=== PATIENT | female | born 2005 | race Caucasian/White ===

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

== ENCOUNTER 2024-01-23 11:13 | Emergency (ER) | payer OTHER, SELFPAY ==
[2024-01-23 11:24] VITALS: BP 115/70; PULSE 82; RESP 18; TEMP 36.5; O2SAT 100
[2024-01-23 11:25] VITALS: BP 115/70; PULSE 82; RESP 18; TEMP 36.5; O2SAT 100
--- NOTE | 2024-01-23 11:25 | ED.SKABFB ---
HPI - Skin/Abscess/Foreign Bdy General Chief complaint: Skin/Abscess/Foreign Body Stated complaint: rt thumb infection Source: patient Mode of arrival: ambulatory Limitations: no limitations History of Present Illness HPI narrative: 18 y/o female presented for c/o redness and swelling to right thumb since yesterday. Reports cutting the finger on a metal clip the day prior. Endorses decreased ROM to the thumb due to swelling. Cleaned the site several times with hydrogen peroxide. States the site became more red and irritated yesterday following yardwork and tree work; the wound was not covered at the time. States she removed debris from the site last night.Denies numbness, tingling, fever or chills. Related Data Home Medications Medication Instructions Recorded Confirmed epinephrine 0.3 mg/0.3 mL 0.3 ml IM PRN Anaphylaxis 07/28/21 08/23/23 injection, auto-injector etonogestrel 0.12 mg-ethinyl See Rx Instructions .Route .COMPLEX 08/10/22 08/23/23 estradiol 0.015 mg/24 hr vaginal ring (NuvaRing) Allergies Allergy/AdvReac Type Severity Reaction Status Date / Time venom-honey bee Allergy Severe Anaphylaxis Verified 01/23/24 11:24 AMOXICILLIN TRIHYDRATE AdvReac Intermediate Nausea and Uncoded 01/23/24 11:24 Vomiting POTASSIUM CLAVULANATE AdvReac Intermediate Nausea and Uncoded 01/23/24 11:24 Vomiting Review of Systems Review of Systems: CONSTITUTIONAL: Denies body aches, fever, chills, or sweats. CARDIOVASCULAR: Denies chest pain, palpitations, or edema. RESPIRATORY: Denies cough or dyspnea. GASTROINTESTINAL: Denies abdominal pain, nausea, vomiting, or diarrhea. SKIN: reports swelling to right thumb MUSCULOSKELETAL: Denies back pain, joint pain, or myalgia. NEUROLOGIC: Denies headache, numbness, tingling, or weakness. [facility] Social History Social History Gender identity (if verbalized by the patient): Female Comments At time of signature, I have reviewed and agree with nursing past medical, surgical, social and family history unless otherwise noted. Please see nursing chart for further information. There is no relevant family history pertinent to the presenting complaint Exam Narrative: GENERAL: Well-appearing ENT: Mucous membranes moist. Oropharynx without edema, erythema or lesions. CHEST: Clear to auscultation. HEART: Regular rate and rhythm. SKIN: Warm, dry. Right thumb palmar surface with approx 0.5cm linear superficial lac at IP joint with surrounding swelling, erythema, and tenderness to IP area. No fluctuance or active drainage. Dorsal aspect of 1st metacarpal with mildly erythematous streak vs abrasion approx 2.5cm, nontender. Decreased ROM at IP joint due to swelling. Finger cascade performed without difficulty. Sensation intact to digit. Cap refill <3seconds. NEURO: Alert and oriented x3. Extrem: Hand/finger images: 1. area of erythema, mild swelling, tender 2. IP joint with 0.5cm linear wound without drainage 3. linear area of superficial erythema Course Course Emergency Course: Patient is aware of diagnosis, understands and agrees to treatment plan. Anticipatory guidance given. Patient agrees to follow-up as directed and is aware of reasons to seek care at the emergency department. Portions of this record may have been created with voice recognition software Level of Care: Express Care Visit Vital Signs Vital signs: Vital Signs Temperature 97.7 F 01/23/24 11:24 Pulse Rate 82 01/23/24 11:24 Respiratory Rate 18 01/23/24 11:24 Blood Pressure 115/70 01/23/24 11:24 Pulse Oximetry 100 01/23/24 11:24 Oxygen Delivery Room Air 01/23/24 11:24 Temperature 97.7 F 01/23/24 11:25 Pulse Rate 82 01/23/24 11:25 Respiratory Rate 18 01/23/24 11:25 Blood Pressure 115/70 01/23/24 11:25 Pulse Oximetry 100 01/23/24 11:25 Oxygen Delivery Room Air 01/23/24 11:25 Reviewed
== END 2024-01-23 11:46 | disposition home or self-care (01) ==
PROVIDERS: Emergency Provider Nurse Practitioner Family; PCP Physician Assistant
DX: S61.001A Unspecified open wound of right thumb without damage to nail, initial encounter (principal); L03.011 Cellulitis of right finger; W45.8XXA Other foreign body or object entering through skin, initial encounter
CPT/HCPCS: 99213; G0463

== ENCOUNTER 2024-08-19 10:39 | Emergency (ER) | payer OTHER, SELFPAY ==
--- NOTE | ~2024-08-19 | XR_ITS ---
Clinical Indication: Cough PA and lateral views of the chest: Comparison: 03/30/2022 Findings: The lungs are clear, without evidence of focal consolidation or pleural effusion. Cardiome diastinal silhouette is within normal limits. Bones and soft tissues are unremarkable. Impression: Normal chest. Reviewed, dictated and finalized at location . [employer] ST[employer] Impression: Normal chest.
[2024-08-19 10:59] VITALS: BP 109/68; PULSE 74; RESP 16; TEMP 36.6; O2SAT 99
--- NOTE | 2024-08-19 12:16 | ED.GENADULT ---
HPI - General Adult General Chief complaint: Upper Respiratory Infection Stated complaint: cough/congestion Source: patient Mode of arrival: ambulatory Limitations: no limitations History of Present Illness HPI narrative: Patient presents for evaluation of a cough for the last 7-10 days. Cough is productive of yellow sputum. She also has nasal congestion, thick yellow drainage from the nares and a popping sensation in the ears. she denies any fever, chills, nausea, vomiting, diarrhea. She has several family members who currently have pneumonia. She has tried mucinex for her symptoms. She does not smoke. Related Data Home Medications ?Medication ?Instructions ?Recorded ?Confirmed ?Last Taken ?Type epinephrine 0.3 mg/0.3 mL 0.3 ml IM PRN Anaphylaxis 07/28/21 08/23/23 Unknown History injection, auto-injector etonogestrel 0.12 mg-ethinyl See Rx Instructions .Route .COMPLEX 08/10/22 08/23/23 Unknown History estradiol 0.015 mg/24 hr vaginal ring (NuvaRing) Allergies Allergy/AdvReac Type Severity Reaction Status Date / Time venom-honey bee Allergy Severe Anaphylaxis Verified 08/19/24 11:14 AMOXICILLIN TRIHYDRATE AdvReac Intermediate Nausea and Uncoded 08/19/24 11:14 Vomiting POTASSIUM CLAVULANATE AdvReac Intermediate Nausea and Uncoded 08/19/24 11:14 Vomiting Review of Systems Review of Systems: CONSTITUTIONAL: Denies fever, chills, or sweats. EYES: Denies visual changes, redness, or discharge. ENT: Reports popping sensation in the ears, sinus congestion and thick yellow nasal drainage. Denies rhinorrhea, sore throat, or otalgia. CARDIOVASCULAR: Denies chest pain, palpitations, or edema. RESPIRATORY: reports cough. GASTROINTESTINAL: Denies abdominal pain, nausea, vomiting, or diarrhea. GENITOURINARY: Denies dysuria or hematuria. SKIN: Denies rash or itching. MUSCULOSKELETAL: Denies back pain, joint pain, or myalgia. NEUROLOGIC: Denies headache, numbness, dizziness, or weakness. PSYCHIATRIC: Denies anxiety or depression. [facility] Past Medical History Medical History No pertinent past medical history Surgical History Surgical History History of tympanostomy tube placement History of tonsillectomy Family History Family History Mother Family history non-contributory Social History Social History Smoking status: Never smoker Substance use: never Living arrangements: with family Gender identity (if verbalized by the patient): Female Exam Narrative: GENERAL: Well-appearing, well-nourished, and in no acute distress. HEAD: Normocephalic, atraumatic. EYES: PERRLA and EOMI. ENT: Nares clear, no rhinorrhea or epistaxis. Mucous membranes moist. There is posterior pharyngeal erythema. There is bilateral tympanic membrane erythema with bulging of the TM's NECK: Supple. No adenopathy or masses. No carotid bruits or JVD CHEST: Mid wheezing present in all lung art. HEART: Regular rate and rhythm. No murmur heard. Normal peripheral pulses. ABDOMEN: Soft, nontender, nondistended, normal active bowel sounds. EXTREMITIES: Normal range of motion. No edema. SKIN: Warm, dry, no rash. NEURO: No focal deficits. Alert and oriented x3. PSYCH: Normal mood and affect. Course Course Emergency Course: This is a 18-year-old female who presented for evaluation of cough. CXR was normal. She does have otitis media on exam and has mild wheezing present. Will dc with cefdinir and prednisone. Increase hydration. Dony-muv-xmbkith agents for symptom management. Follow up with primary provider. Go to the ER for worsening symptoms. Patient in agreement with plan of care. Level of Care: Express Care Visit Vital Signs Vital signs: Vital Signs Temperature 36.6 C 08/19/24 10:59 Pulse Rate 74 08/19/24 10:59 Respiratory Rate 16 08/19/24 10:59 Blood Pressure 109/68 08/19/24 10:59 Pulse Oximetry 99 08/19/24 10:59 Oxygen Delivery Room Air 08/19/24 10:59 Temperature 36.6 C 08/19/24 10:59 Pulse Rate 74 08/19/24 10:59 Respiratory Rate 16 08/19/24 10:59 Blood Pressure 109/68 08/19/24 10:59 Pulse Oximetry 99 08/19/24 10:59 Oxygen Delivery Room Air 08/19/24 10:59 Medical Decision Making Vital Signs Vital Signs: Vital Signs Temperature 36.6 C 08/19/24 10:59 Pulse Rate 74 08/19/24 10:59 Respiratory Rate 16 08/19/24 10:59 Blood Pressure 109/68 08/19/24 10:59 Pulse Oximetry 99 08/19/24 10:59 Oxygen Delivery Room Air 08/19/24 10:59 Temperature 36.6 C 08/19/24 10:59 Pulse Rate 74 08/19/24 10:59 Respiratory Rate 16 08/19/24 10:59 Blood Pressure 109/68 08/19/24 10:59 Pulse Oximetry 99 08/19/24 10:59 Oxygen Delivery Room Air 08/19/24 10:59 Imaging Data Radiologist's impression: Procedure(s): XR chest 2V Accession Number(s): [id number] cc: Thien Zamora APRN; Jose, Audra Escalera PA-C~ Clinical Indication: Cough PA and lateral views of the chest: Comparison: 03/30/2022 Findings: The lungs are clear, without evidence of focal consolidation or pleural effusion. Cardiomediastinal silhouette is within normal limits. Bones and soft tissues are unremarkable. Impression: Normal chest. Discharge Plan Discharge Clinical Impression: Bilateral acute otitis media, Bilateral wheezing Patient Disposition: Home, Self-Care Condition: Stable Instructions: Antibiotic Form, Ear Infection (GEN), Wheezing (ED) Patient Language: Kenyan Prescriptions: New cefdinir 300 mg capsule 300 mg PO Q12H 10 Days Qty: 20 0RF prednisone 50 mg tablet 50 mg PO DAILY Qty: 5 0RF No Action epinephrine 0.3 mg/0.3 mL auto-injector 0.3 ml IM PRN cephalexin 500 mg capsule 500 mg PO Q8H 7 Days Qty: 21 0RF etonogestrel-ethinyl estradiol [NuvaRing] 0.12-0.015 mg/24 hr ring See Rx Instructions .ROUTE .COMPLEX Rx Instructions: 1 vag ring vaginally Follow-up/Referrals: Jose,ISAURA Perez [Primary Care Provider] - Time of Disposition: 12:18
--- OUTSIDE RECORDS SUMMARY | 2024-08-23 23:21 | XMS_ITS | Encounter Summary ---
Author Organization [facility] Address [address] [place] [address] Care Team Providers Care Stranding Machine Operator Name Role Phone Sam Riojas Primary Care Provider Dimitry valdovinos Reason for Visit * Reason Comments Follow-up right radius fractur e/xray/oop Encounter Details Date Type Department Care Team (Latest Contact Info) Description 07/18/2014 1:00 PM BED AND BREAKFAST OPERATOR - 07/18/2014 11:59 PM [facility] Hospital Encounter [facility] Pediatrics - Orthopedics [address] [place] [address] Natalie Villafuerte MD [address] [place] [address] Discharge Disposition: Home or Self Care Social History Tobacco Use Types Packs/Day Years Used Date Smoking Tobacco: Never Alcohol Use Standard Drinks/Week Comments No 0 (1 standard drink = 0.6 oz pur e alcohol) Sex and Gender Information Value Date Recorded Sex Assigned at Not on file Gender Identity Not on file Sexual Orientation Not on file documented as of this encounter Last Filed Vital Signs Vital Sign Reading Time Taken Comments Blood Pressure - - Pulse - - Temperature - - Respiratory Rate - - Oxygen Saturation - - Inhaled Oxygen Concentration - - Weight 46.7 kg (103 lb) 07/18/2014 1:17 PM BED AND BREAKFAST OPERATOR Height 139.8 cm (4' 7.04 ) 07/18/2014 1:17 PM CS T Body Mass Index 23.91 07/18/2014 1:17 PM BED AND BREAKFAST OPERATOR Body Mass Index Percentile 95.97% 07/18/2014 1:1 7 PM BED AND BREAKFAST OPERATOR Growth Chart: [facility] (Girls, 2- 20 Years) documented in this encounter Discharge Instructions * Patient Instructions* Natalie Villafuerte MD - 07/18/2014 1:47 PM BED AND BREAKFAST OPERATOR ORTHOPAEDIC CLINIC DISCHARGE INSTRUCTIONS SHEET DIAGNOSIS: No diagnosis found. Follow Up: No return appointment is needed, but call for return appointment if you have concerns oryour child has new symptoms or problems.. If you cannot keep an appointment, please call and [phone] ?? In [place] clinic - No ?? X-Rays next visit- No - none Activity Restrictions/Excuses: no PE, no team sports, no collision sports for two weeks, may resumePE on Tuesday08/05/2014 ?? Excused from School on 07/18/2014 Medications prescribed: ?? Over the counter medication may be used per instructions. Physicians orders: none. ?? Physical therapy - No To make an appointment, please call . To schedule the surgery discussed with the doctor during your child's office visit, call Aurelia at [phone], ext. [phone]. If you have a question for the orthopaedic nurse, call [phone], ext. [phone]. After visit summary completed by Natalie Villafuerte MD. AND BREAKFAST OPERATOR documented in this encounter Medications at Time of Discharge Medication Sig Dispensed Refills Start Date End Date IBUPROFEN PO Take by mouth as needed. documented as of this encounter Progress Notes * Sunshine Thibodeaux - 07/18/2014 3:26 PM CST Removed right SAC. Skin dry and intact. AND BREAKFAST OPERATOR * Natalie Villafuerte MD - 07/18/2014 1:45 PM CST PEDIATRIC ORTHOPAEDIC CLINIC NOTE NAME: Cammy Bullock DATE OF SERVICE: 07/18/2014 DATE: 2005 PCP: Sam Riojas HISTORY: Cammy Bullock is a 8 y.o. 10 m.o. female who presents 2 month(s) status post a closed reduction of her right radius shaft re-fracture through an old fracture site. She has been in a shortarm cast and has no complaints today. The patient rates her pain as a 0 out of 10. The patient denies new onset of numbness in her upper extremities. Date of reduction: 05/14/14 MEDICATIONS: Current outpatient prescriptions:IBUPROFEN PO, Take by mouth as needed., Disp: , Rfl: , ALLERGIES: Allergies as of 07/18/2014 - reviewed 07/18/2014 Allergen Reaction Noted ??? Augmentin 02/09/2011 ??? Bee venom Swelling 10/26/2012 IMMUNIZATIONS: Immunization status: stated as current, but no records available. Review of Systems - Negative except as above History obtained from mother General ROS: negative for - chills, fever or sleep disturbance Allergy and Immunology ROS: negative for - itchy/watery eyes or nasal congestion Hematological and Lymphatic ROS: negative for - bruising or fatigue Endocrine ROS: negative for - mood swings, skin changes or unexpected weight changes Respiratory ROS: no cough, shortness of breath, or wheezing Cardiovascular ROS: negative for - edema, loss of consciousness or shortness of breath Gastrointestinal ROS: no abdominal pain, change in bowel habits, or black or bloody stools Genito-Urinary ROS: no dysuria, trouble voiding, or hematuria Musculoskeletal ROS: negative for - gait disturbance, joint pain, joint stiffness, muscle pain or muscular weakness Neurological ROS: negative for - numbness/tingling or weakness Dermatological ROS: negative for - dry skin, pruritus or rash PHYSICAL EXAMINATION: General appearance: alert, cooperative, no distress, oriented to person, place, and time, well appearing. She has good head control. No rashes or abnormal dyspigmentation Extremities: The uninjured left upper extremity was examined and demonstrated normal skin, normal range of motion and alignment of all joint, normal motor, sensory and vascular examination, and was without pain. It was used for comparison when examining the injured right upper extremity. General appearance: no acute distress, alert/oriented x3, appropriate mood and affect and looks stated age The examination was performed out of splint/cast Skin: normal Swelling: none Tenderness: none, located along the radius. Deformity: No ROM: mild limitation in pronation, full wrist range of motion Strength: normal Gait: normal Neurological Exam: normal Vascular Exam: normal RADIOGRAPHS: AP and lateral xrays of the right forearm were taken and assessed today. -Radiographic Assessment: They show interval healing in acceptable alignment for her age ASSESSMENT: ICD-9-CM 1. Closed fracture of right radius, with routine healing, subsequent encounter V54.12 PLAN: We recommend the patient discontinue her cast today. Fracture precautions were reviewed today. The patient will stay out of PE/sports for 2 weeks, then she may resume all activities. The patient will follow up on an as needed basis. They will call in the interim with questions or concerns. AND BREAKFAST OPERATOR documented in this encounter Plan of Treatment Not on file documented as of this encounter Visit Diagnoses Diagnosis Closed fracture of right radius, with routine healing, subsequent encounter- Primary Closed fracture of unspecified part of radius (alone) documented in this encounter Care Teams Stranding Machine Operator Relationship Specialty Start Date End Date Sam Riojas license in 2016 PCP - General 02/05/11 09/23/16 documented as of this encounter
--- OUTSIDE RECORDS SUMMARY | 2024-08-23 23:21 | XMS_ITS | Encounter Summary ---
Author Organization [facility] Address [address] [place] [address] Care Team Providers Care Surgery Aide Name Role Phone Jaylen Cazares MD Primary Care Provider [phone] Reason for Visit * Reason Onset Date Comments Results 08/08/2020 Encounter Details Date Type Department Care Team (Late st Contact Info) Description 08/08/2020 Telephone [facility] [address] [phone] Zachary Gillespie APRN-CNP [address] [place] [address] Results Social History Tobacco Use Types Packs/Day Years Used Date Smoking Tobacco: Never Smokeless Tobacco: Never Alcohol Use Standard Drinks/Week Comments No 0 (1 standard drink = 0.6 oz pur e alcohol) Sex and Gender Information Value Date Recorded Sex Assigned at Not on file Gender Identity Not on file Sexual Orientation Not on file documented as of this encounter Miscellaneous Notes * Telephone Encounter - Uriah Pearson APRN-CNP - 08/08/2020 2:03 PM CLINIC PHYSICIAN See note on lab IC PHYSICIAN * Telephone Encounter - Treva Child - 08/08/2020 1:03 PM CST Who is calling? Parents Shanta Yes on Hippa What is the reason for call? Mom request result from daughter covid 19 test. Expected Response from the Clinic? (Please give Shanta a call back to advise [phone]. Thank you IC PHYSICIAN documented in this encounter Plan of Treatment Not on file documented as of this encounter Visit Diagnoses Not on filedocumented in this encounter Additional Health Concerns Infection Onset Date Last Indicated Resolved Time COVID-19 Under Investigation 08/05/2020 08/05/2020 08/08/2020 12:10 PM CLINIC PHYSICIAN COVID-19 Confirmed 08/05/2020 08/05/2020 0 4:35 AM CLINIC PHYSICIAN documented as of this encounter Care Teams Surgery Aide Relationship Specialty Start Date End Date Jaylen Cazares MD [address] [place] [phone] PCP - General Family Medicine 09/24/16 documented as of this encounter
--- OUTSIDE RECORDS SUMMARY | 2024-08-23 23:21 | XMS_ITS | Encounter Summary ---
Author Organization [facility] Address [address] [place] [address] Care Team Providers Care Paramedic Name Role Phone Jaylen Cazares MD Primary Care Provider [phone] Reason for Visit * Reason Comments Injury Knee right Encounter Details Date Type Department Care Team (Latest Contact Info) Description 01/17/2018 3:30 PM CDT - 01/17/2018 11:59 PM CDT Hospital Encounter [facility] Pediatrics - Orthopedics [address] [place] [address] Juana Larson MD Discharge Disposition: Home or Self Care Social [...] Sign Reading Time Taken Comments Blood Pressure 104/76 01/17/2018 3:32 PM CDT Pulse - - Temperature - - Respiratory Rate - - Oxygen Saturation - - Inhaled Oxygen Concentration - - Weight 71.6 kg (157 lb 13.6 oz) 01/17/2018 3:32 PM CDT Height - - Body Mass Index - - documented in this encounter Discharge Instructions * Patient Instructions* Mark Peck PA-C - 01/17/2018 3:50 PM CDT ORTHOPAEDIC CLINIC DISCHARGE INSTRUCTIONS SHEET Follow Up: As needed only Continue with knee immobilizer for school for 1 more week. -may weight bear as tolerated on the right leg. May resume PE, sports, and all activities as tolerated in 2-3 weeks as tolerated. School excuse: 01/17/2018 Tylenol and Ibuprofen (over the counter medication) may be used per instructions. If you have any questions or concerns in the interim, or if you need to schedule surgery for your child, you may contact our orthopedic office at . If you need to make a clinic appointment, please call . documented in this encounter Medications at Time of Discharge Medication Sig Dispensed Refills Start Date End Date ibuprofen (MOTRIN) 200 MG tablet Take by mouth every 6 hours as needed for Pain documented as of this encounter Progress Notes * Mark Peck PA-C - 01/17/2018 3:44 PM CDT PEDIATRIC ORTHOPAEDIC CLINIC NOTE NAME: Cammy Bullock DATE OF SERVICE: 01/17/2018 DATE: 2005 PCP: Jaylen Cazares MD HISTORY: Cammy Bullock is a 12 y.o. 4 m.o. female who sustained a right knee injury 9 day(s) ago. Mechanism of injury: she got her leg caught on someone else and fell, landing on the right knee. Immediate symptoms: immediate pain. Symptoms have been improving since then. She was seen at an outside hospital for xrays and has been in a knee immobilizer and using crutches. The patient rates her pain as a 5 out of 10. The patient denies new onset of numbness in her lower extremities. PAST MEDICAL HISTORY: Past Medical History: Diagnosis Date ??? NEGATIVE PAST MEDICAL HISTORY - SEE PROBLEM LIST ??? Radius fracture 02/05/2014 ??? Unspecified asthma PAST SURGICAL HISTORY: Past Surgical History: Procedure Laterality Date ??? ADENOIDECTOMY ??? MYRINGOTOMY WITH TUBE INSERTION MEDICATIONS: No current facility-administered medications for this encounter. ALLERGIES: Allergies as of 01/17/2018 - Elia as Reviewed 01/17/2018 Allergen Reaction Noted ??? Augmentin 02/09/2011 ??? Bee venom Swelling 10/26/2012 IMMUNIZATIONS: Immunization status: stated as current, but no records available. SOCIAL HISTORY: Patient lives with her parents. she does attend school. FAMILY HISTORY: Negative for any genetic conditions affecting children. ROS: A 12 point review of systems was obtained today and is positive for what is stated above. PHYSICAL EXAM: Patient is well-developed, well-nourished and in no acute distress. Breathing is non-labored and there are no audible wheezes. Head and trunk control are appropriate. There is no pain with rotation of the right or left hip. There is a negative straight leg raise bilaterally. Gait is antalgic. Evaluation of the uninjured left knee noted no skin lesions, neurovascularly intact. There is no tenderness/swelling/deformity. Ligamentously stable. Full range of motion. The right knee is neurovascularly intact with no active skin lesions. There is no effusion. There is mild tenderness around the patella, no joint line tenderness. Range of motion is unrestricted . Everardo is negative. Strength is fair. There is no varus laxity . There is no valgus laxity. There is no posterior sag. McMurrays test is negative. The extensor mechanism is intact. The patellar tracks well. Patellar apprehension test is negative. Testing for generalized ligamentous laxity is negative. The distal neurovascular examination is intact in the lower extremities. RADIOGRAPHS: AP and lateral xrays of the right knee were taken and reviewed today. They show no abnormalities. ASSESSMENT: Right knee injury, initial encounter PLAN: We reassured the family that her xrays are negative and she is doing well clinically. We recommend the patient continue with her knee immobilizer for 1 more week, until she is out of school. Then she may come out of it and work on range of motion, etc. The patient will stay out of PE/sports for 1-2 weeks. Patient's weight bearing status will be WBAT. As long as she is continuing to improve clinically over the next 2-3 weeks, she may gradually resume all activities as tolerated. If she hasany difficulties returning to activities, or any pain/problems in 3-4 weeks, we recommend they return to clinic. If she is doing well at that point, they do not need to follow up for this injury. The family was understanding of this plan and will follow up PRN. * Michell Holland RN - 01/17/2018 3:38 PM CDT - Reason for visit: right knee injury - When & How it happened: pt was in PE when she was tripped and landed on right knee on 01/06/18. - Where & how was it treated: had xrays done at [facility] and put in knee immobilizer - Pain level 5 out of 10 taking otc motrin prn documented in this encounter Plan of Treatment Not on file documented as of this encounter Visit Diagnoses Diagnosis Right knee injury, initial encounter- Primary documented in this encounter Care Teams Paramedic Relationship Specialty Start Date End Date Jaylen Cazares MD [address] [facility] [address] [address] [place] [phone] PCP - General Family Medicine 09/24/16 documented as of this encounter
--- OUTSIDE RECORDS SUMMARY | 2024-08-23 23:21 | XMS_ITS | Encounter Summary ---
Author Organization [facility] Address [address] [place] [address] Care Team Providers Care Crimper Assembler Name Role Phone Jaylen Cazares MD Primary Care Provider [phone] Reason for Visit * Reason Comments URI Encounter Details Date Type Department Care Team (Late st Contact Info) Description 08/05/2020 5:20 PM QUALITY TECH Office Visit [facility] AT [address] [phone] Provider, Shelley Laird [place] Nasopharyngitis acute (Primary Dx) Social History Tobacco Use Types Packs/Day Years [...] Sign Reading Time Taken Comments Blood Pressure 122/62 08/05/2020 5:34 PM QUALITY TECH Pulse 88 08/05/2020 5:34 PM QUALITY TECH Temperature 36.8 ??C (98.2 ??F) 08/05/2020 5:34 PM CS T Respiratory Rate 18 08/05/2020 5:34 PM QUALITY TECH Oxygen Saturation 98% 08/05/2020 5:34 PM QUALITY TECH Inhaled Oxygen Concentration - - Weight 79.4 kg (175 lb) 08/05/2020 5:34 PM QUALITY TECH Height - - Body Mass Index - - documented in this encounter Patient Instructions * Patient Instructions* Zachary Gillespie, DESKTOP ANALYST-PRODUCTION TRAINER - 08/05/2020 5:45 PM QUALITY TECH Images from the original note were not included. Patient Education Cold Symptoms in Children CHILD CARE ASSOCIATE TEACHER: A common cold is caused by a viral infection. The infection usually affects your child's upper respiratory system. Your child may have any of the following: ?? Chills and a fever that usually last 1 to 3 days ?? Sneezing ?? A dry or sore throat ?? A stuffy nose or chest congestion ?? Headache, body aches, or sore muscles ?? A dry cough or a cough that brings up mucus ?? Feeling tired or weak ?? Loss of appetite Seek care immediately if: ?? Your child's temperature reaches 105??F (40.6??C). ?? Your child has trouble breathing or is breathing faster than usual. ?? Your child's lips or nails turn blue. ?? Your child's nostrils flare when he or she takes a breath. ?? The skin above or below your child's ribs is sucked in with each breath. ?? Your child's heart is beating much faster than usual. ?? You see pinpoint or larger reddish-purple dots on your child's skin. ?? Your child stops urinating or urinates less than usual. ?? Your baby's soft spot on his or her head is bulging outward or sunken inward. ?? Your child has a severe headache or stiff neck. ?? Your child has chest or stomach pain. ?? Your baby is too weak to eat. Call your child's doctor if: ?? Your child's oral (mouth), pacifier, ear, forehead, or rectal temperature is higher than 100.4??F (38??C). ?? Your child's armpit temperature is higher than 99??F (37.2??C). ?? Your child is younger than 2 years and has a fever for more than 24 hours. ?? Your child is 2 years or older and has a fever for more than 72 hours. ?? Your child has had thick nasal drainage for more than 2 days. ?? Your child has ear pain. ?? Your child has white spots on his or her tonsils. ?? Your child coughs up a lot of thick, yellow, or green mucus. ?? Your child is unable to eat, has nausea, or is vomiting. ?? Your child has increased tiredness and weakness. ?? Your child's symptoms do not improve or get worse within 3 days. ?? You have questions or concerns about your child's condition or care. Treatment: Colds are caused by viruses and will not respond to antibiotics. Medicines are used to help control a cough, lower a fever, or manage other symptoms. Do not give [id number] cough or cold medicines to children younger than 4 years. These medicines can cause side effects that may harm your child. Your child may need any of the following: ?? Acetaminophen decreases pain and fever. It is available without a doctor's order. Ask how much to give your child and how often to give it. Follow directions. Read the labels of all other medicines your child uses to see if they also contain acetaminophen, or ask your child's doctor or pharmacist. Acetaminophen can cause liver damage if not taken correctly. ?? NSAIDs , such as ibuprofen, help decrease swelling, pain, and fever. This medicine is available with or without a doctor's order. NSAIDs can cause stomach bleeding or kidney problems in certain people. If your child takes blood thinner medicine, always ask if NSAIDs are safe for him or her. Always read the medicine label and follow directions. Do not give these medicines to children under 6 mon ths of age without direction from your child's healthcare provider. ?? Do not give aspirin to children under 18 years of age. Your child could develop Kalyn syndrome ifhe takes aspirin. Kalyn syndrome can cause life- threatening brain and liver damage. Check your child's medicine labels for aspirin, salicylates, or oil of wintergreen. Help relieve your child's symptoms: ?? Give your child plenty of liquids. Liquids will help thin and loosen mucus so your child can cough it up. Liquids will also keep your child hydrated. Do not give your child liquids that contain caffeine. Caffeine can increase your child's risk for dehydration. Liquids that help prevent dehydration include water, fruit juice, or broth. Ask your child's healthcare provider how much liquid to give your child each day. ?? Have your child rest for at least 2 days. Rest will help your child heal. ?? Use a cool mist humidifier in your child's room. Cool mist can help thin mucus and make it easier for your child to breathe. ?? Clear mucus from your child's nose. Use a bulb syringe to remove mucus from a baby's nose. Squeeze the bulb and put the tip into one of your baby's nostrils. Gently close the other nostril with your finger. Slowly release the bulb to suck up the mucus. Empty the bulb syringe onto a tissue. Repeat the steps if needed. Do the same thing in the other nostril. Make sure your baby's nose is clear be fore he or she feeds or sleeps. Your child's healthcare provider may recommend you put saline dropsinto your baby or child's nose if the mucus is very thick. ?? Soothe your child's throat. If your child is 8 years or older, have him or her gargle with salt water. Make salt water by adding ?? teaspoon salt to 1 cup warm water. You can give honey to children older than 1 year. Give ?? teaspoon of honey to children 1 to 5 years. Give 1 teaspoon of honey tochildren 6 to 11 years. Give 2 teaspoons of honey to children 12 or older. ?? Apply petroleum-based jelly around the outside of your child's nostrils. This can decrease irritation from blowing his or her nose. ?? Keep your child away from smoke. Do not smoke near your child. Do not let your older child smoke. Nicotine and other chemicals in cigarettes and cigars can make your child's symptoms worse. They can also cause infections such as bronchitis or pneumonia. Ask your child's healthcare provider for information if you or your child currently smoke and need help to quit. E-cigarettes or smokeless tobacco still contain nicotine. Talk to your healthcare provider before you or your child use these products. Prevent the spread of germs: ?? Keep your child away from other people while he or she is sick. This is especially important during the first 3 to 5 days of illness. The virus is most contagious during this time. ?? Have your child wash his or her hands often. He or she should wash after using the bathroom and before preparing or eating food. Have your child use soap and water. Show him or her how to rub soapy hands together, lacing the fingers. Wash the front and back of the hands, and in between the fingers. The fingers of one hand can scrub under the fingernails of the other hand. Teach your child to wash for at least 20 seconds. Use a timer, or sing a song that is at least 20 seconds. An example is the happy birthday song 2 times. Have your child rinse with warm, running water for several seconds.Then dry with a clean towel or paper towel. Your older child can use germ-killing gel if soap and water are not available. ?? Remind your child to cover a sneeze or cough. Show your child how to use a tissue to cover his or her mouth and nose. Have your child throw the tissue away in a trash can right away. Then your child should wash his or her hands well or use germ-killing gel. Show him or her how to use the bend ofthe arm if a tissue is not available. ?? Tell your child not to share items. Examples include toys, drinks, and food. ?? Ask about vaccines your child needs. Vaccines help prevent some infections that cause disease. Have your child get a yearly flu vaccine as soon as recommended, usually in May or June. Your child's healthcare provider can tell you other vaccines your child should get, and when to get them. Follow up with your child's doctor as directed: Write down your questions so you remember to ask them during your visits. ?? Copyright [employer] 2019 Information is for End User's use only and may not be sold, redistributed or otherwise used for commercial purposes. All illustrations and images included in CareNotes?? are the copyrighted property of [employer] Inc. or [employer] The above information is an audio visual aids director only. It is not intended as medical advice for individual conditions or treatments. Talk to your doctor, nurse or pharmacist before following any medical regimen to see if it is safe and effective for you. ITY TECH documented in this encounter Progress Notes * Zachary Gillespie APRN-CNP - 08/05/2020 5:35 PM CST Subjective: History was provided by mother and pt *Cammy Bullock is a 14 year old female who presents for evaluation: Chief Complaint Patient presents with ??? URI Primary Care Physician is Jaylen Cazares MD. Symptoms include nasal congestion, runny nose, sore throat, headache, chills, and cough. Onset of symptoms was 3 days ago, unchanged since that time. no Fever, denies any known exposures. Pt denies dyspnea, She is drinking plenty of fluids. Evaluation to date: none. Treatment to date: none Allergies Allergen Reactions ??? Augmentin ??? Bee Venom Swelling Bee stings Outpatient Medications Marked as Taking for the 08/05/20 encounter (Office Visit) with Provider, Shelley Exp [place] Medication Sig ??? Etonogestrel-Ethinyl Estradiol ([facility]) Past Medical History: Diagnosis Date ??? Radius fracture 02/05/2014 ??? Unspecified asthma(493.90) Medications reviewed. Review of Systems Pertinent items are noted in HPI Constitutional: Positive for chills, Negative for fatigue, fevers, sweats. Ears, nose, mouth, and throat: Positive for stuffy nose, runny nose, sore throat Respiratory: Positive for acute cough, Negative for shortness of breath, dyspnea on exertion Cardiovascular: Negative Gastrointestinal: Negative for nausea, vomiting, diarrhea Hematologic/lymphatic: Negative Musculoskeletal:Negative for body aches Neurological: Positive for headaches Objective: BP 122/62 Pulse 88 Temp 98.2 ??F (36.8 ??C) (Oral) Resp 18 Wt 79.4 kg (175 lb) SpO2 98% Skin: Physical Exam Exam General appearance: alert, cooperative, no distress, oriented to person, place, and time, wellappearing Ears: canals clear, tympanic membranes normal with scaring noted bilaterally, hearing intact to voice Nose: nares open; no septal deviation is noted, no maxillary tenderness, mucosa erythematous and swollen, clear rhinorrhea Throat: no mucous membrane abnormalities, lips, mucosa, and tongue normal; teeth and gums normal Neck: range of motion is intact, Nodes: no cervical adenopathy, non tender to palpation Lungs: breath sounds normal and symmetric; no rales or wheezes, non productive cough noted Heart: regular rhythm, normal S1 and S2, without murmurs, gallops or rubs Neurologic: mental status normal; alert and oriented X 3 Recent Results (from the past 24 hour(s)) STREP A SCREEN - POINT OF CARE (AMB) STL Collection Time: 08/05/20 5:36 PM Result Value Ref Range Strep A Rapid POCT Negative Negative Strep A Internal Control Present Lot # [id number] Expiration Date 08 04 2021 INFLUENZA A+B - POINT OF CARE (AMB) Collection Time: 08/05/20 5:36 PM Result Value Ref Range Influenza A Antigen Rapid Negative Negative Influenza B Antigen Rapid Negative Negative Influenza Internal Control present NEGATIVE - POSITIVE Influenza Lot Number [id number] Influenza Expiration Date 08 10 2021 Assessment: . Encounter Diagnoses Name Primary? Nasopharyngitis acute Yes Plan: Discussed dx and tx of URIs Discussed the importance of avoiding unnecessary abx therapy. Suggested symptomatic OTC remedies. RTC prn. You have been diagnosed with a viral infection. -Viral infections do not improve with antibiotics. -Viral symptoms can linger from 7-14 days -The color of discharge does not always reflect the need for an antibiotic, even during a viral illness it is normal for drainage to change from yellow to green at times. -Please refer to the CDC Get Smart (cdc.gov/getsmart) campaign for more details. There are many OTC medications and supportive care measures you can try to treat your symptoms until your symptoms resolve. -Tylenol or Ibuprofen for aches, pains. Take per package directions -Antihistamines like Claritin or Benadryl as needed for drainage. Take per package directions -Delsym as needed for coughing. Follow package directions -Frequent cough drops and lozenges -Increase fluids, especially decaffeinated ones -Sleep with head of bed raised to promote drainage -Avoid spreading the virus by remaining at home and away from others until you are fever-free (temperature below 100) for 24 hours. Good handwashing and covering your mouth when coughing are also important. If you are not improving or worsening in the next 5-7 days you must RETURN to the clinic, go to your PCP, or Urgent Care/ER to be SEEN and reevaluated. No further prescriptions or refills will be given by phone without another evaluation. If you develop a high fever 103+, neck stiffness, trouble breathing, chest pain, or other life threatening symptoms GO TO THE ER IMMEDIATELY. Continue to follow up with Jaylen Cazares MD as directed. After Visit Summary reviewed with patient. The caregiver today indicates understanding of these issues and agrees with the plan. Patient discharged to Home .SAVAGE Tavarez 08/05/2020 6:18 PM Orders Placed This Encounter ??? COVID-19 SARS-COV-2 PCR QUAL ([facility]) Anterior Nares, bilateral. [facility] Acct Bill Order Specific Question: Is the patient experiencing any symptoms consistent with COVID (eg. Fever,cough, shortness of breath)? Answer: Yes Order Specific Question: Date of symptoms onset? Answer: 08/02/2020 Order Specific Question: Symptoms as described by CDC. (Select all that apply) Answer: Chills [[id number]] Order Specific Question: Symptoms as described by CDC. (Select all that apply) Answer: Cough [[id number]] Order Specific Question: Symptoms as described by CDC. (Select all that apply) Answer: Nasal congestion [[id number]] Order Specific Question: Symptoms as described by CDC. (Select all that apply) Answer: Headache [[id number]] Order Specific Question: Symptoms as described by CDC. (Select all that apply) Answer: Runny nose [[id number]] Order Specific Question: Symptoms as described by CDC. (Select all that apply) Answer: Sore throat [[id number]] Order Specific Question: Hospitalized for COVID-19? Answer: No Order Specific Question: Admitted to ICU for COVID-19? Answer: No Order Specific Question: First COVID-19 test? Answer: Unknown Order Specific Question: Patient currently works in a healthcare setting with direct patient contact? Answer: Unknown Order Specific Question: Resident in a congregate care setting? Answer: Unknown Order Specific Question: ? Answer: Unknown Order Specific Question: Release to patient Answer: Immediate ??? STREP A SCREEN - POINT OF CARE (AMB) STL Order Specific Question: Release to patient Answer: Immediate ??? INFLUENZA A+B - POINT OF CARE (AMB) Order Specific Question: Release to patient Answer: Immediate ITY TECH documented in this encounter Plan of Treatment Not on file documented as of this encounter Procedures Procedure Name Priority Date/Time Associated Diagnosis Comments COVID-19 SARS-COV-2 PCR QUAL ([facility]) Routine 08/05/2020 5:42 PM QUALITY TECH Nasopharyngitis acute STREP A SCREEN - POINT OF CARE (AMB) STL Routine 08/05/2020 5:36 PM QUALITY TECH Nasopharyngitis acute INFLUENZA A+B - POINT OF CARE (AMB) Routine 08/05/2020 5:36 PM QUALITY TECH Nasopharyngitis acute documented in this encounter Results * (ABNORMAL) COVID-19 SARS-COV[facility]2 [facility] (08/05/2020 5:42 PM QUALITY TECH) SARS-CoV-2 FABIAN Detected( A) Not Detected [facility] INSURANCE BILL Comment: This nucleic acid amplification test was developed and its performance characteristics determined by [facility]. Nucleic acid amplification tests include PCR and TMA. This test has not been FDA cleared or approved. This test has been authorized by FDA under an Emergency Use Authorization (EUA). This test is only authorized for the duration of time the declaration that circumstances exist justifying the authorization of the emergency use of in vitro diagnostic tests for detection of SARS-CoV-2 virus and/or diagnosis of COVID-19 infection under section 564(b)(1) of the Act, 21 U.S.C. 360bbb-3(b) (1), unless the authorization is terminated or revoked sooner. When diagnostic testing is negative, the possibility of a false negative result should be considered in the context of a patient's recent exposures and the presence of clinical signs and symptoms consistent with COVID-19. An individual without symptoms of COVID-19 and who is not shedding SARS-CoV-2 virus would expect to have a negative (not detected) result in this assay. Microbiology SPECIMEN FROM NASOPHARYNGEAL STRUCTURE / Unknown 08/05/2020 5:42 PM QUALITY TECH 08/06/2020 Narrative Resulting Agency Comment Lab Testing performed at: [facility] [address] ?? [place] [id number] Zachary Gillespie DESKTOP ANALYST-PRODUCTION TRAINER LAB - MICROBIOLOG Y ORDERABLES [facility] INSURANCE BILL [address] [place] [address] * INFLUENZA A+B - POINT OF CARE (AMB) (08/05/2020 5:36 PM QUALITY TECH) Influenza A Antigen Rapid Negative Negative [facility] Influenza B Antigen Rapid Negative Negative [facility] Influenza Internal Control present NEGATIVE - POSITIVE [facility] Influenza Lot Number [id number] [facility] Influenza Expiration Date 08 10 2021 [facility] Other NASOPHARYNGEAL SWAB / Unknown 08/05/2020 5:36 PM QUALITY TECH Delprakash Jose Miguel [facility] - POINT OF CA RE ORDERABLES [facility] [address] [phone] * STREP A SCREEN - POINT OF CARE (AMB) ST[facility] (08/05/2020 5:36 PM QUALITY TECH) Strep A Rapid POCT Negative Negative [facility] Strep A Internal Control Present [facility] Lot # [id number] [facility] Expiration Date 08 04 2021 [facility] Throat ENTIRE THROAT (SURFACE REGION OF NECK) / Unknown 08/05/2020 5:36 PM QUALITY TECH Zachary Gillespie APRN-[facility] - POINT OF CA RE ORDERABLES Performing Organization Address City/[facility]/ZIP Co de Phone Number [facility] [address] [place] [address] documented in this encounter Visit Diagnoses Diagnosis Nasopharyngitis acute- Primary Acute nasopharyngitis (common cold) documented in this encounter Additional Health Concerns Infection Onset Date Last Indicated Resolved Time COVID-19 Under Investigation 08/05/2020 08/05/2020 08/08/2020 12:10 PM QUALITY TECH documented as of this encounter Care Teams Crimper Assembler Relationship Specialty Start Date End Date Jaylen Cazares MD [address] [facility] [address] [place] [address] PCP - General Family Medicine 09/24/16 documented as of this encounter
--- OUTSIDE RECORDS SUMMARY | 2024-08-23 23:21 | XMS_ITS | Encounter Summary ---
Author Organization [facility] Address [address] [facility] [place] [address] Care Team Providers Care Mounter Automatic Name Role Phone Jaylen Cazares MD Primary Care Provider [phone] Encounter Details Date Type Department Care Team (Late st Contact Info) Description 06/14/2020 10:30 AM CDT - 06/14/2020 12:30 PM CDT Hospital Encounter [facility] [address] [place] [address] [facility] [place] [address] Emergency Medicine Discharge Disposition: Home or Self Care Social History Tobacco Use Types Packs/Day Years Used Date Smoking Tobacco: Never Alcohol Use Standard Drinks/Week Comments No 0 (1 standard drink = 0.6 oz pur e alcohol) Sex and Gender Information Value Date Recorded Sex Assigned at Not on file Gender Identity Not on file Sexual Orientation Not on file documented as of this encounter Medications at Time of Discharge Medication Sig Dispensed Refills Start Date End Date ibuprofen (MOTRIN) 200 MG tablet Take by mouth every 6 hours as needed for Pain documented as of this encounter Plan of Treatment Not on file documented as of this encounter Visit Diagnoses Diagnosis Insect bite (nonvenomous) of right forearm, initial encounter (CODE) Bitten or stung by nonvenomous insect and other nonvenomous arthropods, initial encounter documented in this encounter Care Teams Mounter Automatic Relationship Specialty Start Date End Date Jaylen Cazares MD [address] [facility] [address] [place] [id number] PCP - General Family Medicine 09/24/16 documented as of this encounter
--- OUTSIDE RECORDS SUMMARY | 2024-08-23 23:21 | XMS_ITS | Patient Health Summary ---
Author Organization [facility] Address [address] [place] [address] Care Team Providers Care Lockstitch Sleeve Maker Name Role Phone Jaylen Cazares MD Primary Care Provider [phone] [facility],non-owned Affiliates and Associated Physician Practices is amultiple site organization consisting of ambulatory clinics and hospital sitesin [place], [place], [place]. This disclosure is being madepursuant to the Care Everywhere program and may not contain all information available regarding this patient. Last updated 18.[facility] Allergies * Augmentin * Bee Venom(Swelling) Medications * Be aware that medications may not be up to date on this document. Alwaysverify current medications with the patient. * ibuprofen (MOTRIN) 200 MG tablet Take by mouth every 6 hours as needed for Pain * Etonogestrel-Ethinyl Estradiol ([facility]) Active Problems Problem Noted Date Diagnosed Date Right knee injury, initial encounter 01/17/2018 Fracture of right radius 05/02/2014 Closed fracture of right radius 03/07/2014 Radius fracture 02/05/2014 Contusion of foot, right 05/22/2013 Injury of right ankle 02/23/2011 Social History Tobacco Use Types Packs/Day Years Used Date Smoking Tobacco: Never Smokeless Tobacco: Never Alcohol Use Standard Drinks/Week Comments No 0 (1 standard drink = 0.6 oz pur e alcohol) Sex and Gender Information Value Date Recorded Sex Assigned at Not on file Gender Identity Not on file Sexual Orientation Not on file Last Filed Vital Signs Vital Sign Reading Time Taken Comments Blood Pressure 122/62 08/05/2020 5:34 PM QUANTITATIVE DEVELOPER Pulse 88 08/05/2020 5:34 PM QUANTITATIVE DEVELOPER Temperature 36.8 ??C (98.2 ??F) 08/05/2020 5:34 PM CS T Respiratory Rate 18 08/05/2020 5:34 PM QUANTITATIVE DEVELOPER Oxygen Saturation 98% 08/05/2020 5:34 PM QUANTITATIVE DEVELOPER Inhaled Oxygen Concentration - - Weight 79.4 kg (175 lb) 08/05/2020 5:34 PM QUANTITATIVE DEVELOPER Height 139.8 cm (4' 7.04 ) 07/18/2014 1:17 PM CS T Body Mass Index - - Procedures * COVID-19 SARS-COV-2 PCR QUAL ([facility])(Performed 08/05/2020) Performed for Nasopharyngitis acute * INFLUENZA A+B - POINT OF CARE (AMB)(Performed 08/05/2020) Performed for Nasopharyngitis acute * STREP A SCREEN - POINT OF CARE (AMB) STL(Performed 08/05/2020) Performed for Nasopharyngitis acute * XR FOREARM RIGHT 2VW OR MORE(Performed 05/28/2014) Performed for Closed fracture of right radius, with routine healing, subsequent encounter * XR FOREARM RIGHT 2VW OR MORE(Performed 05/14/2014) Performed for Fracture of right radius, closed, with routine healing, subsequent encounter * IMAGING/RADIOLOGY/XRAY RESULTS ORDER(Performed 08/09/2012) * IMAGING/RADIOLOGY/XRAY RESULTS ORDER(Performed 03/24/2012) * IMAGING/RADIOLOGY/XRAY RESULTS ORDER(Performed 03/02/2012) * IMAGING/RADIOLOGY/XRAY RESULTS ORDER(Performed 09/07/2011) Results * (ABNORMAL) COVID-19 SARS-COV-2 PCR QUAL ([facility]) (08/05/2020 5:42 PM QUANTITATIVE DEVELOPER) SARS-CoV-2 FABIAN Detected( A) Not Detected [facility] INSURANCE BILL Comment: This nucleic acid amplification test was developed and its performance characteristics determined by [employer]. Nucleic acid amplification tests include PCR and [...] NASOPHARYNGEAL STRUCTURE / Unknown 08/05/2020 5:42 PM QUANTITATIVE DEVELOPER 08/06/2020 Narrative Resulting Agency Comment Lab Testing performed at: [facility] [employer] ?? [facility] [phone] [facility] Y ORDERABLES [facility] INSURANCE BILL [address] [place] [address] * STREP A SCREEN - POINT OF CARE (AMB) STL (08/05/2020 5:36 PM QUANTITATIVE DEVELOPER) Strep A Rapid POCT Negative Negative [facility] Strep A Internal Control Present [facility] Lot # [id number] [facility] Expiration Date 08 04 2021 [facility] Throat ENTIRE THROAT (SURFACE REGION OF NECK) / Unknown 08/05/2020 5:36 PM QUANTITATIVE DEVELOPER [facility] - POINT OF CA RE ORDERABLES [facility] [address] [phone] * INFLUENZA A+B - POINT OF CARE (AMB) (08/05/2020 5:36 PM QUANTITATIVE DEVELOPER) Influenza A Antigen Rapid Negative Negative [facility] Influenza B Antigen Rapid Negative Negative [facility] Influenza Internal Control present NEGATIVE - POSITIVE [facility] Influenza Lot Number [id number] [facility] Influenza Expiration Date 08 10 2021 [facility] Other NASOPHARYNGEAL SWAB / Unknown 08/05/2020 5:36 PM QUANTITATIVE DEVELOPER Zachary Gillespie DENTAL MOLD MAKER-TRAVEL ACCOMMODATION INSPECTOR LAB - POINT OF CA RE ORDERABLES [facility] [address] [place], [place] [address] [phone] * XR FOREARM 2 VW RIGHT (05/28/2014 8:54 AM CDT) Only the most recent of2 resultswithin the time period is included. Anatomical Region Laterality Modality Upper Extremity Radiographic Heidi ging 05/28/2014 9:11 AM CDT Impressions 05/28/2014 9:12 AM CDT Casted, healing right radial diaphyseal fracture in unchanged alignment. Narrative 05/28/2014 9:12 AM CDT EXAMINATION: ??Right forearm 2 views HISTORY: Radius fracture followup COMPARISON: 05/14/2014. FINDINGS: PA and lateral views of the right forearm redemonstrate the transverse fracture through the proximal right radial diaphysis in unchanged alignment with mild volar angulation at its apex. There is callus formation and periosteal reaction about the fracture site, consistent with healing. Overlying casting material obscures bone and soft tissue detail. Procedure Note Lyn Reddy MD - 05/28/2014 EXAMINATION: Right forearm 2 views HISTORY: Radius fracture followup COMPARISON: 05/14/2014. FINDINGS: PA and lateral views of the right forearm redemonstrate the transverse fracture through the proximal right radial diaphysis in unchanged alignment with mild volar angulation at its apex. There is callus formation and periosteal reaction about the fracture site, consistent with healing. Overlying casting material obscures bone and soft tissue detail. IMPRESSION Casted, healing right radial diaphyseal fracture in unchanged alignment. Abdiaziz Galeas MD DIAGNOSTIC IMAGING O RDERABLES * IMAGING/RADIOLOGY/XRAY RESULTS ORDER (08/09/2012 1:41 PM QUANTITATIVE DEVELOPER) Only the most recent of4 resultswithin the time period is included. Anatomical Region Laterality Modality Other Narrative 08/09/2012 1:41 PM QUANTITATIVE DEVELOPER Procedure Note Document, Scanned - 08/09/2012 1:41 PM CST Scanned Document IMAGING Care Teams Lockstitch Sleeve Maker Relationship Specialty Start Date End Date Jaylen Cazares MD [address] [address] PCP - General Family Medicine 09/24/16
--- OUTSIDE RECORDS SUMMARY | 2024-08-23 23:21 | XMS_ITS | Encounter Summary ---
Author Organization [facility] Address [address] [place] [address] Care Team Providers Care Nurseryperson Name Role Phone Jaylen Cazares MD Primary Care Provider [phone] Encounter Details Date Type Department Care Team (Latest Contact Info) Description 05/05/2021 1:00 PM CDT - 05/05/2021 11:59 PM CDT Hospital Encounter Karely ceasar [facility] at [address] [address] Ewa Beard MD [address] [place] [id number] Discharge Disposition: Home or Self Care Social History Tobacco Use Types Packs/Day Years Used Date Smoking Tobacco: Never Smokeless Tobacco: Never Alcohol Use Standard Drinks/Week Comments No 0 (1 standard drink = 0.6 oz pur e alcohol) Sex and Gender Information Value Date Recorded Sex Assigned at Not on file Gender Identity Not on file Sexual Orientation Not on file COVID-19 Exposure Response Date Recorded In the last month, have you been in contact with someone who was confirmed or suspected to have Coronavirus / COVID-19? Unable to assess 05/05/2021 12:59 PM CDT documented as of this encounter Medications at Time of Discharge Medication Sig Dispensed Refills Start Date End Date Etonogestrel-Ethinyl Estradiol ([facility]) ibuprofen (MOTRIN) 200 MG tablet Take by mouth every 6 hours as needed for Pain documented as of this encounter Plan of Treatment Not on file documented as of this encounter Visit Diagnoses Diagnosis Tachycardia Tachycardia, unspecified documented in this encounter Care Teams Nurseryperson Relationship Specialty Start Date End Date Jaylen Cazares MD [address] [facility] [address] [place] [id number] PCP - General Family Medicine 09/24/16 documented as of this encounter
--- OUTSIDE RECORDS SUMMARY | 2024-08-23 23:21 | XMS_ITS | Encounter Summary ---
Author Organization [facility] Address [address] [facility] [place] [address] Care Team Providers Care Print Production Manager Name Role Phone Jaylen Cazares MD Primary Care Provider [phone] Encounter Details Date Type Department Care Team (Latest Contact Info) Description 05/05/2021 Travel Social History Tobacco Use Types Packs/Day Years [...] PM CDT documented as of this encounter Plan of Treatment Not on file documented as of this encounter Visit Diagnoses Not on filedocumented in this encounter Care Teams Print Production Manager Relationship Specialty Start Date End Date Jaylen Cazares MD [address] [facility] [address] [place] [address] PCP - General Family Medicine 09/24/16 documented as of this encounter
--- OUTSIDE RECORDS SUMMARY | 2024-08-23 23:21 | XMS_ITS | Referral Summary ---
Author Organization [facility] Address [address] [facility] [place] [address] Care Team Providers Care Medical Office Representative Name Role Phone Jaylen Cazares MD Primary Care Provider [phone] Source Comments [facility],non-[facility] Affiliates and Associated Physician Practices is amultiple site organization consisting of ambulatory clinics and hospital sitesin [place], [place], [place] and [place]. This disclosure is being madepursuant to the Care Everywhere program and may not contain all information available regarding this patient. Last updated 18.[facility] Allergies Active Allergy Reactions Criticality Noted Date Comments Augmentin 02/09/2011 Bee Venom Swelling 10/26/2012 Bee stings Medications * Be aware that medications may not be up to date on this document. Alwaysverify current medications with the patient. Medication Sig Dispensed Refills Start Date End Date Status ibuprofen (MOTRIN) 200 MG tablet Take by mouth every 6 hours as needed for Pain Active Etonogestrel-Ethinyl Estradiol ([facility]) Active Active Problems Problem Noted Date Diagnosed Date [...] Comments Blood Pressure 122/62 08/05/2020 5:34 PM SOD STRIPPER Pulse 88 08/05/2020 5:34 PM SOD STRIPPER Temperature 36.8 ??C (98.2 ??F) 08/05/2020 5:34 PM CS T Respiratory Rate 18 08/05/2020 5:34 PM SOD STRIPPER Oxygen Saturation 98% 08/05/2020 5:34 PM SOD STRIPPER Inhaled Oxygen Concentration - - Weight 79.4 kg (175 lb) 08/05/2020 5:34 PM SOD STRIPPER Height 139.8 cm (4' 7.04 ) 07/18/2014 1:17 PM CS T Body Mass Index - - Plan of Treatment Not on file Care Teams Medical Office Representative Relationship Specialty Start Date End Date Jaylen Cazares MD [address] [facility] [address] [place] [address] PCP - General Family Medicine 09/24/16
--- OUTSIDE RECORDS SUMMARY | 2024-08-23 23:21 | XMS_ITS | Clinical Summary ---
Author Organization [facility] Address [address] [facility] [place] [address] Care Team Providers Care Anode Builder Name Role Phone Jaylen Cazares MD Primary Care Provider [phone] Source Comments [facility],non-[facility] Affiliates and Associated Physician Practices is amultiple site organization consisting of ambulatory clinics and hospital sitesin [place], [place], [place] and [place]. This disclosure is being madepursuant to the Care Everywhere program and may not contain all information available regarding this patient. Last updated 18.[facility] [employer] Allergies Active Allergy Reactions Criticality Noted Date [...] as needed for Pain Active Etonogestrel-Ethinyl Estradiol ([facility]) Active Active Problems Problem Noted Date Diagnosed [...] Comments Blood Pressure 122/62 08/05/2020 5:34 PM SALES DEVELOPMENT DIRECTOR Pulse 88 08/05/2020 5:34 PM SALES DEVELOPMENT DIRECTOR Temperature 36.8 ??C (98.2 ??F) 08/05/2020 5:34 PM CS T Respiratory Rate 18 08/05/2020 5:34 PM SALES DEVELOPMENT DIRECTOR Oxygen Saturation 98% 08/05/2020 5:34 PM SALES DEVELOPMENT DIRECTOR Inhaled Oxygen Concentration - - Weight 79.4 kg (175 lb) 08/05/2020 5:34 PM SALES DEVELOPMENT DIRECTOR Height 139.8 cm (4' 7.04 ) 07/18/2014 1:17 PM CS T Body Mass Index - - Plan of Treatment Health Maintenance Due Date Last Done Comments HIV SCREENING 2019 HPV VACCINE (1 - 3-dose series) 2019 CHLAMYDIA/GONORRHEA SCREENING 2020 HEPATITIS C SCREENING 08/17/2022 DTAP/TDAP/TD VACCINES (1 - Tdap) 2023 HEPATITIS B VACCINE (1 of 3 - 19+ 3-dose series) 2023 DEPRESSION SCREENING 09/05/2023 COVID-19 VACCINE (1 - 2023-2 5 season) 2024 INFLUENZA VACCINE (#1) 2024 ZOSTER VACCINE (1 of 2) 2054 HIB VACCINE Aged Out No longer eligi ble based on patient's age to complete this topic MENINGOCOCCAL VACCINE Aged Out No david cinthia eligible based on patient's age to complete this topic PNEUMOCOCCAL VACCINE Aged Out No long er eligible based on patient's age to complete this topic Care Teams Anode Builder Relationship Specialty Start Date End Date Jaylen Cazares MD [address] [facility] [address] [facility] [address] [place] [address] PCP - General Family Medicine 09/24/16
--- OUTSIDE RECORDS SUMMARY | 2024-08-23 23:22 | XMS_ITS | Encounter Summary ---
Author Organization [facility] Address [address] [facility] [place] [address] Care Team Providers Care Air Brush Artist Name Role Phone Sam Riojas Primary Care Provider Dimitry valdovinos Reason for Visit * Reason Comments Injury Elbow left Encounter Details Date Type Department Care Team (Latest Contact Info) Description 06/22/2012 1:00 PM CDT - 06/22/2012 11:59 PM CDT Hospital Encounter [facility] Pediatrics - Orthopedics [address] [facility] [place] [address] Natalie Villafuerte MD [address] [place] [address] Discharge Disposition: Home or Self Care Social History Tobacco Use Types Packs/Day Years Used Date Smoking Tobacco: Never Alcohol Use Standard Drinks/Week Comments No 0 (1 standard drink = 0.6 oz pur e alcohol) Sex and Gender Information Value Date Recorded Sex Assigned at Not on file Gender Identity Not on file Sexual Orientation Not on file documented as of this encounter Discharge Instructions * Patient Instructions* Natalie Villafuerte MD - 06/22/2012 2:22 PM CDT ORTHOPAEDIC CLINIC DISCHARGE INSTRUCTIONS SHEET Follow Up: Please make a return appointment for 2 week(s) Limit strenuous activity--no running, jumping, playground equipment, physical education activities,sports activities until released. School excuse: 06/22/2012 Tylenol and Ibuprofen (over the counter medication) may be used per instructions. Cast Care: Keep cast clean and dry. Do not scratch or put anything inside the cast. May use Benadryl by mouth (available over the counter) if needed for itching per instructions on box. If you have any questions or concerns in the interim, or if you need to schedule surgery for your child, you may contact our orthopedic office at . If you need to make a clinic appointment, please call . documented in this encounter Medications at Time of Discharge Medication Sig Dispensed Refills Start Date End Date Ibuprofen (IBU-200 PO) Take 100 mg by mouth. 11/23/2012 ibuprofen (IBU-DROPS) 40 MG/ML suspension Take 12.5 mL by mouth every 6 hours as needed. 10/26/2012 documented as of this encounter Progress Notes * Natalie Villafuerte MD - 06/22/2012 5:49 PM CDT PEDIATRIC ORTHOPAEDIC CLINIC NOTE NAME: Cammy Bullock DATE OF SERVICE: 06/22/2012 DATE: 2005 PCP: Sam Riojas HISTORY: Cammy Bullock is a 6 y.o. 10 m.o. female who presents for evaluation of right elbow pain. she is accompanied by her mother and report that this started approximately 1 week(s) ago. Inciting event: fell off monkey bars and onto shredded tires. Patient reports the pain occurs continuously. Pain is relieved by rest, medication: ibuprofen and is aggravated by any movement. The patient rates her pain as a 4 out of 10. The patient denies new onset of numbness in her upper extremities. PAST MEDICAL HISTORY: No past medical history on file. PAST SURGICAL HISTORY: Past Surgical History Procedure Date ??? Myringotomy with tube insertion MEDICATIONS: Current outpatient prescriptions:Ibuprofen (IBU-200 PO), Take 100 mg by mouth., Disp: , Rfl: ; ibuprofen (IBU-DROPS) 40 MG/ML suspension, Take 12.5 mL by mouth every 6 hours as needed., Disp: , Rfl: ALLERGIES: Allergies as of 06/22/2012 - reviewed 06/22/2012 Allergen Reaction Noted ??? Augmentin 02/09/2011 IMMUNIZATIONS: Immunization status: stated as current, but [...] wheezes. Head and trunk control are appropriate. The patient ambulates throughout the office with a symmetric heel-to-toe gait without a limp. Examination of the upper extremities reveals no obvious deformity or malalignment. Elbow exam: she is very protective of her elbow and complains of pain anywhere that I touch her arm, from her wrist to her shoulder, volar and dorsal. She appears to have the most tenderness over herolecranon. She has minimal to no tenderness to her medial or lateral epicondylar region. I am able to passively pronate her wrist to 80 degrees and supinate to 70 degrees without pain. The distal neurovascular exam is intact in both upper extremities. RADIOGRAPHS: AP and lateral xrays of the right elbow show no fracture or osseous injury ASSESSMENT: right elbow pain without obvious fracture PLAN: Today I will place her into a long arm cast for 2 weeks. She will return to clinic for removal of the cast, 3 views of the right elbow, and clinical examination. She is to stay out of PE or sports until seen back in clinic. Mother's questions were answered to the best of my ability. Mother will call in the interim with questions or concerns. * Mohinder Rain - 06/22/2012 3:35 PM CDT Applied LAC right side. Cast Care instructions given to patient and family. They acknowledged understanding. * Ira Jain RN - 06/22/2012 1:23 PM CDT Patient fell off monkey bars onto shredded tires and injured left elbow. Taken the same day to [facility] for xrays and sling.Patient still comes of pain level of 8. Mom gave 100 mg of tylenol this am at 0800. documented in this encounter Plan of Treatment Not on file documented as of this encounter Visit Diagnoses Diagnosis Pain in joint, upper arm documented in this encounter Care Teams Air Brush Artist Relationship Specialty Start Date End Date Sam Riojas license in 2016 PCP - General 02/05/11 09/23/16 documented as of this encounter
--- OUTSIDE RECORDS SUMMARY | 2024-08-23 23:22 | XMS_ITS | Encounter Summary ---
Author Organization [facility] Address [address] [facility] [place] [address] Care Team Providers Care Title Camera Operator Name Role Phone Sam Riojas Primary Care Provider Dimitry valdovinos Reason for Visit * Reason Comments Cast problem cast rubbing Encounter Details Date Type Department Care Team (Latest Contact Info) Description 05/21/2014 10:30 AM CDT - 05/21/2014 11:59 PM CDT Hospital Encounter [facility] Pediatrics - Orthopedics [address] [facility] [address] [address] [place], [place] [id number] Natalie Villafuerte MD [address] [place] [address] Mark Peck PA-C [address] [place] [address] Discharge Disposition: Home or Self Care Social [...] Sig Dispensed Refills Start Date End Date hydrocodone-acetaminophen 7.5-325 MG/15ML solution Take 5 mL by mouth every 4 hours as needed for Pain. 118 mL 1 05/14/2014 06/20/2014 IBUPROFEN PO Take by mouth as needed. 01/17/2018 documented as of this encounter Nursing Notes * Evette Ram - 05/21/2014 10:51 AM CDT Pt here for cast rubbing and feels soft. Pt's cast was examined and seems to be well intact. Pt's cast was padded with some moleskin around the problem areas. Pt stated that the cast was feeling better now. Mom was given extra moleskin for the cast if there were any more spots rubbing. Pt was also sent out with instructions to get an xray today instead of coming on . Mom agreed with plan and was told Dr. Villafuerte would call her with the results. Mom and Pt acknowledged understanding. Plan discussed with Dr. Villafuerte. documented in this encounter Plan of Treatment Not on file documented as of this encounter Visit Diagnoses Diagnosis Closed fracture of unspecified part of radius (alone)- Primary documented in this encounter Care Teams Title Camera Operator Relationship Specialty Start Date End Date Sam Riojas license in 2016 PCP - General 02/05/11 09/23/16 documented as of this encounter
--- OUTSIDE RECORDS SUMMARY | 2024-08-23 23:22 | XMS_ITS | Encounter Summary ---
Author Organization [facility] Address [address] [place] [address] Care Team Providers Care Auction Clerk Name Role Phone Sam Riojas Primary Care Provider Dimitry valdovinos Reason for Visit * Reason Comments Fracture Arm oop, xray Encounter Details Date Type Department Care Team (Latest Contact Info) Description 08/01/2012 10:45 AM BANKING AND FINANCE INSTRUCTOR - 08/01/2012 11:59 PM BANKING AND FINANCE INSTRUCTOR Hospital Encounter [facility] Pediatrics - Orthopedics [address] [place] [address] Mark Peck PA-C [address] [place] [address] Discharge Disposition: Home or Self Care Social [...] * Patient Instructions* Mark Peck PA-C - 08/01/2012 11:43 AM BANKING AND FINANCE INSTRUCTOR ORTHOPAEDIC CLINIC DISCHARGE INSTRUCTIONS SHEET Follow Up: As needed only May resume PE, sports, and all activities as tolerated in 1 week (08/08/12). School excuse: 08/01/2012 Tylenol and Ibuprofen (over the counter medication) may be used per instructions. If you have any questions or concerns in the interim, or if you need to schedule surgery for your child, you may contact our orthopedic office at . If you need to make a clinic appointment, please call . ING AND FINANCE INSTRUCTOR documented in this encounter Medications at Time of Discharge Medication Sig Dispensed Refills Start Date End Date Ibuprofen (IBU-200 PO) Take 100 mg by mouth. 11/23/2012 ibuprofen (IBU-DROPS) 40 MG/ML suspension Take 12.5 mL by mouth every 6 hours as needed. 10/26/2012 documented as of this encounter Progress Notes * Mark Peck PA-C - 08/01/2012 11:45 AM CST PEDIATRIC ORTHOPAEDIC CLINIC NOTE NAME: Cammy Bullock DATE OF SERVICE: 08/01/2012 DATE: 2005 PCP: Sam Riojas Chief Complaint Patient presents with ??? Fracture Arm oop, xray HISTORY: Cammy Bullock is a 6 y.o. 11 m.o. female who presents 7 week(s) status post a right elbow injury. She was last seen in clinic on 06/22/12, and xrays (forearm and elbow) at that time were negative. She was treated conservatively with a long arm cast. We recommended a 2 week follow up appo intment, and she is now returning 6 weeks later. Her mother states that Cammy was sick and unableto come to clinic until now. She has been tolerating her cast fine, yet reports her pain today as a8 out of 10. The patient denies new onset of numbness in her upper extremities. PHYSICAL EXAM: Patient is well-developed, well-nourished and in no acute distress. She is smiling and resting comfortably on the exam table. Examination of the upper extremities out of the cast showsthe skin intact and without irritation secondary to the casting. She has no guarding or obvious pain with palpation of the elbow, but reports that it does hurt. There is no edema, ecchymosis, or angular malalignment noted. She is very hesitant with any ROM testing today. She does show limited active elbow, forearm, and wrist motion today, however it is decreased when compared to the other side. The distal neurovascular examination is intact in the upper extremities. RADIOGRAPHS: AP and lateral xrays of the right elbow show no acute or healing fractures. ASSESSMENT: right elbow injury PLAN: We recommend the patient come out of her cast today. She was encouraged to start working on gentle range of motion exercises and was shown some of these in the office today. We will keep her out of PE/sports for 1 more week, and then allow her to gradually resume her regular activities, as this will hopefully encourage her to start using her arm. We will see her back in 3-4 weeks for a ROM check only if her mother has concerns. She was understanding of this plan and will follow up PRN. ING AND FINANCE INSTRUCTOR * Evette Wei - 08/01/2012 11:31 AM CST Removed LAC right. Skin dry and intact. ING AND FINANCE INSTRUCTOR * Ira Jain RN - 08/01/2012 10:51 AM CST Patient complaining of pain level of an eight. Mom gave her ibu 100 mg this am. Verbally made S. Hietpas aware of pain level. Awaiting any orders given thereafter. ING AND FINANCE INSTRUCTOR documented in this encounter Procedure Notes * Altagracia, Scanned - 08/09/2012 1:41 PM CSTAssociated Order(s): IMAGING/RADIOLOGY/XRAY RESULTS ORDER ING AND FINANCE INSTRUCTOR documented in this encounter Plan of Treatment Not on file documented as of this encounter Procedures Procedure Name Priority Date/Time Associated Diagnosis Comments IMAGING/RADIOLOGY/X RAY RESULTS ORDER 08/09/2012 1:41 PM BANKING AND FINANCE INSTRUCTOR documented in this encounter Results * IMAGING/RADIOLOGY/XRAY RESULTS ORDER (08/09/2012 1:41 PM BANKING AND FINANCE INSTRUCTOR) Anatomical Region Laterality Modality Other Narrative 08/09/2012 1:41 PM BANKING AND FINANCE INSTRUCTOR Procedure Note Document, Scanned - 08/09/2012 1:41 PM CST Scanned Document IMAGING documented in this encounter Visit Diagnoses Diagnosis Injury of right elbow Injury, other and unspecified, elbow, forearm, and wrist Pain in joint, upper arm documented in this encounter Care Teams Auction Clerk Relationship Specialty Start Date End Date Sam Riojas license in 2017 PCP - General 02/05/11 09/23/16 documented as of this encounter
--- OUTSIDE RECORDS SUMMARY | 2024-08-23 23:22 | XMS_ITS | Encounter Summary ---
Author Organization [facility] Address [address] [place] [address] Care Team Providers Care Electric Locomotive Firer/Fireman Name Role Phone Sam Riojas Primary Care Provider Dimitry valdovinos Reason for Visit * Reason Comments Fracture Arm Encounter Details Date Type Department Care Team (Latest Contact Info) Description 01/25/2012 1:19 PM CDT - 01/25/2012 11:59 PM CDT Hospital Encounter [facility] Pediatrics - Orthopedics [address] [place] [address] Discharge Disposition: Home or Self Care Social [...] this encounter Discharge Instructions * Patient Instructions* Juana Larson MD - 01/25/2012 1:45 PM CDT Encounter Diagnoses Name Primary? Supracondylar fracture of humerus Return appointment: 3 weeks Call [phone], option 1, for return if your child has new symptoms or problems, or if you have concerns. Call [phone] for questions. Physicians orders: Keep cast clean and dry. Do not insert any objects into cast. Call for urgent appointment if cast gets wet or object is stuck in cast - [phone]. Medications prescribed: none Activity Restrictions: No sports or physical education class until further notice School/Work Excuse: Patient had an appointment 01/25/2012 documented in this encounter Medications at Time of Discharge Medication Sig Dispensed Refills Start Date End Date acetaminophen-codeine 120-12 MG/5ML solution Take 10 mL by mouth every 4 hours as needed. 03/07/2012 ibuprofen (IBU-DROPS) 40 MG/ML suspension Take 12.5 mL by mouth every 6 hours as needed. 10/26/2012 documented as of this encounter Progress Notes * Evette Wei - 01/25/2012 2:29 PM CDT Applied LAC left. Cast Care instructions given to patient and family. They acknowledged understanding. * Juana Larson MD - 01/25/2012 1:46 PM CDT PEDIATRIC ORTHOPAEDIC CLINIC NOTE NAME: Cammy Bullock DATE OF SERVICE: 01/25/2012 DATE: 2005 PCP: Sam Riojas MD Chief Complaint Patient presents with ??? Fracture Arm HISTORY: Cammy Bullock is a 6 y.o. 5 m.o. female who presents 3 day(s) status post a left elbow injury. Cammy Bullock was splinted at [place] and presents for further evaluation. The patient rates her pain as a 0 out of 10. The patient denies new onset of numbness in her upper extremities. PAST MEDICAL HISTORY: No past medical history on file. PAST SURGICAL HISTORY: Past Surgical History Procedure Date ??? Myringotomy with tube insertion MEDICATIONS: Current outpatient prescriptions:acetaminophen-codeine 120-12 MG/5ML solution, Take 10mL by mouth every 4 hours as needed., Disp: , Rfl: ; ibuprofen (IBU-DROPS) 40 MG/ML suspension, Take 12.5 mL by mouth every 6 hours as needed., Disp: , Rfl: ALLERGIES: Allergies as of 01/25/2012 - reviewed 01/25/2012 Allergen Reaction Noted ??? Augmentin 02/09/2011 IMMUNIZATIONS: Immunization status: up to date and documented, stated as current, but no records available. [...] and trunk control are appropriate. The patient walkswith a normal heel/toe gait pattern and no evidence of a limp. Examination of the upper extremitiesout of the splint shows the skin to be intact and in good condition. Elbow Exam: swelling present The distal neurovascular examination is intact in the upper extremities. RADIOGRAPHS: AP and lateral xrays of the left elbow show Type I supracondylar humerus fracture ASSESSMENT: left supracondylar humerus fracture PLAN: We recommend the patient go into a long arm cast today. The patient tolerated this well. Castcare and fracture precautions were reviewed today. The patient will stay out of PE/sports until further notice. The patient will follow up in 3 week(s) and get an AP and lateral xray of the left elbow out of the cast. They will call in the interim with questions or concerns. * Ira Jain RN - 01/25/2012 1:25 PM CDT Patient was jumping on trampoline with brother and fell on center black area falling on left arm. Taken to [place] for xrays and soft casting. Here for further treatment. documented in this encounter Miscellaneous Notes * Miscellaneous Scans - Document, Scanned - 05/16/2012 10:03 AM CDT documented in this encounter Plan of Treatment Not on file documented as of this encounter Visit Diagnoses Diagnosis Supracondylar fracture of humerus Closed fracture of supracondylar humerus documented in this encounter Care Teams Electric Locomotive Firer/Fireman Relationship Specialty Start Date End Date Sam Riojas license in 2016 PCP - General 02/05/11 09/23/16 documented as of this encounter
--- OUTSIDE RECORDS SUMMARY | 2024-08-23 23:22 | XMS_ITS | Encounter Summary ---
Author Organization [facility] Address [address] [place] [address] Care Team Providers Care Cotton Gin Yard Supervisor Name Role Phone TristanjerilynSam julien Primary Care Provider Dimitry valdovinos Reason for Visit * Reason Comments Injury Ankle Right ankle injury f ollow up. Encounter Details Date Type Department Care Team (Latest Contact Info) Description 11/23/2012 12:57 PM CDT - 11/23/2012 11:59 PM CDT Hospital Encounter [facility] Pediatrics - Orthopedics [address] [place] [address] Natalie Villafuerte MD [address] [place] [address] Discharge Disposition: Home or Self Care Social [...] this encounter Discharge Instructions * Patient Instructions* Leonora Pelaez PA - 11/23/2012 1:28 PM CDT ORTHOPAEDIC CLINIC DISCHARGE INSTRUCTIONS SHEET Follow Up: As needed. If still having pain or limited motion in 1 month, return to clinic. Limit strenuous activity--no running, jumping, playground equipment, physical education activities,sports activities for 2 weeks. School excuse: 11/23/2012 Tylenol or Motrin (over the counter medication) may be used per instructions. If you have any questions or concerns in the interim, or if you need to schedule surgery for your child, you may contact our orthopedic office at . If you need to make a clinic appointment, please call . documented in this encounter Progress Notes * Glenda Quinonez - 11/23/2012 3:27 PM CDT Removed SLWC right side. Skin slightly red on right heel. Skin dry and intact. * Leonora Pelaez PA - 11/23/2012 1:28 PM CDT PEDIATRIC ORTHOPAEDIC CLINIC NOTE NAME: Cammy Bullock DATE OF SERVICE: 11/23/2012 DATE: 2005 PCP: Sam Riojas Chief Complaint Patient presents with ??? Injury Ankle Right ankle injury follow up. HISTORY: Cammy Bullock is a 7 y.o. 3 m.o. female who presents 1 month(s) status post a right SH I distal fibula fracture. Cammy Bullock was treated with short leg walking cast and presents for follow up evaluation. The patient rates her pain as a 0 out of 10. The patient denies new onset of numbness in her lower extremities. MEDICATIONS: No current outpatient prescriptions on file. ALLERGIES: Allergies as of 11/23/2012 - reviewed 11/23/2012 Allergen Reaction Noted ??? Augmentin 02/09/2011 ??? Bee venom Swelling 10/26/2012 IMMUNIZATIONS: Immunization status: stated as current, but no records available. PHYSICAL EXAMINATION: General appearance: alert, cooperative, no distress. She has good head control. No rashes or abnormal dyspigmentation Extremities: The uninjured left lower extremity was examined and demonstrated normal skin, normal range of motion and alignment of all joint, normal motor, sensory and vascular examination, and was without pain. It was used for comparison when examining the injured right lower extremity. General appearance: no acute distress The examination was performed out of splint/cast Skin: bruising present throughout anterior ankle Swelling: none Tenderness: mild, located over bruising at anterior ankle. Deformity: No, ROM: slightly limited, consistent with immobilization Neurological Exam: normal Vascular Exam: normal RADIOGRAPHS: None today. ASSESSMENT: right SH I distal fibula fracture. PLAN: We recommend the patient discontinue her cast today. Fracture precautions were reviewed today. The patient will stay out of PE/sports for 2 additional weeks. she may then gradually resume all activities as tolerated. If she has any difficulties returning to activities, or any pain/problems in3-4 weeks, we recommend they return to clinic. If she is doing well at that point, they do not needto follow up for this injury. The family was understanding of this plan and will follow up PRN. documented in this encounter Miscellaneous Notes * Miscellaneous Scans - Document, Scanned - 12/12/2012 2:14 PM CDT documented in this encounter Plan of Treatment Not on file documented as of this encounter Visit Diagnoses Diagnosis Closed fracture of unspecified part of fibula documented in this encounter Care Teams Cotton Gin Yard Supervisor Relationship Specialty Start Date End Date Sam Riojas license in 2016 PCP - General 02/05/11 09/23/16 documented as of this encounter
--- OUTSIDE RECORDS SUMMARY | 2024-08-23 23:22 | XMS_ITS | Encounter Summary ---
Author Organization [facility] Address [address] [place] [address] Care Team Providers Care Java Lead Name Role Phone Sam Riojas Primary Care Provider Dimitry valdovinos Reason for Visit * Reason Comments Follow-up right ankle injury Encounter Details Date Type Department Care Team (Latest Contact Info) Description 02/23/2011 10:30 AM CDT - 02/23/2011 11:59 PM CDT Hospital Encounter [facility] Pediatrics - Orthopedics [address] [address] Discharge Disposition: Home or Self Care Social History Tobacco Use Types Packs/Day Years Used Date Smoking Tobacco: Never Assessed Sex and Gender Information Value Date Recorded Sex Assigned at Not on file Gender Identity Not on file Sexual Orientation Not on file documented as of this encounter Discharge Instructions * Patient Instructions* Mark Peck PA-C - 02/23/2011 10:56 AM CDT ORTHOPAEDIC CLINIC DISCHARGE INSTRUCTIONS SHEET Follow Up: Please make a return appointment for 3 week(s) Wear the air cast for 3 weeks. May fully weight bear on the right leg as tolerated. Limit strenuous activity--no running, jumping, playground equipment, physical education activities,sports activities until released. School excuse: 02/23/2011 Tylenol and Ibuprofen (over the counter medication) [...] Sig Dispensed Refills Start Date End Date Albuterol Sulfate (PROAIR HFA IN) Inhale by mouth as needed. 11/02/2011 documented as of this encounter Progress Notes * Mark Peck PA-C - 02/23/2011 10:59 AM CDT 02/23/2011 HISTORY: Cammy Bullock is a 5 y.o. 6 m.o. female who presents 3 week(s) status post a right ankle injury. Cammy Bullock was treated with a short leg walking cast, and is back for follow up 1 week early. She reportedly was walking/running 2 days ago and fell in a hole and twisted her right leg. She had difficulty weight bearing after that and was seen in the [facility] ER for xrays. No new injuries were seen, and she was instructed to follow up with us today. She presents for followup evaluation. The patient rates her pain as a 0 out of 10. The patient denies new onset of numbness in her lower extremities. PHYSICAL EXAM: Patient is well-developed, well-nourished and in no acute distress. Examination of the lower extremities out of the cast shows the skin intact. There is a small, dime sized skin sore noted at the heel. there is no full thickness skin breakdown noted. There is minimal residual edema at the lateral aspect of the ankle. There is no ecchymosis or angular malalignment noted. She is tender to palpation at the lateral malleolus and ATFL. ROM of the right ankle is reduced when compared to the other side. The distal neurovascular examination is intact in the lower extremities. RADIOGRAPHS: AP, lateral, and mortise xrays of the right ankle from 02/21/11 show no obvious fractures. ASSESSMENT: right ankle injury PLAN: We recommend the patient come out of her cast today. Due to the sore on her heel, we did not place her back into a cast. She was placed into an air cast to protect the ankle, but will allow forher sore to heal. Fracture precautions were reviewed today. The patient will stay out of PE/sports until further notice. The patient will follow up in 3 week(s) for repeat evaluation. They will call in the interim with questions or concerns. * Evette Wei - 02/23/2011 10:35 AM CDT Pt here early because she fell on Tuesday and is complaining of pain in her ankle again. Pt had xrays done on Tuesday. Removed SLC right. documented in this encounter Miscellaneous Notes * Miscellaneous Scans - Document, Scanned - 05/19/2011 5:01 PM CDT documented in this encounter Plan of Treatment Not on file documented as of this encounter Visit Diagnoses Diagnosis Injury of right ankle Injury, other and unspecified, knee, leg, ankle, and foot documented in this encounter Care Teams Java Lead Relationship Specialty Start Date End Date Sma Riojas license in 2017 PCP - General 02/05/11 09/23/16 documented as of this encounter
--- OUTSIDE RECORDS SUMMARY | 2024-08-23 23:22 | XMS_ITS | Encounter Summary ---
Author Organization [facility] Address [address] [place] [address] Care Team Providers Care Viscose Cellar Charge Hand Name Role Phone Sam Riojas Primary Care Provider Dimitry valdovinos Reason for Visit * Reason Comments Evaluation right forearm fx Encounter Details Date Type Department Care Team (Latest Contact Info) Description 02/05/2014 1:00 PM CDT - 02/05/2014 11:59 PM CDT Hospital Encounter [facility] Pediatrics - Orthopedics [address] [place] [address] Juana Larson MD Discharge Disposition: Home or [...] * Patient Instructions* Juana Larson MD - 02/05/2014 1:57 PM CDT Encounter Diagnoses Name Primary? Radius fracture, right, closed, initial encounter Yes Return appointment: 3 weeks Call [phone], option 1, for return if your child has new symptoms or problems, or if you have concerns. Call [phone] for questions. Physicians orders: Keep cast clean and dry. Do not insert any objects into cast. Call for urgent appointment if cast gets wet or object is stuck in cast. Medications prescribed: None Activity Restrictions: No sports or physical education class until further notice School/Work Excuse: Patient had an appointment 02/05/2014 documented in this encounter Medications at Time of Discharge Medication Sig Dispensed Refills Start Date End Date IBUPROFEN PO Take by mouth as needed. documented as of this encounter Progress Notes * Evette Ram - 02/05/2014 2:02 PM CDT Applied LAC right. Cast Care instructions given to patient and family. They acknowledged understanding. * Juana Lasron MD - 02/05/2014 1:58 PM CDT PEDIATRIC ORTHOPAEDIC CLINIC NOTE NAME: Cammy Bullock DATE OF SERVICE: 02/05/2014 DATE: 2005 PCP: Sam Riojas HISTORY: Cammy Bullock is a 8 y.o. 5 m.o. female who presents 3 day(s) status post a right forearm injury. Cammy Bullock was splinted at [place] and presents for further evaluation. The patient rates her pain as a 2 out of 10. The patient denies new onset of numbness in her upper extremities. PAST MEDICAL HISTORY: Asthma PAST SURGICAL HISTORY: Past Surgical History Procedure Date ??? Myringotomy with tube insertion ??? Adenoidectomy MEDICATIONS: Current outpatient prescriptions:IBUPROFEN PO, Take by mouth as needed., Disp: , Rfl: ALLERGIES: Allergies as of 02/05/2014 - reviewed 02/05/2014 Allergen Reaction Noted ??? Augmentin 02/09/2011 ??? Bee venom Swelling 10/26/2012 IMMUNIZATIONS: Immunization status: stated as current, but no records available. SOCIAL HISTORY: Patient lives with her family. she does attend school. FAMILY HISTORY: Negative for any genetic conditions affecting children. ROS: A 12 point review of systems was obtained today and is positive for what is stated above. PHYSICAL EXAMINATION: General appearance: alert, cooperative, no [...] right upper extremity. General appearance: no acute distress The examination was performed out of splint/cast Skin: normal Swelling: minimal Tenderness: mild, located radius. Deformity: No, located at forearm ROM: limited by pain Strength: normal Gait: normal Neurological Exam: normal Vascular Exam: normal RADIOGRAPHS: AP and lateral xrays of the right forearm were taken and assessed today. -Radiographic Assessment: They show nondisplaced proximal third radial shaft fracture. ASSESSMENT: right radius fracture PLAN: We recommend the patient go into a long arm cast today. The patient tolerated this well. Castcare and fracture precautions were reviewed today. The patient will stay out of PE/sports until further notice. The patient will follow up in 3 week(s) and get an AP and lateral xray of the right forearm out of the cast. They will call in the interim with questions or concerns. * Ira Jain RN - 02/05/2014 1:27 PM CDT Patient was doing cartwheel on 02/02/14. She fell injuring her right forearm. She went to [place] ER for xrays and soft cast. She is here for further evaluation and treatment of injury. documented in this encounter Miscellaneous Notes * Miscellaneous Scans - Document, Scanned - 02/08/2014 6:38 PM CDT documented in this encounter Plan of Treatment Not on file documented as of this encounter Visit Diagnoses Diagnosis Radius fracture, right, closed, initial encounter- Primary documented in this encounter Care Teams Viscose Cellar Charge Hand Relationship Specialty Start Date End Date Sam Riojas license in 2016 PCP - General 02/05/11 09/23/16 documented as of this encounter
--- OUTSIDE RECORDS SUMMARY | 2024-08-23 23:22 | XMS_ITS | Encounter Summary ---
Author Organization [facility] Address [address] [place] [address] Care Team Providers Care Chicken Picker Name Role Phone Sam Riojas Primary Care Provider Dimitry valdovinos Reason for Visit * Reason Comments Injury Elbow left elbow fracture Encounter Details Date Type Department Care Team (Latest Contact Info) Description 02/10/2012 9:45 AM CDT - 02/10/2012 11:59 PM CDT Hospital Encounter [facility] Pediatrics - Orthopedics [address] [place] [address] Leonora Pelaez PA [address] [place] [address] Discharge Disposition: Home or Self Care Social [...] * Patient Instructions* Leonora Pelaez PA - 02/10/2012 11:35 AM CDT ORTHOPAEDIC CLINIC DISCHARGE INSTRUCTIONS SHEET Follow Up: Please make a return appointment for 3-4 week(s) Limit strenuous activity--no playground equipment or sports activities until released. Tylenol or Motrin (over the counter medication) [...] as of this encounter Progress Notes * Veronica Fernandez - 02/10/2012 11:51 AM CDT Removed LAC left side. Skin dry and intact. * Leonora Pelaez PA - 02/10/2012 11:30 AM CDT PEDIATRIC ORTHOPAEDIC CLINIC NOTE NAME: Cammy Bullock DATE OF SERVICE: 02/10/2012 DATE: 2005 PCP: Sam Riojas MD Chief Complaint Patient presents with ??? Injury Elbow left elbow fracture HISTORY: Cammy Bullock is a 6 y.o. 5 m.o. female who presents 3 week(s) status post a left type I supracondylar humerus fracture. Cammy Bullock was treated with long arm casting and presents for follow up evaluation. The patient rates her pain as a 2 out of 10. The patient denies new onset ofnumbness in her upper extremities. PHYSICAL EXAM: Patient is well-developed, well-nourished and in no acute distress. Examination of the upper extremities out of the cast shows the skin intact and without irritation secondary to the casting. There is no residual edema, ecchymosis, or angular malalignment noted. ROM of the left upper extremity is reduced when compared to the other side. The distal neurovascular examination is intact in the upper extremities. RADIOGRAPHS: AP and lateral xrays of the left elbow show healing supracondylar humerus fracture in good alignment. ASSESSMENT: left type I supracondylar humerus fracture. PLAN: We recommend the patient discontinue her cast today. Fracture precautions were reviewed today. The patient will stay out of PE/sports until further notice. The patient will follow up in 3 week(s) and get an AP and lateral xray of the left elbow and have a range of motion check. They will callin the interim with questions or concerns.. documented in this encounter Procedure Notes * Document, Scanned - 03/02/2012 9:21 AM CDTAssociated Order(s): IMAGING/RADIOLOGY/XRAY RESULTS ORDER documented in this encounter Miscellaneous Notes * Miscellaneous Scans - Document, Scanned - 02/20/2012 10:29 AM CDT documented in this encounter Plan of Treatment Not on file documented as of this encounter Procedures Procedure Name Priority Date/Time Associated Diagnosis Comments IMAGING/RADIOLOGY/X RAY RESULTS ORDER 03/02/2012 9:21 AM CDT documented in this encounter Results * IMAGING/RADIOLOGY/XRAY RESULTS ORDER (03/02/2012 9:21 AM CDT) Anatomical Region Laterality Modality Other Narrative Transcriptions Document, Scanned - 03/02/2012 9:21 AM CDT Scanned Document IMAGING documented in this encounter Visit Diagnoses Diagnosis Closed fracture of supracondylar humerus Fracture, cause unspecified(E887) Fracture, cause unspecified documented in this encounter Care Teams Chicken Picker Relationship Specialty Start Date End Date Sam Riojas license in 2017 PCP - General 02/05/11 09/23/16 documented as of this encounter
--- OUTSIDE RECORDS SUMMARY | 2024-08-23 23:22 | XMS_ITS | Encounter Summary ---
Author Organization [facility] Address [address] [place] [address] Care Team Providers Care Credit And Loan Collections Supervisor Name Role Phone Sam Riojas Primary Care Provider Dimitry valdovinos Reason for Visit * Reason Comments Follow-up right ankle injury Encounter Details Date Type Department Care Team (Latest Contact Info) Description 03/16/2011 11:00 AM CDT - 03/16/2011 11:59 PM CDT Hospital Encounter [facility] Pediatrics - Orthopedics [address] [place], [place] [id number] Discharge Disposition: Home or Self Care Social History Tobacco Use Types Packs/Day Years Used Date Smoking Tobacco: Never Assessed Sex and Gender Information Value Date Recorded Sex Assigned at Not on file Gender Identity Not on file Sexual Orientation Not on file documented as of this encounter Discharge Instructions * Patient Instructions* Mark Peck PA-C - 03/16/2011 11:24 AM CDT ORTHOPAEDIC CLINIC DISCHARGE INSTRUCTIONS SHEET Follow Up: As needed only May gradually resume PE, sports, and all activities as tolerated. School excuse: 03/16/2011 Tylenol and Ibuprofen (over the counter medication) [...] Progress Notes * Mark Peck PA-C - 03/16/2011 11:24 AM CDT 03/16/2011 HISTORY: Cammy Bullock is a 5 y.o. 6 m.o. female who presents 6 week(s) status post a right ankle injury. Cammy Bullock was treated with a short leg walking cast for 3 weeks, and returned earlyafter she fell and had increased pain in her right ankle. Her cast was removed at that time, and she was placed in an air cast for protection vs another cast, due to a sore that had developed on her heel. She is here today for follow up evaluation. She states that she has been doing well over the past 3 weeks, and that the sore on her heel has healed. Mom states that the ankle still occasionally swells. The patient rates her pain as a 0 out of 10. The patient denies new onset of numbness in herlower extremities. PHYSICAL EXAM: Patient is well-developed, well-nourished and in no acute distress. Examination of the lower extremities out of the air cast shows the skin intact. The sore at the heel is completely healed at this time. There is no residual edema at the lateral aspect of the ankle. There is no ecchymosis or angular malalignment noted. She is nontender to palpation at the lateral malleolus and ATFL. ROM and strength of the right ankle is normal when compared to the other side. She ambulates with a normal heel to toe gait, without a limp. She can walk up on her toes and heels without pain or limitations. The distal neurovascular examination is intact in the lower extremities. RADIOGRAPHS: None today ASSESSMENT: right ankle injury PLAN: We recommend the patient come out of her air cast today. she may now gradually resume all activities as tolerated. If [...] * Miscellaneous Scans - Document, Scanned - 06/08/2011 8:57 AM CDT documented in this encounter Plan of Treatment Not on file documented as of this encounter Visit Diagnoses Diagnosis Injury of right ankle Injury, other and unspecified, knee, leg, ankle, and foot documented in this encounter Care Teams Credit And Loan Collections Supervisor Relationship Specialty Start Date End Date Sam Riojas license in 2016 PCP - General 02/05/11 09/23/16 documented as of this encounter
--- OUTSIDE RECORDS SUMMARY | 2024-08-23 23:22 | XMS_ITS | Encounter Summary ---
Author Organization [facility] Address [address] [place] [address] Care Team Providers Care Team Assistant Name Role Phone Sam Riojas Primary Care Provider Dimitry valdovinos Encounter Details Date Type Department Care Team (Latest Contact Info) Description 05/14/2014 3:08 PM CDT - 05/14/2014 11:59 PM CDT Hospital Encounter [facility] Pediatrics - Radiology [address] [place] [address] Fawn Pascal MD [address] [place] [address] Discharge Disposition: Home or Self Care Social [...] needed. 01/17/2018 documented as of this encounter Plan of Treatment Not on file documented as of this encounter Procedures Procedure Name Priority Date/Time Associated Diagnosis Comments XR FOREARM RIGHT 2VW OR MORE Routine 05/14/2014 3:49 PM CDT Fracture of right radius, closed, with routine healing, subsequent encounter documented in this encounter Results * XR FOREARM 2 VW RIGHT (05/14/2014 3:49 PM CDT) Anatomical Region Laterality Modality Upper Extremity Radiographic Heidi ging 05/14/2014 3:51 PM CDT Impressions 05/14/2014 3:56 PM CDT Casted, transverse fracture of the right radial diaphysis with mild dorsal angulation of the distal fracture fragment. Narrative 05/14/2014 3:56 PM CDT Juan Manuel Bueno MD ? 05/14/2014 ??5:14 PM [facility] Procedure Report NAME: ??Cammy Bullock : ??2005 DATE OF OPERATION: ??05/14/2014 ATTENDING SURGEON: ??JuanM anuel Bueno MD PCP: Sam Riojas Preprocedural Diagnosis: Closed right radius fracture. ICD-9 CODE 813.21 Postprocedural Diagnosis: same Procedure: 1. Closed reduction right radius fracture. CPT CODE 42373 2. Application long arm cast Surgeon: Juan Manuel Bueno MD Assistants: Fawn Pascal MD & Abdiaziz Galeas MD Anesthesia: sedation Radiology: Low image intensifier was used for less than 20 seconds to assess adequacy of reduction. Indications: Cammy Bullock is a 8 y.o. female who sustained the above injury after falling onto the right upper extremity approximately 5 days ago. ??Films show apex volar angulation. ??In order to restore and maintain alignment it is elected to perform the above procedure. Procedure: Cammy Bullock was taken to the procedure room and placed on the table in the supine position. A time out was performed prior to initiating sedation to confirm reduction site and procedure. After general sedationhad been achieved, her cast was completely removed. ??The fracture site was then visualized using low image intensifier assistance. ??A closed manual reduction was performed. Once acceptable alignment was achieved, the patient was placed into a short arm cast. ??The fracture was re-imaged and alignment was maintained. ??AP and lateral films of the forearm were visualized. ??The cast was then extended to a long arm. ??Once the cast had hardened, Cammy Bullock recovered without event from sedation. Post-reduction films are available and show improved alignment and reduction of the radius fracture. Angulation has also been decreased. Disposition: The patient will be discharged home when stable. ??He will return to the office in 1 weeks and an AP and lateral film of the right forearm will be obtained with her current cast. She is to be non weight bearing on the right upper extremity, but she may be activity as tolerated. She will be provided with lortab elixir upon discharge. ATTENDING ATTESTATION STATEMENT I was present for the jackson portions of the procedure. Fawn Pascal MD DIAGNOSTIC IMAGING ORDERABLES documented in this encounter Visit Diagnoses Diagnosis Closed fracture of shaft of radius (alone), right, initial encounter- Primary documented in this encounter Care Teams Team Assistant Relationship Specialty Start Date End Date Sam Riojas license in 2016 PCP - General 02/05/11 09/23/16 documented as of this encounter
--- OUTSIDE RECORDS SUMMARY | 2024-08-23 23:22 | XMS_ITS | Encounter Summary ---
Author Organization [facility] Address [address] [place] [address] Care Team Providers Care Nonfarm Animal Caretaker Name Role Phone Sam Riojas Primary Care Provider Dimitry valdovinos Reason for Visit * Reason Comments Follow-up oop then xray Encounter Details Date Type Department Care Team (Latest Contact Info) Description 03/07/2014 1:00 PM CDT - 03/07/2014 11:59 PM CDT Hospital Encounter [facility] Pediatrics - Orthopedics [facility] [facility] [address] [place] [address] Natalie Villafuerte MD [address] [place] [address] Discharge Disposition: Home or Self Care Social [...] Sign Reading Time Taken Comments Blood Pressure 90/60 03/07/2014 1:27 PM CDT Pulse 80 03/07/2014 1:27 PM CDT Temperature 36.3 ??C (97.4 ??F) 03/07/2014 1:27 PM CD T Respiratory Rate 20 03/07/2014 1:27 PM CDT Oxygen Saturation - - Inhaled Oxygen Concentration - - Weight 42.6 kg (94 lb) 03/07/2014 1:27 PM CDT Height 134.5 cm (4' 4.95 ) 03/07/2014 1:27 PM CD T Body Mass Index 23.57 03/07/2014 1:27 PM CDT Body Mass Index Percentile 96.08% 03/07/2014 1:2 7 PM CDT Growth Chart: [facility] (Girls, 2- 20 Years) documented in this encounter Discharge Instructions * Patient Instructions* Leonora Pelaez PA - 03/07/2014 2:51 PM CDT ORTHOPAEDIC CLINIC DISCHARGE INSTRUCTIONS SHEET Follow Up: Please make a return appointment for 1 month(s) Limit strenuous activity--no running, jumping, playground equipment, physical education activities,sports activities until released. Tylenol or Motrin (over the counter medication) may be used per instructions. Splint - may remove for washing/bathing purposes and swimming. If you have any questions or concerns [...] as of this encounter Progress Notes * Glenda Quinonez - 03/07/2014 4:49 PM CDT Removed LAC right side. Skin dry and intact * Leonora Pelaez PA - 03/07/2014 2:50 PM CDT PEDIATRIC ORTHOPAEDIC CLINIC NOTE NAME: Cammy Bullock DATE OF SERVICE: 03/07/2014 DATE: 2005 PCP: Sam Riojas HISTORY: Cammy Bullock is a 8 y.o. 6 m.o. female who presents 1 month(s) status post a right radius fracture. Cammy Bullock was treated with long arm casting and presents for follow up evaluation. The patient rates her pain as a 0 out of 10. The patient denies new onset of numbness in her upper extremities. MEDICATIONS: Current outpatient prescriptions:IBUPROFEN PO, Take by mouth as needed., Disp: , Rfl: , ALLERGIES: Allergies as of 03/07/2014 - reviewed 03/07/2014 Allergen Reaction Noted ??? Augmentin 02/09/2011 ??? [...] of splint/cast Skin: normal Swelling: none Tenderness: none. Deformity: No ROM: limited, consistent with cast immobilization Strength: normal Gait: normal Neurological Exam: normal Vascular Exam: normal RADIOGRAPHS: AP and lateral xrays of the right forearm were taken and assessed today. -Radiographic Assessment: They show proximal radial shaft fracture healing in good alignment. ASSESSMENT: 1. Closed fracture of right radius, with routine healing, subsequent encounter PLAN: We recommend the patient discontinue her and go into a velcro wrist/forearm splint today. Shemay remove this for washing/bathing purposes. Fracture precautions were reviewed today. The patientwill stay out of PE/sports until further notice. The patient will follow up in 1 month(s) for repeat clinical examination/range of motion check. They will call in the interim with questions or concerns. documented in this encounter Plan of Treatment Not on file documented as of this encounter Visit Diagnoses Diagnosis Closed fracture of right radius, with routine healing, subsequent encounter- Primary Closed fracture of right radius, initial encounter documented in this encounter Care Teams Nonfarm Animal Caretaker Relationship Specialty Start Date End Date Sam Riojas license in 2016 PCP - General 02/05/11 09/23/16 documented as of this encounter
--- OUTSIDE RECORDS SUMMARY | 2024-08-23 23:22 | XMS_ITS | Encounter Summary ---
Author Organization [facility] Address [address] [place] [address] Care Team Providers Care Supervisor Fiber Locking Name Role Phone Sam Riojas Primary Care Provider Dimitry valdovinos Reason for Visit * Reason Comments Injury Ankle Right ankle Encounter Details Date Type Department Care Team (Latest Contact Info) Description 10/26/2012 9:15 AM TERMINAL CLERK - 10/26/2012 11:59 PM TERMINAL CLERK Hospital Encounter [facility] Pediatrics - Orthopedics [address] [place] [address] Leonora Pelaez PA [address] [place] [address] Discharge Disposition: Home or Self Care Social [...] * Patient Instructions* Leonora Pelaez PA - 10/26/2012 9:57 AM TERMINAL CLERK ORTHOPAEDIC CLINIC DISCHARGE INSTRUCTIONS SHEET Follow Up: Please make a return appointment for 4 week(s) Limit strenuous activity--no running, jumping, playground equipment, physical education activities,sports activities until released. May weight bear as tolerated on cast. School excuse: 10/26/2012 Tylenol or Motrin (over the counter medication) may be used per instructions - please allow her to take at school for pain. Cast Care: Keep cast clean and dry. [...] make a clinic appointment, please call . INAL CLERK documented in this encounter Medications at Time of Discharge Medication Sig Dispensed Refills Start Date End Date Ibuprofen (IBU-200 PO) Take 100 mg by mouth. 11/23/2012 documented as of this encounter Progress Notes * Glenda Quinonez - 10/26/2012 11:37 AM CST Applied [facility] Right side. Cast Care instructions given to patient and family. They acknowledged understanding. INAL CLERK * Leonora Pelaez PA - 10/26/2012 9:48 AM CST PEDIATRIC ORTHOPAEDIC CLINIC NOTE NAME: Cammy Bullock DATE OF SERVICE: 10/26/2012 DATE: 2005 PCP: Sam Riojas Chief Complaint Patient presents with ??? Injury Ankle Right ankle HISTORY: Cammy Bullock is a 7 y.o. 2 m.o. female who presents 5 day(s) status post a right ankleinjury. Cammy Bullock was splinted at [facility] and presents for further evaluation. The patient rates her pain as a 10 out of 10. The patient denies new onset of numbness in her lower extremities. PAST MEDICAL/SURGICAL HISTORY: Unchanged from prior visits here. MEDICATIONS: Current outpatient prescriptions:Ibuprofen (IBU-200 PO), Take 100 mg by mouth., Disp: , Rfl: ALLERGIES: Allergies as of 10/26/2012 - reviewed 10/26/2012 Allergen Reaction Noted ??? Augmentin 02/09/2011 ??? Bee venom Swelling 10/26/2012 IMMUNIZATIONS: Immunization status: stated as current, but no records available. ROS: A 12 point review of systems [...] performed out of splint/cast Skin: normal Swelling: mild, at lateral malleolus Tenderness: moderate, located over distal fibula, and somewhat throughout anterior tibia as well. Deformity: No ROM: limited by pain Strength: limited by pain Gait: antalgic Neurological Exam: normal Vascular Exam: normal RADIOGRAPHS: AP, lateral, and mortise X-rays of the right ankle show no acute osseous abnormalities. ASSESSMENT: right ankle pain with possible SH I distal fibula fracture. PLAN: We recommend the patient go into a short leg walking cast today. The patient tolerated this well. Cast care and fracture precautions were reviewed today. The patient will stay out of PE/sports until further notice. Patient's weight bearing status will be as tolerated. The patient will follow up in 1 month(s) for cast removal and repeat clinical examination. They will call in the interim with questions or concerns. INAL CLERK * Glenda Quinonez - 10/26/2012 9:23 AM CST Was playing with father and got on his back and fell over hitting right ankle on bed. 10/21/2012 went to [facility] X rays taken and was put in air cast. Was rubbing so removed 10/25/2012. Pt was using crutches that were at home. INAL CLERK documented in this encounter Miscellaneous Notes * Miscellaneous Scans - Document, Scanned - 11/23/2012 12:33 PM CDT documented in this encounter Plan of Treatment Not on file documented as of this encounter Visit Diagnoses Diagnosis Pain in joint, ankle and foot documented in this encounter Care Teams Supervisor Fiber Locking Relationship Specialty Start Date End Date Sam Riojas license in 2016 PCP - General 02/05/11 09/23/16 documented as of this encounter
--- OUTSIDE RECORDS SUMMARY | 2024-08-23 23:22 | XMS_ITS | Encounter Summary ---
Author Organization [facility] Address [address] [place] [address] Care Team Providers Care Distribution Systems Serviceperson Name Role Phone Sam Riojas Primary Care Provider Dimitry valdovinos Reason for Visit * Reason Comments Injury Foot right foot injury Encounter Details Date Type Department Care Team (Latest Contact Info) Description 05/22/2013 1:00 PM CDT - 05/22/2013 11:59 PM CDT Hospital Encounter [facility] Pediatrics - Orthopedics [address] [place] [address] Juana Larson MD Discharge Disposition: Home or [...] * Patient Instructions* Juana Larson MD - 05/22/2013 1:28 PM CDT Encounter Diagnoses Name Primary? Contusion of foot, right Yes Return appointment: As needed Call [phone], option 1, for return if your child has new symptoms or problems, or if you have concerns. Call [phone] for questions. Physicians orders: Wear hard soled shoe until pain improves. Medications prescribed: none Activity Restrictions: No sports or physical education class for 3 weeks. School/Work Excuse: Patient had an appointment 05/22/2013 documented in this encounter Medications at Time of Discharge Medication Sig Dispensed Refills Start Date End Date IBUPROFEN PO Take by mouth as needed. documented as of this encounter Progress Notes * Juana Larson MD - 05/22/2013 4:10 PM CDT NAME: Cammy Bullock DATE: 05/22/2013 : 2005 HISTORY: Cammy Bullock is a 7 y.o. female with a history of right foot who presents for evaluation for this. She is accompanied today by her mother who reports that a 45 pound weight fell on Elos foot about 4 days ago. She localizes pain to the dorsum of her foot. She is on crutches and describes her pain as 10 out of 10. MEDS: Ibuprofen ALLERGIES: Allergies Allergen Reactions ??? Augmentin ??? Bee Venom Swelling Bee stings IMMUNIZATIONS: Up to date ROS: A 12 point review of systems was performed and is negative except for what is stated above in the history. PHYSICAL EXAM: Cammy Bullock is a well developed, well nourished female in no acute distress whois alert and cooperative with my examination. She does have good head and trunk control. She does ambulate with crutches. Upper extremity exam shows no apparent abnormalities. Lower extremity exam shows ecchymosis and minimal swelling along the dorsum of the right foot when compared to the left. She is tender there. There is deformity of the right foot when compared to the left. RADIOGRAPHIC ASSESSMENT: I assessed radiographs of the right foot in clinic and found no fractures or other abnormalities IMPRESSION: Right foot contusion, pain PLAN: Recommend that she wear a hard soled shoe until pain improves. Discontinue crutches when painimproves. No sports or physical education class for 3 weeks. Follow up as needed. They will call inthe interim for questions or concerns. * Evette Wei - 05/22/2013 1:02 PM CDT Pt here for right foot injury. Pt states that she dropped a 45lb weight on her foot. [facility]. She was given crutches and referred by PCP for f/u. Pt states that her pain is a 10 out of 10. Pt does not seem to be in any distress and was educated on pain levels. This happened 05/18/13. documented in this encounter Miscellaneous Notes * Miscellaneous Scans - Document, Scanned - 05/28/2013 9:54 PM CDT documented in this encounter Plan of Treatment Not on file documented as of this encounter Visit Diagnoses Diagnosis Contusion of foot, right- Primary Contusion of foot Pain in limb documented in this encounter Care Teams Distribution Systems Serviceperson Relationship Specialty Start Date End Date Sam Riojas license in 2016 PCP - General 02/05/11 09/23/16 documented as of this encounter
--- OUTSIDE RECORDS SUMMARY | 2024-08-23 23:22 | XMS_ITS | Encounter Summary ---
Author Organization [facility] Address [address] [address] Care Team Providers Care Shape Carver Name Role Phone Sam Riojas Primary Care Provider Dimitry valdovinos Encounter Details Date Type Department Care Team (Latest Contact Info) Description 07/01/2011 1:31 PM CDT - 07/01/2011 11:59 PM CDT Hospital Encounter [facility] Pediatrics - Orthopedics [address] [place] [id number] Desi Argueta MD RETIRED Orthopedics Discharge Disposition: Home or Self Care Social History Tobacco Use Types Packs/Day Years Used Date Smoking Tobacco: Never Assessed Sex and Gender Information Value Date Recorded Sex Assigned at Not on file Gender Identity Not on file Sexual Orientation Not on file documented as of this encounter Medications at Time of Discharge Medication Sig Dispensed Refills Start Date End Date acetaminophen, disintegrating, (TYLENOL CHILDRENS MELTAWAYS) 80 MG tablet Take 160 mg by mouth every 4 hours as needed. 11/02/2011 Albuterol Sulfate (PROAIR HFA IN) Inhale by mouth as needed. 11/02/2011 documented as of this encounter Plan of Treatment Not on file documented as of this encounter Visit Diagnoses Not on filedocumented in this encounter Care Teams Shape Carver Relationship Specialty Start Date End Date Sam Riojas license in 2016 PCP - General 02/05/11 09/23/16 documented as of this encounter
--- OUTSIDE RECORDS SUMMARY | 2024-08-23 23:22 | XMS_ITS | Encounter Summary ---
Author Organization [facility] Address [address] [place] [address] Care Team Providers Care Design Manager Name Role Phone Sam Riojas Primary Care Provider Dimitry valdovinos Reason for Visit * Reason Comments Follow-up right ankle injury Encounter Details Date Type Department Care Team (Latest Contact Info) Description 08/10/2011 12:58 PM LIBRARY SCIENCE PROFESSOR - 08/10/2011 11:59 PM LIBRARY SCIENCE PROFESSOR Hospital Encounter [facility] Pediatrics - Orthopedics [address] [address] Discharge Disposition: Home or Self Care Social History Tobacco Use Types Packs/Day Years Used Date Smoking Tobacco: Never Assessed Sex and Gender Information Value Date Recorded Sex Assigned at Not on file Gender Identity Not on file Sexual Orientation Not on file documented as of this encounter Discharge Instructions * Patient Instructions* Mark Peck PA-C - 08/10/2011 1:27 PM LIBRARY SCIENCE PROFESSOR ORTHOPAEDIC CLINIC DISCHARGE INSTRUCTIONS SHEET Follow Up: Orthopedics--As needed only Make appointment with Rheumatology. May resume PE, sports, and all activities as tolerated. School excuse: 08/10/2011 Tylenol and Ibuprofen (over the counter medication) may be used per instructions. If you have any questions or concerns in the interim, or if you need to schedule surgery for your child, you may contact our orthopedic office at . If you need to make a clinic appointment, please call . ARY SCIENCE PROFESSOR documented in this encounter Medications at Time of Discharge Medication Sig Dispensed Refills Start Date End Date acetaminophen, disintegrating, (TYLENOL CHILDRENS MELTAWAYS) 80 MG tablet Take 160 mg by mouth every 4 hours as needed. 11/02/2011 Albuterol Sulfate (PROAIR HFA IN) Inhale by mouth as needed. 11/02/2011 documented as of this encounter Progress Notes * Mark Peck PA-C - 08/10/2011 1:43 PM CST 08/10/2011 HISTORY: Cammy Bullock is a 5 y.o. 11 m.o. female who presents for follow up evaluation for right ankle pain. She recently was treated for a possible SH I distal fibula fracture. She came out of her cast/splint 3 weeks ago. We also recommended PT and she reportedly went to one session and felt like this helped some. They returned early last week because Cammy was continuing to complain of a significant amount of pain. We recommended an MRI to further evaluate the right ankle. They are heretoday to discuss the results. Mom states that there has been no change in her pain over the past week. Mom has been carrying her around as Cammy is refusing to walk. PHYSICAL EXAM: Patient is well-developed, well-nourished and in no acute distress. Examination of the lower extremities shows no residual edema laterally. She is passively brought through full ROM with the right ankle without hesitation. She is minimally tender to palpation at the lateral malleolusand ATFL. She is hesitant with any weight bearing in the office today and mom is carrying her. The distal neurovascular examination is intact in the lower extremities. RADIOGRAPHS: MRI from 08/08/11 was reviewed today and is normal. She has evidence of a healed distalfibula avulsion fracture. ASSESSMENT: right ankle pain PLAN: The family was reassured that her MRI is normal. We recommend that she follow up with Rheumatology to see if they can further evaluate her persistent ankle pain. We will see her back in our clinic as needed. Mom was understanding of this plan and call in the interim with questions or concerns, or if they decide to resume Physical Therapy. ARY SCIENCE PROFESSOR documented in this encounter Procedure Notes * Document, Scanned - 09/07/2011 11:14 AM CSTAssociated Order(s): IMAGING/RADIOLOGY/XRAY RESULTS ORDER ARY SCIENCE PROFESSOR documented in this encounter Miscellaneous Notes * Miscellaneous Scans - Document, Scanned - 09/08/2011 5:22 PM CST ARY SCIENCE PROFESSOR documented in this encounter Plan of Treatment Not on file documented as of this encounter Procedures Procedure Name Priority Date/Time Associated Diagnosis Comments IMAGING/RADIOLOGY/X RAY RESULTS ORDER 09/07/2011 11:14 AM LIBRARY SCIENCE PROFESSOR documented in this encounter Results * IMAGING/RADIOLOGY/XRAY RESULTS ORDER (09/07/2011 11:14 AM LIBRARY SCIENCE PROFESSOR) Anatomical Region Laterality Modality Other Narrative Transcriptions Document, Scanned - 09/07/2011 11:14 AM CST Scanned Document IMAGING documented in this encounter Visit Diagnoses Diagnosis Right ankle pain Pain in joint, ankle and foot documented in this encounter Care Teams Design Manager Relationship Specialty Start Date End Date Sam Riojas license in 2017 PCP - General 02/05/11 09/23/16 documented as of this encounter
--- OUTSIDE RECORDS SUMMARY | 2024-08-23 23:22 | XMS_ITS | Encounter Summary ---
Author Organization [facility] Address [address] [place] [address] Care Team Providers Care Shot Dropper Name Role Phone Sam Riojas Primary Care Provider Dimitry valdovinos Reason for Visit * Reason Comments Injury Elbow left JENNY fx Encounter Details Date Type Department Care Team (Latest Contact Info) Description 03/07/2012 12:57 PM CDT - 03/07/2012 11:59 PM CDT Hospital Encounter [facility] Pediatrics - Orthopedics [address] [place], [place] [id number] Juana Larson MD Discharge Disposition: Home or [...] * Patient Instructions* Mark Peck PA-C - 03/07/2012 1:06 PM CDT ORTHOPAEDIC CLINIC DISCHARGE INSTRUCTIONS SHEET Follow Up: As needed only May resume PE, sports, and activities as tolerated. No playground equipment for another month. School excuse: 03/07/2012 Ibuprofen (over the counter medication) may be [...] Dispensed Refills Start Date End Date ibuprofen (IBU-DROPS) 40 MG/ML suspension Take 12.5 mL by mouth every 6 hours as needed. 10/26/2012 documented as of this encounter Progress Notes * Mark Peck PA-C - 03/07/2012 1:06 PM CDT PEDIATRIC ORTHOPAEDIC CLINIC NOTE NAME: Cammy Bullock DATE OF SERVICE: 03/07/2012 DATE: 2005 PCP: Sam Riojas MD Chief Complaint Patient presents with ??? Injury Elbow left JENNY fx HISTORY: Cammy Bullock is a 6 y.o. 6 m.o. female who presents 6 week(s) status post a left supracondylar humerus fracture. Cammy Bullock was treated with a long arm cast for 3 weeks, and has been out of a cast for the past 3 weeks. She presents for follow up evaluation. Mom states that she has been doing well. Cammy reports that she has all of her motion back and is not having any pain/problems. The patient rates her pain as a 0 out of 10. The patient denies new onset of numbness in herupper extremities. PHYSICAL EXAM: Patient is well-developed, well-nourished and in no acute distress. Examination of the upper extremities shows the skin intact and there is no residual edema, ecchymosis, or angular malalignment noted. She is nontender to palpation throughout the left upper extremity today. ROM of the left upper extremity is normal when compared to the other side. The distal neurovascular examination is intact in the upper extremities. RADIOGRAPHS: AP and lateral xrays of the left elbow show further healing of the supracondylar humerus fracture. ASSESSMENT: left supracondylar humerus fracture PLAN: We reassured the family that her xrays show further healing and she now has full range of motion. she may now gradually resume most activities as tolerated, however we recommend that she refrain from contact sports/playground equipment for another 1 month. If she has any difficulties returning to activities, or any pain/problems in 3-4 weeks, we recommend they return to clinic. If she is doing well at that point, they do not need to follow up for this injury. The family was understanding of this plan and will follow up PRN. documented in this encounter Procedure Notes * Document, Scanned - 03/24/2012 1:28 PM CDTAssociated Order(s): IMAGING/RADIOLOGY/XRAY RESULTS ORDER documented in this encounter Plan of Treatment Not on file documented as of this encounter Procedures Procedure Name Priority Date/Time Associated Diagnosis Comments IMAGING/RADIOLOGY/X RAY RESULTS ORDER 03/24/2012 1:28 PM CDT documented in this encounter Results * IMAGING/RADIOLOGY/XRAY RESULTS ORDER (03/24/2012 1:28 PM CDT) Anatomical Region Laterality Modality Other Narrative Transcriptions Document, Scanned - 03/24/2012 1:28 PM CDT Scanned Document IMAGING documented in this encounter Visit Diagnoses Diagnosis Closed fracture of supracondylar humerus Fracture, cause unspecified(E887) Fracture, cause unspecified documented in this encounter Care Teams Shot Dropper Relationship Specialty Start Date End Date Sam Riojas license in 2017 PCP - General 02/05/11 09/23/16 documented as of this encounter
--- OUTSIDE RECORDS SUMMARY | 2024-08-23 23:22 | XMS_ITS | Encounter Summary ---
Author Organization [facility] Address [address] [place] [address] Care Team Providers Care Anthropology Professor Name Role Phone Sam Riojas Primary Care Provider Dimitry valdovinos Encounter Details Date Type Department Care Team (Latest Contact Info) Description 05/07/2014 9:52 AM CDT - 05/07/2014 11:59 PM CDT Hospital Encounter [facility] Pediatrics - Orthopedics [address] [place] [address] Mark Peck, PAMaxC [address] [place] [id number] Discharge Disposition: Home or Self Care Social [...] as needed. documented as of this encounter Nursing Notes * Evette Ram - 05/07/2014 12:02 PM CDT Pt's mother came in to get a new sling for her daughter. Sling was given to mom and pt is to followup as previously scheduled. documented in this encounter Plan of Treatment Not on file documented as of this encounter Visit Diagnoses Not on filedocumented in this encounter Care Teams Anthropology Professor Relationship Specialty Start Date End Date Sam Riojas license in 2016 PCP - General 02/05/11 09/23/16 documented as of this encounter
--- OUTSIDE RECORDS SUMMARY | 2024-08-23 23:22 | XMS_ITS | Encounter Summary ---
Author Organization [facility] Address [address] [place] [address] Care Team Providers Care Front Elevator Operator Name Role Phone Sam Riojas Primary Care Provider Dimitry valdovinos Encounter Details Date Type Department Care Team (Late st Contact Info) Description 06/17/2014 Orders Only [facility] Pediatrics - Orthopedics [address] [place] [address] Natalie Villafuerte MD [address] [place] [id number] Closed fracture of right radius, with routine healing, subsequent encounter Social History Tobacco Use Types Packs/Day Years Used Date Smoking Tobacco: Never Alcohol Use Standard Drinks/Week Comments No 0 (1 standard drink = 0.6 oz pur e alcohol) Sex and Gender Information Value Date Recorded Sex Assigned at Not on file Gender Identity Not on file Sexual Orientation Not on file documented as of this encounter Plan of Treatment Not on file documented as of this encounter Visit Diagnoses Diagnosis Closed fracture of right radius, with routine healing, subsequent encounter- Primary documented in this encounter Care Teams Front Elevator Operator Relationship Specialty Start Date End Date Sam Riojas license in 2017 PCP - General 02/05/11 09/23/16 documented as of this encounter
--- OUTSIDE RECORDS SUMMARY | 2024-08-23 23:22 | XMS_ITS | Encounter Summary ---
Author Organization [facility] Address [address] [place] [address] Care Team Providers Care Aerosol Line Operator Name Role Phone Sam Riojas Primary Care Provider Dimitry valdovinos Reason for Visit * Hospital - Outpatient (Routine) - Closed Specialty Diagnoses / Procedures Referred By Johnna hills Referred To Contact Procedure Suites Procedures OR CLOSED RX RADIAL SHAFT FX,MANIPULATN [address] [id number] Cg Special Procedures [address] [place] [id number] Referral ID Status Reason Start Date Expiration Date Visits Re quested Visits Authorized [id number] Closed 05/10/2014 06/09/2014 1 1 Encounter Details Date Type Department Care Team (Latest Contact Info) Description 05/14/2014 1:00 PM CDT - 05/14/2014 3:07 PM CDT Hospital Encounter [facility] - Procedure Suites [address] [place] [id number] Juan Manuel Bueno MD [address] [place] [address] [address] [place] [phone] Discharge Disposition: Home or Self Care Social [...] Sign Reading Time Taken Comments Blood Pressure 91/32 05/14/2014 3:05 PM CDT Pulse 80 05/14/2014 3:07 PM CDT Temperature 36.7 ??C (98 ??F) 05/14/2014 1:41 PM CDT Respiratory Rate 14 05/14/2014 3:07 PM CDT Oxygen Saturation 99% 05/14/2014 3:07 PM CDT Inhaled Oxygen Concentration - - Weight 43.6 kg (96 lb 1.9 oz) 05/14/2014 1:30 PM CDT Height 137 cm (4' 5.94 ) 05/14/2014 1:30 PM CDT Body Mass Index 23.23 05/14/2014 1:30 PM CDT Body Mass Index Percentile 95.56% 05/14/2014 1:3 0 PM CDT Growth Chart: CDC (Girls, 2- 20 Years) documented in this encounter Discharge Summaries * Abdiaziz Galeas MD - 05/14/2014 3:36 PM CDT PEDIATRIC ORTHOPAEDIC DISCHARGE SUMMARY NAME: Cammy Bullock DATE: 2005 ADMIT DATE: 05/14/2014 DISCHARGE DATE: ADMITTING PHYSICIAN: No admitting provider for patient encounter. ATTENDING PHYSICIAN: Juan Manuel Bueno MD PCP: Sam Riojas Admission Diagnosis: Right radius fracture, closed Discharge Diagnoses: Right radius fracture, closed Past Medical History: Past Medical History Diagnosis Date ??? NEGATIVE PAST MEDICAL HISTORY - SEE PROBLEM LIST ??? Unspecified asthma Diagnostic Studies: Radiology: X-Ray: Right radius- proximal radius fracture present in cast. Reduced in angulation in comparison to outside films in old cast Procedures: Closed reductio of right radius under sedation with application of right long arm cast Consults: None Hospital Course: The patient underwent the above mentioned procedure, which was without complication. Please see the details in the operative report for more information. Post-operatively, the patient was monitored in the special procedure room, and after tolerating a PO diet and achieving adequatepain control, the patient was discharged home in good condition. Condition at discharge: good Disposition: Home Discharge Medications: Discharge Medication List START taking these medications Instructions Authorizing Provider hydrocodone-acetaminophen 7.5-325 MG/15ML solution Take 5 mL by mouth every 4 hours as needed for Pain. Abdiaziz Galeas Unreviewed Medications Instructions Authorizing Provider IBUPROFEN PO Take by mouth as needed. Patient Instructions: Discharge Procedure Orders Why you were hospitalized Order Specific Question Answer Comments Your discharge diagnosis is Fracture of right radius, closed, with routine healing, subsequent encounter [[id number]] Follow up with Primary Care Provider (PCP) Our records show your Primary Care Provider (PCP) is Sam Riojas. Order Specific Question Answer Comments Follow Up Instructions: as scheduled No special diet needed Resume normal home diet as tolerated. Activity as tolerated Rest today, and increase activity level tomorrow as tolerated. No heavy lifting No weight bearing on right upper extremity Return to school Cammy may return to school tomorrow. Follow up with provider Order Specific Question Answer Comments Follow Up Instructions: In 1 week Special activity instructions Keep cast clean and dry. Do not put anything inside cast. May use [id number] Benadryl as needed for itching. documented in this encounter Discharge Instructions * Discharge Instructions* Aileen Cruz RN - 05/14/2014 3:32 PM CDT Post Sedation Instructions Your child may experience any of the following: Alert one minute, drowsy, dizzy, or sleepy the next minute. Sometimes irritable ( cranky ) throughout the day. Not hungry for a few hours until sedation medication has worn off . Rest: Your child may be drowsy for the rest of the day. It is best to lay your child on his/her side while asleep. Allow your child to sleep 3-4 hours, then arouse the child and offer sips of clear fluids.Allow your child to rest as much as desired. Check your child frequency to make sure he/she is sleeping comfortably and not having breathing problems. Traveling Home: Your child should be placed in a car seat or other appropriate auto restraint for the trip home. Beaware your child may be at risk for breathing problems should their head fall forward while in a sitting position. Have someone else sit next to the child if possible while traveling home so they canbe checked on frequently. Even though your child may appear awake and not as sleepy, they still maybe clumsy and should be watched so they stay safe. Nourishment: Begin feeding with sips of clear liquids (apple juice, Feliberto-Aid, or water), then increase liquids as tolerated. Begin with liquids and light foods that are not irritating to the stomach. If your child vomits, stop feeding for 30-60 minutes, then gradually resume clear liquids as tolerated. Call the doctor if your child has: Frequent nausea or vomiting Excessive weakness or dizziness Breathing problems If your child refuses to drink If your child is very sleepy or is difficult to wake from sleep Your child received Sedative: propofol and fentanyl IV If you have questions please call: Dept: special procedures Phone #:[phone] ext [phone] If unable to contact the department, seek medical care from your power house control room operator or [facility]. documented in this encounter Medications at Time of Discharge Medication Sig Dispensed Refills Start Date End Date IBUPROFEN PO Take by mouth as needed. documented as of this encounter Progress Notes * Aileen Cruz RN - 05/14/2014 4:00 PM CDT L arm sling given to parents and patient. Stated knowledgable of us beause the already had one. Prescription for lortab given to mom Discharged to home with parent. Awake, alert and coral. Po. Parents voiced understanding of discharge instructions. No further questions. Escorted to main entrance by this RN. Pt. Placed in age specific appropriate restraining device. documented in this encounter H&P Notes * Abdiaziz Galeas MD - 05/14/2014 1:29 PM CDT PEDIATRIC ORTHOPAEDIC HISTORY AND PHYSICAL NAME: Cammy Bullock DATE OF SERVICE: 05/14/2014 DATE: 2005 PCP: Sam Riojas No chief complaint on file. SUBJECTIVE: Cammy Bullock is a 8 y.o. female who presents with complaint of right arm pain afterinjury while rollerskating. She had a right proximal radius fracture in 02/2014 and was treated withlong arm casting and a velcro splint. She suffered a re-fracture on 05/02/2014 after rollerskating and was placed into a cast. On her last clinic visit she felt her elbow padding was minimal and the fo rearm mold was a little snug, and today she complains it is too tight. She is here for re-reductionunder sedation and immobilization. She currently rates her pain as 8-9/10 in her forearm. She denies significant numbness, tingling, paralysis, nausea, fevers, chills, or vomiting. Pain: increasing significant pain in arms. Has been constant at 8-9 today Neurological complaints: no Vascular complaints: none Associated symptoms: none Previous workup: none PAST MEDICAL HISTORY: asthma- no recent episodes PAST SURGICAL HISTORY: has past surgical history that includes myringotomy with tube insertion and adenoidectomy. MEDICATIONS: Current outpatient prescriptions:IBUPROFEN PO, Take by mouth as needed., Disp: , Rfl: , ALLERGIES: Augmentin and Bee venom SOCIAL HISTORY: Cammy lives with she parents. Cammy does attend school, elementary. Cammy is involved in no extracurricular activities. FAMILY HISTORY: Family history is negative for genetic conditions affecting children. has no familystatus information on file. REVIEW OF SYSTEMS: History obtained from both parents and the patient. A 12 point ROS was obtained and all others werenegative except what is listed in the HPI. PHYSICAL EXAMINATION:There were no vitals taken for this visit. General appearance: She has good head control. Orientation: alert, cooperative, no distress. Mood&affect: both mood and affect are normal, smiling, pleasant Lungs: breath sounds normal and symmetric; no rales or wheezes Heart: regular rhythm, without murmurs, gallops or rubs Abdomen: soft without mass, non-tender, with normal bowel sounds Spine: exam not performed Extremities: Bilateral upper extremity Skin - No rashes or abnormal dyspigmentation Inspection - No swelling, erythema, deformity, atrophy or hypertrophy noted of left arm. Right arm in long arm cast. Tenderness - absent on left Joint effusion - absent on left Range of motion - full range of motion on left Stability - stable on left Bilateral lower extremity Skin - No rashes or abnormal dyspigmentation Inspection - No swelling, erythema, deformity, atrophy or hypertrophy noted Tenderness - absent Joint effusion - absent Range of motion - full range of motion Stability - stable Neuro: Strength - normal throughout upper and lower extremities Sensation - normal all four extremities Tone - normal throughout axial and appendicular musculature Reflexes - normal Patellar reflexes bilaterally Gait: normal gait and stance, nonspastic RADIOLOGY: previous outside radiographs could not be obtained of Right Forearm LAB: No results found for this or any previous visit (from the past 12 hour(s)). ASSESSMENT: Right proximalradius fracture PLAN: 1. Treatment options discussed including closed reduction and immobilization. Risks/benefits/alternatives were discussed with the parents. 2. Questions solicited and answered. 3. They voiced understanding to preprocedural counseling. 4. parents were agreeable to proceed with this procedure. 5. Consent was obtained 6. The site was marked. 7. We will remove cast. 8. Plan to proceed with the above procedure. 9. Planned post operatively disposition is to Home documented in this encounter Procedure Notes * Renée Juarez MD - 05/14/2014 3:22 PM CDT POST-SEDATION EVALUATION 05/14/2014 3:22 PM Cammy Bullock is a 8 y.o. female sedated today for fracture reduction. The patient is sufficiently recovered from the acute administration of the sedation so as to participate in the evaluation or neurologic status has returned to pre-sedation or expected level of consciousness. The post-sedation assessment was completed based upon the elements below. The patient is stable andhas adequately recovered from sedation unless otherwise noted. Post-sedation Evaluation: Temp: 98 ??F Pulse: 83 Resp: 16 SpO2: 99 % BP: 91/31 mmHg Resp function: Natural Airway Cardiac Function: Stable Mental Status : Awake/Alert Pain: Comfortable / acceptable Nausea / Vomiting: None Post Procedure Hydration: Adequate A post-op evaluation was performed on the patient with the following assessment: No Apparent Anesthesia Complications;Vital Signs and Mental Status unchanged from Preop Unless otherwise indicated, the patient is being discharged from sedation service care. Renée Juarez MD * Juan Manuel Bueno MD - 05/14/2014 3:14 PM CDTAssociated Order(s): XR FOREARM 2 VW RIGHT Procedure(s): CLOSED REDUCTION Pre-Procedure Diagnose(s): Fracture of right radius, closed, initial encounter Post-Procedure Diagnose(s): Fracture of right radius, closed, with routine healing, subsequent encounter [facility] Procedure Report NAME: Cammy Bullock : 2005 DATE OF OPERATION: 05/14/2014 ATTENDING SURGEON: Juan Manuel Bueno MD PCP: Sam Riojas Preprocedural Diagnosis: Closed right radius fracture. ICD-9 CODE 813.21 Postprocedural Diagnosis: same Procedure: 1. Closed reduction right radius fracture. CPT CODE 64168 2. Application long arm cast Surgeon: Juan Manuel Bueno MD Assistants: Fawn Pascal MD & Abdiaziz Galeas MD Anesthesia: sedation Radiology: Low image intensifier was used for less than 20 seconds to assess adequacy of reduction. Indications: Cammy Bullock is a 8 y.o. female who sustained the above injury after falling onto the right upper extremity approximately 5 days ago. Films show apex volar angulation. In order to restore and maintain alignment it is elected to perform the above procedure. Procedure: Cammy Bullock was taken to the procedure room and placed on the table in the supine position. A time out was performed prior to initiating sedation to confirm reduction site and procedure. After general sedationhad been achieved, her cast was completely removed. The fracture site was then visualized using low image intensifier assistance. A closed manual reduction was performed. Once acceptable alignment was achieved, the patient was placed into a short arm cast. The fracture was re-imaged and alignment was maintained. AP and lateral films of the forearm were visualized. The cast was then extended to a long arm. Once the cast had hardened, Cammy Bullock recovered without event from sedation. Post-reduction films are available and show improved alignment and reduction of the radius fracture. Angulation has also been decreased. Disposition: The patient will be discharged home when stable. He will return to the office in 1 weeks and an AP and lateral film of the right forearm will be obtained with her current cast. She is maxx non weight bearing on the right upper extremity, but she may be activity as tolerated. She will be provided with lortab elixir upon discharge. ATTENDING ATTESTATION STATEMENT I was present for the jackson portions of the procedure. * Renée Juarez MD - 05/14/2014 1:58 PM CDT PROCEDURAL SEDATION NOTE Cammy Bullock 2005 [id number] Evaluated By: Renée Juarez MD, 05/14/2014 Cammy Bullock is a 8 y.o. female with a right proximal radius fracture who is scheduled today for reduction of right proximal radius fracture with procedural sedation. Patient Active Problem List Diagnosis ??? Injury of right ankle ??? Contusion of foot, right ??? Radius fracture ??? Closed fracture of right radius ??? Fracture of right radius Past Medical History Diagnosis Date ??? NEGATIVE PAST MEDICAL HISTORY - SEE PROBLEM LIST ??? Unspecified asthma Past Surgical History Procedure Laterality Date ??? Myringotomy with tube insertion ??? Adenoidectomy Allergies Augmentin and Bee venom Meds Current Outpatient Prescriptions Medication Sig Dispense Refill ??? IBUPROFEN PO Take by mouth as needed. Current Facility-Administered Medications Medication Dose Route Frequency Provider Last Rate Last Dose ??? lidocaine-tetracaine (SYNERA) 70-70 MG patch 1 Patch 1 Patch Apply externally pre-Procedure stephanie Juarez MD ??? 0.9% NaCl injection 10 mL 10 mL Intracatheter q8h Renée Juarez MD And ??? 0.9% NaCl injection 10 mL 10 mL Intracatheter PRN Renée Juarez MD ??? fentaNYL (SUBLIMAZE) injection 0.5-1 mcg/kg 0.5-1 mcg/kg Intravenous intra- Procedure multiple Renée Juarez MD ??? lidocaine (XYLOCAINE) 1 % injection 0.25-1 mL 2.5-10 mg Intravenous intra- Procedure once Renée Juarez MD ??? propofol (DIPRIVAN) 10 mg/ml injection 100-400 mcg/kg/min Intravenous intra- Procedure continuous Renée Juarez MD ??? propofol (DIPRIVAN) 10 mg/ml injection 0.5-3 mg/kg 0.5-3 mg/kg Intravenous intra-Procedure multiple Renée Juarez MD Review of Systems: No h/o sedation or anesthesia complications. No snoring. No sleep apnea. No seizures. No developmental delay. No fever. No recent nasal congestion or URI symptoms. No cough. No wheeze. No h/o asthma.No cyanosis. No heart murmur. No arrthymia. No vomiting. No diarrhea. No GERD. No renal disease. Nohepatic disease. I reviewed previous documentation: Yes ASA Class: Mild Systemic disease Likelihood of discomfort: High Ability to remain immobile: Poor Anticipated level of sedation: Deep Physical Exam: Blood pressure 101/55, pulse 88, temperature 98 ??F, resp. rate 20, height 1.37 m (4' 5.94 ), weight 43.6 kg (96 lb 1.9 oz). General appearance: alert, cooperative, no distress Oropharynx: no loose teeth, no obstruction Neck: full range of motion Heart: regular rhythm, normal S1 and S2, without murmurs, rubs or gallops Lungs: breath sounds normal and symmetric; no crackles or wheezes Sedation/Procedure Start Time: 1400 Time:1437 Propofol 0.5 mg/kg bolus followed by continuous infusion at 150 mcg/kg/min. Time: 1439 Fentanyl 40 mcg IV Time:1440 Patient deeply sedated, fracture reduction proceeding and vital signs stable. Time: 1444 Fentanyl 20 mcg IV and Propofol continuous infusion increased to 200 mcg/kg/min. Time: 1446 Patient deeply sedated, fracture reduction proceeding and vital signs stable. Time: 1455 Propofol decreased to 150 mcg/kg/min. Time: 1500 Propofol stopped. Time: 1503 Patient deeply sedated, fracture reduction completed and vital signs stable. Time: 1508 Patient sleeping comfortably. She will complete her recovery in procedure room. Stop Time: 1508 This sedation was personally performed by me. I was present throughout the entire procedure. Renée Juarez MD Color: Green Credentialed through:: 09/04/14 documented in this encounter Plan of Treatment [...] fragment. Narrative 05/14/2014 3:56 PM CDT Juan Manule Bueno MD ? 05/14/2014 ??5:14 PM [facility] Procedure Report NAME: ??Cammy Bullock : ??2005 DATE OF OPERATION: ??05/14/2014 ATTENDING SURGEON: ??Juan Manuel Bueno MD PCP: Sam Riojas Preprocedural Diagnosis: Closed right radius fracture. ICD-9 CODE 813.21 Postprocedural Diagnosis: same Procedure: 1. Closed reduction right radius fracture. CPT CODE 18724 2. Application long arm cast Surgeon: Juan [...] documented in this encounter Visit Diagnoses Diagnosis Fracture of right radius, closed, with routine healing, subsequent encounter Closed fracture of shaft of radius (alone), right, initial encounter- Primary documented in this encounter Administered Medications Inactive Administered Medications - up to 3 most recent administrations Medication Order MAR Action Action Date Dose Rate Site fentaNYL (SUBLIMAZE) injection 21.8-43.6 mcg 21.8-43.6 mcg (0.5-1 mcg/kg ? 43.6 kg), Intravenous, INTRA-PROCEDURE MULTIPLE, Starting on Tue05/14/14 at 1358, Until Tue05/15/14 at 0120, Administer 1 - 2 mcg/kg as standard dose. Maximum dose = 50 micrograms (per dose). High Risk, High Alert Medication: Must doucment double check on IV MAR Flowsheet. $ Given 05/14/2014 2:44 PM CDT 20 mcg $ Given 05/14/2014 2:39 PM CDT 40 mcg lidocaine (XYLOCAINE) 1 % injection 0.25-1 mL 0.25-1 mL (2.5-10 mg), Intravenous, INTRA-PROCEDURE ONCE, 1 dose, On Tue05/14/14 at 1358 $ Given 05/14/2014 2:36 PM CDT 1 mL lidocaine-tetracaine (SYNERA) 70-70 MG patch 1 Patch 1 patch, Administer over 1 Hours, PRE-PROCEDURE MULTIPLE, Starting on Tue05/14/14 at 1357, Until Tue05/15/14 at 0120, Apply to left upper extremity for IV start Duration below refers to the amount of time patch is to be applied. $ Applied 05/14/2014 1:40 PM CDT 1 patch Left Arm propofol (DIPRIVAN) 10 mg/ml injection 21.8-130.8 mg 21.8-130.8 mg (0.5-3 mg/kg ? 43.6 kg), Intravenous, INTRA-PROCEDURE MULTIPLE, Starting on Tue05/14/14 at 1358, Until Tue05/15/14 at 0120, Over 1 - 2 minutes. Maximum 150mg dose. Bolus Current Bag/Med 05/14/2014 2:37 PM CDT 21.8 mg propofol (DIPRIVAN) 10 mg/ml injection 100-400 mcg/kg/min ? 43.6 kg (26.16-104.64 mL/hr), Intravenous, INTRA-PROCEDURE CONTINUOUS, Starting on Tue05/14/14 at 1400, Until Tue05/15/14 at 0120, Titrate to deep sedation Rate Change 05/14/2014 2:55 PM CDT 150 mcg/kg/min 39.24 mL/hr $ New Bag/Syringe 05/14/2014 2:44 PM CDT 200 mcg/kg/min 52 .32 mL/hr $ New Bag/Syringe 05/14/2014 2:38 PM CDT 150 mcg/kg/min 39 .24 mL/hr documented in this encounter Care Teams Aerosol Line Operator Relationship Specialty Start Date End Date Sam Riojas license in 2016 PCP - General 02/05/11 09/23/16 documented as of this encounter
--- OUTSIDE RECORDS SUMMARY | 2024-08-23 23:22 | XMS_ITS | Encounter Summary ---
Author Organization [facility] Address [address] [facility] [place] [address] Care Team Providers Care Toeing Stockings Name Role Phone Sam Riojas Primary Care Provider Dimitry valdovinos Encounter Details Date Type Department Care Team (Latest Contact Info) Description 08/03/2011 2:11 PM PERSONAL INVESTMENT ADVISER - 08/03/2011 11:59 PM [facility] Hospital Encounter [facility] Pediatrics - Orthopedics [phone] [facility] [place] [place] [address] Juana Larson MD Orthopedics Discharge Disposition: Home or Self Care [...] this encounter Visit Diagnoses Diagnosis Pain in limb documented in this encounter Care Teams Toeing Stockings Relationship Specialty Start Date End Date Sam Riojas license in 2016 PCP - General 02/05/11 09/23/16 documented as of this encounter
--- OUTSIDE RECORDS SUMMARY | 2024-08-23 23:22 | XMS_ITS | Encounter Summary ---
Author Organization [facility] Address [address] [facility] [place] [address] Care Team Providers Care Loan Funder Name Role Phone Sam Riojas Primary Care Provider Dimitry valdovinos Encounter Details Date Type Department Care Team (Latest Contact Info) Description 05/28/2014 8:48 AM CDT - 05/28/2014 11:59 PM CDT Hospital Encounter [facility] Pediatrics - Radiology [address] [place] [address] Juana Larson MD Discharge Disposition: Home or [...] XR FOREARM RIGHT 2VW OR MORE Routine 05/28/2014 8:54 AM CDT Closed fracture of right radius, with routine healing, subsequent encounter documented in this encounter Results * XR FOREARM 2 VW RIGHT (05/28/2014 8:54 AM CDT) Anatomical Region Laterality Modality Upper Extremity [...] Abdiaziz Galeas MD DIAGNOSTIC IMAGING O RDERABLES documented in this encounter Visit Diagnoses Diagnosis Aftercare for healing traumatic fracture of lower arm, right, closed- Primary documented in this encounter Care Teams Loan Funder Relationship Specialty Start Date End Date Sam Riojas license in 2016 PCP - General 02/05/11 09/23/16 documented as of this encounter
--- OUTSIDE RECORDS SUMMARY | 2024-08-23 23:22 | XMS_ITS | Encounter Summary ---
Author Organization [facility] Address [address] [place] [address] Care Team Providers Care Staff Electrical Engineer Name Role Phone Sam Riojas Primary Care Provider Dimitry valdovinos Reason for Referral * Evaluate & Treat Specialty Diagnoses / Procedures Referred By Johnna hills Referred To Contact [address] [address] Referral ID Status Reason Start Date Expiration Date Visits Re quested Visits Authorized Scheduling Instructions 2-3 times a week, 2-3 weeks DELIVERY VEHICLE OFFICER Reason for Visit * Reason Comments Injury Ankle Multiple falls, xray s done 2 weeks ago Encounter Details Date Type Department Care Team (Latest Contact Info) Description 10/05/2011 9:15 AM SEAL DELIVERY VEHICLE OFFICER - 10/05/2011 11:59 PM SEAL DELIVERY VEHICLE OFFICER Hospital Encounter [facility] Pediatrics - Orthopedics [facility] [place] [address] Discharge Disposition: Home or Self Care Social History Tobacco Use Types Packs/Day Years Used Date Smoking Tobacco: Never Assessed Sex and Gender Information Value Date Recorded Sex Assigned at Not on file Gender Identity Not on file Sexual Orientation Not on file documented as of this encounter Discharge Instructions * Patient Instructions* Mark Peck PA-C - 10/05/2011 9:38 AM SEAL DELIVERY VEHICLE OFFICER ORTHOPAEDIC CLINIC DISCHARGE INSTRUCTIONS SHEET Follow Up: Please make a return appointment for 1 month(s) Physical Therapy and home exercise program. Limit strenuous activity--no running, jumping, playground equipment, physical education activities,sports activities until released. School excuse: 10/05/2011 Tylenol and Ibuprofen (over the counter medication) may be used per instructions. If you have any questions or concerns in the interim, or if you need to schedule surgery for your child, you may contact our orthopedic office at . If you need to make a clinic appointment, please call . DELIVERY VEHICLE OFFICER documented in this encounter Medications at Time of Discharge Medication Sig Dispensed Refills Start Date End Date acetaminophen, disintegrating, (TYLENOL CHILDRENS MELTAWAYS) 80 MG tablet Take 160 mg by mouth every 4 hours as needed. 11/02/2011 Albuterol Sulfate (PROAIR HFA IN) Inhale by mouth as needed. 11/02/2011 cefdinir (OMNICEF) 125 MG/5ML SUSR suspension Take by mouth every 12 hours. 11/02/2011 documented as of this encounter Progress Notes * Mark Peck PA-C - 10/05/2011 10:54 AM CST PEDIATRIC ORTHOPAEDIC CLINIC NOTE NAME: Cammy Bullock DATE OF SERVICE: 10/05/2011 DATE: 2005 PCP: Sam Riojas MD HISTORY: Cammy Bullock is a 6 y.o. 1 m.o. female with a history of chronic right ankle pain who presents for evaluation of another right ankle injury. At her last visit (08/2011), we recommended that she follow up with Rheumatology. Mom states that they saw someone at [facility], and their work up was reportedly negative. She had been doing well until someone fell on her ankle about 2 weeks ago. After having pain for a few days, she was seen at [facility] for xrays on 09/23/11. The xrays were negative, and they are here for further evaluation. Mom states that Cammy has been complaining of pain daily, and is refusing to bear weight on the right leg. Mom has been carrying her around for the past 2 weeks. She currently reports her pain to be 10/10. She denies any numbness or tingling in the right lower extremity. ROS: A 12 point review of systems was obtained today and is positive for what is stated above. PHYSICAL EXAM: Patient is well-developed, well-nourished and in no acute distress. She is smiling, and resting comfortably on the exam table. She is observed to be swinging her legs around, in no obvious pain. Examination of the right lower extremity, shows no obvious malalignment or abnormalities. There is no edema, ecchymosis, or erythema at the right ankle. She has mild diffuse tenderness throughout thelateral and anterior aspect of the ankle. She is brought through full passive ROM at the ankle, without guarding or hesitation, although she reports pain with this. She refuses to weight bear in the office today. She is able to actively move her ankle and wiggle her toes, and sensation is intact tolight touch. RADIOGRAPHS: AP, lateral, and mortise xrays of the right ankle from 09/23/11 are negative. ASSESSMENT: right ankle pain PLAN: The family was reassured that her xrays are normal and her exam today is benign. We talked atlength about encouraging her to start weight bearing on the ankle. She was given a referral for Physical Therapy to work on gait training, ankle ROM/strengthening, and desensitizing the ankle. We will keep her out of PE until further notice. She will follow up in clinic in 1 month for repeat exam. Betsey proctor will call in the interim with any questions/concerns. DELIVERY VEHICLE OFFICER documented in this encounter Miscellaneous Notes * Miscellaneous Scans - Document, Scanned - 10/27/2011 11:18 AM CST DELIVERY VEHICLE OFFICER documented in this encounter Plan of Treatment Scheduled Referrals Name Type Priority Associated Diagnoses Orde r Schedule AMB REFERRAL TO PHYSICAL THERAPY Outpatient Referral Routine Injury of right ankle Ordered: 10/05/2011 documented as of this encounter Visit Diagnoses Diagnosis Injury of right ankle Injury, other and unspecified, knee, leg, ankle, and foot documented in this encounter Care Teams Staff Electrical Engineer Relationship Specialty Start Date End Date Sam Riojas license in 2016 PCP - General 02/05/11 09/23/16 documented as of this encounter
--- OUTSIDE RECORDS SUMMARY | 2024-08-23 23:22 | XMS_ITS | Encounter Summary ---
Author Organization [facility] Address [address] [place] [address] Care Team Providers Care Electrical Manufacturing Technician Name Role Phone Sam Riojas Primary Care Provider Dimitry valdovinos Reason for Referral * Evaluate & Treat Specialty Diagnoses / Procedures [facility] Referred To Contact Juan Manuel Bueno MD [address] [place] [address] [address] [place] [address] Referral ID Status Reason Start Date Expiration Date V isits Requested Visits Authorized Specialty Services Required Scheduling Instructions 2-3 times a week, 4 weeks Instruct in home exercise program PRODUCTION ASSISTANT * Specialty Diagnoses / Procedures [facility] Referred To Contact [address] [address] Referral ID Status Reason Start Date Expiration Date Visits Re quested Visits Authorized PRODUCTION ASSISTANT Reason for Visit * Reason Comments Follow-up right ankle injury Encounter Details Date Type Department Care Team (Latest Contact Info) Description 07/20/2011 9:30 AM POST PRODUCTION ASSISTANT - 07/20/2011 11:59 PM POST PRODUCTION ASSISTANT Hospital Encounter [facility] Pediatrics - Orthopedics [address] [place] [address] [place] [address] Discharge Disposition: Home or Self Care Social History Tobacco Use Types Packs/Day Years Used Date Smoking Tobacco: Never Assessed Sex and Gender Information Value Date Recorded Sex Assigned at Not on file Gender Identity Not on file Sexual Orientation Not on file documented as of this encounter Discharge Instructions * Patient Instructions* Mark Peck PA-C - 07/20/2011 10:02 AM POST PRODUCTION ASSISTANT ORTHOPAEDIC CLINIC DISCHARGE INSTRUCTIONS SHEET Follow Up: Please make a return appointment for 3 week(s) Wear air cast for 1-2 weeks as needed. Physical therapy and home exercise program. Limit strenuous activity--no running, jumping, playground equipment, physical education activities,sports activities until released. School excuse: 07/20/2011 Tylenol and Ibuprofen (over the counter medication) may be used per instructions. If you have any questions or concerns in the interim, or if you need to schedule surgery for your child, you may contact our orthopedic office at . If you need to make a clinic appointment, please call . PRODUCTION ASSISTANT documented in this encounter Medications at Time of Discharge Medication Sig Dispensed Refills Start Date End Date acetaminophen, disintegrating, (TYLENOL CHILDRENS MELTAWAYS) 80 MG tablet Take 160 mg by mouth every 4 hours as needed. 11/02/2011 Albuterol Sulfate (PROAIR HFA IN) Inhale by mouth as needed. 11/02/2011 documented as of this encounter Progress Notes * Mark Peck PA-C - 07/20/2011 10:07 AM CST 07/20/2011 HISTORY: Cammy Bullock is a 5 y.o. 10 m.o. female who presents 5 week(s) status post a right ankle injury. She was treated with a short leg walking cast for a possible SH I distal fibula fracture.She had a cast change on 07/01/11 after accidentally urinating on the cast. She had been doing wellafter that up until 07/15/11 when she got a coco stuck down her cast. She was seen at [facility] where her cast was removed and she was placed into a short leg splint. She has been in the splint since then and is here for follow up evaluation. She is reportedly having quite a bit of pain now, and is taking Tylenol #3 for the pain. She is having difficulties weight bearing now as well. Sheis here today with her mom for further evaluation. The patient denies new onset of numbness in her lower extremities. PHYSICAL EXAM: Patient is well-developed, well-nourished and in no acute distress. Examination of the lower extremities out of the cast shows the a quarter sized sore on her heel. The area is red, with a subtle blister on it, however there is no full thickness skin breakdown noted. The remainder ofher skin is intact and without irritation secondary to the casting. There is minimal residual edemalaterally, but no ecchymosis, or angular malalignment noted. ROM of the right lower extremity is reduced at the ankle when compared to the other side. She is hesitant with any weight bearing in the office today. The distal neurovascular examination is intact in the lower extremities. RADIOGRAPHS: AP, lateral, and mortise xrays of the right ankle from 07/15/11 show no acute or healing fractures. She has a tiny ossification center distal to her lateral malleolus. ASSESSMENT: 1. right ankle injury 2. Right heel sore PLAN: We recommend the patient come out of her splint and remain out of immobilization today. It was explained to mom that her increased pain was most likely coming from her heel sore vs her ankle injury. The family was reassured that her xrays from 07/15/11 do not show any fractures. We will have her wear an air cast on the right ankle for 1-2 more weeks, and she will start a course of Physical Therapy to work on ankle ROM, strengthening, and desensitization exercises to help alleviate her pain and encourage her weight bearing. Mom was instructed to keep an eye on her heel sore, and follow up with us if it is not continuing to heal. We will see her back in clinic in 3 weeks for a wound check and ROM/gait check. She will stay out of PE until further notice. They will call in the interim with questions or concerns. PRODUCTION ASSISTANT * Evette Wei - 07/20/2011 9:33 AM CST Pt got coco stuck down in cast on 07/15/11. Seen in [facility] and had xrays done after cast was removed. They were told her right ankle was still fx and they placed her into a splint. She now has a sore on her heel from the splint. Mom states that she wont put weight on her right leg. PRODUCTION ASSISTANT documented in this encounter Miscellaneous Notes * Miscellaneous Scans - Document, Scanned - 08/19/2011 7:07 PM CST PRODUCTION ASSISTANT documented in this encounter Plan of Treatment Scheduled Referrals Name Type Priority Associated Diagnoses Orde r Schedule AMB REFERRAL TO PHYSICAL THERAPY Outpatient Referral Routine Injury of right ankle Ordered: 07/20/2011 AMB REFERRAL TO PHYSICAL THERAPY Outpatient Referral Routine Injury of right ankle Ordered: 07/20/2011 documented as of this encounter Visit Diagnoses Diagnosis Injury of right ankle Injury, other and unspecified, knee, leg, ankle, and foot documented in this encounter Care Teams Electrical Manufacturing Technician Relationship Specialty Start Date End Date Sam Riojas license in 2017 PCP - General 02/05/11 09/23/16 documented as of this encounter
--- OUTSIDE RECORDS SUMMARY | 2024-08-23 23:22 | XMS_ITS | Encounter Summary ---
Author Organization [facility] Address [address] [place] [address] Care Team Providers Care Geological Science Teacher Name Role Phone Sam Riojas Primary Care Provider Dimitry valdovinos Reason for Visit * Reason Comments Fracture Arm f/u right arm fractu re Encounter Details Date Type Department Care Team (Latest Contact Info) Description 05/28/2014 8:30 AM CDT - 05/28/2014 8:47 AM CDT Hospital Encounter [facility] Pediatrics - Orthopedics [address] [place] [id number] Juana Larson MD Discharge Disposition: Home or [...] this encounter Discharge Instructions * Patient Instructions* Rony Chase, - 05/28/2014 9:15 AM CDT Encounter Diagnoses Name Primary? Fracture of right radius, closed, with routine healing, subsequent encounter Yes ??? Closed fracture of right radius, with routine healing, subsequent encounter Return appointment: 2 weeks with xrays in the cast Call [phone], option 1, for return if your child has new symptoms or problems, or if you have concerns. Call [phone] for questions. Physicians orders: Keep cast clean and dry. Do not insert any objects into cast. Call for urgent appointment if cast gets wet or object is stuck in cast. Medications prescribed: None Activity Restrictions: No gym, recess, or sports School/Work Excuse: Patient had an appointment 05/28/2014 documented in this encounter Medications at Time of Discharge Medication Sig Dispensed Refills Start Date End Date hydrocodone-acetaminophen 7.5-325 MG/15ML solution Take 5 mL by mouth every 4 hours as needed for Pain. 118 mL 1 05/14/2014 06/20/2014 IBUPROFEN PO Take by mouth as needed. 01/17/2018 documented as of this encounter Progress Notes * Juana Larson MD - 06/04/2014 8:54 AM CDT PEDIATRIC ORTHOPAEDIC CLINIC NOTE NAME: Cammy Bullock DATE OF SERVICE: 05/28/2014 DATE: 2005 PCP: Sam Riojas HISTORY: Cammy Bullock is a 8 y.o. 9 m.o. female who presents 3 weeks status post a right radiusfracture. Cammy Bullock was treated with long arm casting. She was taken to the special procedure room on 05/14/14 for closed reduction and casting and presents for follow up evaluation after havinggotten her cast wet. The patient rates her pain as mild. The patient denies new onset of numbness in her upper extremities. MEDICATIONS: Current outpatient prescriptions:hydrocodone-acetaminophen 7.5-325 MG/15ML solution, Take 5 mL by mouth every 4 hours as needed for Pain., Disp: 118 mL, Rfl: 1, ; IBUPROFEN PO, Take by mouth as needed., Disp: , Rfl: , ALLERGIES: Allergies as of 05/28/2014 - reviewed 05/28/2014 Allergen Reaction Noted ??? Augmentin 02/09/2011 ??? [...] no acute distress The examination was performed both in and out of Skin: no significant cast irritation or maceration. However, the cast is breaking down some at the hand and margins and the padding is now worn very thin. Swelling: minimal Tenderness: mild Deformity: No ROM: limited by pain Strength: limited by pain Gait: normal Neurological Exam: normal Vascular Exam: normal RADIOGRAPHS: AP and lateral xrays of the right forearm were taken and assessed today. -Radiographic Assessment: They show healing of radius shaft in unchanged alignment ASSESSMENT: right radial shaft fracture PLAN: We recommend the patient undergo a cast change today. She tolerated this well. Cast care and fracture precautions were reviewed today. The patient will stay out of PE/sports until further notice. The patient will follow up in 2 weeks and get an AP and lateral xray of the right forearm in the cast. They will call in the interim with questions or concerns. I have personally seen and evaluated the above patient with the resident. HISTORY: Patient has history of right radius fracture. PHYSICAL EXAM: Exam shows skin intact. RADIOGRAPHIC ASSESSMENT: I assessed the radiographs which showed unchanged alignment PLAN: Follow up 2 weeks. I have discussed the results of the physical exam and all studies with the patient and family. I developed the above plan of care and discussed it with the patient. I agree with the resident's assessment and plan of care. I have reviewed the above note and I have edited it. documented in this encounter Plan of Treatment [...] right radius, closed, with routine healing, subsequent encounter- Primary Closed fracture of right radius, with routine healing, subsequent encounter Aftercare for healing traumatic fracture of lower arm, right, closed- Primary documented in this encounter Care Teams Geological Science Teacher Relationship Specialty Start Date End Date Sam Riojas license in 2016 PCP - General 02/05/11 09/23/16 documented as of this encounter
--- OUTSIDE RECORDS SUMMARY | 2024-08-23 23:22 | XMS_ITS | Encounter Summary ---
Author Organization [facility] Address [address] [place] [address] Care Team Providers Care Kitchen Manager Name Role Phone Sam Riojas Primary Care Provider Dimitry valdovinos Reason for Visit * Reason Comments Injury Ankle Encounter Details Date Type Department Care Team (Latest Contact Info) Description 06/22/2011 9:50 AM CDT - 06/22/2011 11:59 PM CDT Hospital Encounter [facility] Pediatrics - Orthopedics [address] [place] [address] Discharge Disposition: Home or Self Care Social History Tobacco Use Types Packs/Day Years Used Date Smoking Tobacco: Never Assessed Sex and Gender Information Value Date Recorded Sex Assigned at Not on file Gender Identity Not on file Sexual Orientation Not on file documented as of this encounter Discharge Instructions * Patient Instructions* Leonora Pelaez PA - 06/22/2011 10:36 AM CDT ORTHOPAEDIC CLINIC DISCHARGE INSTRUCTIONS SHEET Follow Up: Please make a return appointment for 3-4 week(s) Limit strenuous activity--no running, jumping, playground equipment, physical education activities,sports activities until released. School excuse: 06/22/2011 Tylenol (over the counter medication) may be used [...] encounter Progress Notes * Evette Wei - 06/22/2011 10:58 AM CDT Applied [facility] right. Cast Care instructions given to patient and family. They acknowledged understanding. * Leonora Pelaez PA - 06/22/2011 10:28 AM CDT 06/22/2011 HISTORY: Cammy Bullock is a 5 y.o. 10 m.o. female who presents 1 week(s) status post a right ankle injury she sustained when she tripped over a concrete block. Cammy Bullock was seen at [facility] and placed into an Aircast and presents for further evaluation. Mom states she will not walk onright leg. The patient rates her pain as a 7 out of 10. The patient denies new onset of numbness inher lower extremities. PAST MEDICAL/SURGICAL: Unchanged since prior visit here. MEDICATIONS: Current outpatient prescriptions:acetaminophen, disintegrating, (TYLENOL CHILDRENS MELTAWAYS) 80 MG tablet, Take 160 mg by mouth every 4 hours as needed., Disp: , Rfl: ; Albuterol Sulfate (PROAIR HFA IN), Inhale by mouth as needed., Disp: , Rfl: ALLERGIES: Allergies as of 06/22/2011 - reviewed 06/22/2011 Allergen Reaction Noted ??? Augmentin 02/09/2011 IMMUNIZATIONS: Immunization status: stated as current, but no records available. ROS: A 12 point review of systems was obtained today and is positive for what is stated above. PHYSICAL EXAM: Patient is well-developed, well-nourished and in no acute distress. Breathing is non-labored and there are no audible wheezes. Head and trunk control are appropriate. The patient is non weight bearing on the right lower extremity in the office today. Examination of the lower extremities out of the Aircast shows the skin to be intact and in good condition. Right Ankle Exam: 2+ tenderness over the lateral malleolus 2+ swelling over the lateral malleolus; limited motion due to pain; The distal neurovascular examination is intact in the lower extremities. RADIOGRAPHS: AP, lateral, and mortise xrays of the right ankle from [place] show soft tissue swelling laterally but no obvious osseous abnormalities. ASSESSMENT: right ankle injury with possible SH I distal fibula fracture. PLAN: We recommend the patient go into a short leg walking cast today. The patient tolerated this well. Cast care and fracture precautions were reviewed today. The patient will stay out of PE/sports until further notice. Patient's weight bearing status will be as tolerated. The patient will follow up in 3-4 week(s) and get AP, lateral, and mortise xrays of the right ankle out of the cast. They will call in the interim with questions or concerns. * Ira Jain RN - 06/22/2011 9:52 AM CDT 1 weeks while chasing dog she fell onto [employer]. Taken to [facility] for xrays that same night. Sent home in air cast. documented in this encounter Miscellaneous Notes * Miscellaneous Scans - Document, Scanned - 08/03/2011 8:11 PM CST ING MACHINE OPERATOR * Miscellaneous Scans - Document, Scanned - 08/03/2011 8:01 PM CST ING MACHINE OPERATOR documented in this encounter Plan of Treatment Scheduled Orders Name Type Priority Associated Diagnoses Orde r Schedule SHORT LEG CAST ([facility]) Procedures Routine Injury of right ankle ONCE for 1 Occurrences starting 06/22/2011 until 06/22/2011 CAST REMOVAL Procedures Routine Injury of right ankle Ordered: 06/22/2011 documented as of this encounter Visit Diagnoses Diagnosis Pain in joint, ankle and foot Injury of right ankle Injury, other and unspecified, knee, leg, ankle, and foot documented in this encounter Care Teams Kitchen Manager Relationship Specialty Start Date End Date Sam Riojas license in 2017 PCP - General 02/05/11 09/23/16 documented as of this encounter
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
--- OUTSIDE RECORDS SUMMARY | 2024-08-23 23:22 | XMS_ITS | Encounter Summary ---
Author Organization [facility] Address [address] [place] [address] Care Team Providers Care Insurance Verifier Name Role Phone Sam Riojas Primary Care Provider Dimitry valdovinos Encounter Details Date Type Department Care Team (Latest Contact Info) Description 07/01/2011 1:25 PM CDT - 07/01/2011 1:30 PM CDT Hospital Encounter [facility] Pediatrics - Orthopedics [address] [place] [id number] Discharge Disposition: Home or Self Care Social History Tobacco Use Types Packs/Day Years Used Date Smoking Tobacco: Never Assessed Sex and Gender Information Value Date Recorded Sex Assigned at Not on file Gender Identity Not on file Sexual Orientation Not on file documented as of this encounter Discharge Instructions * Patient Instructions* Leonora Pelaez PA - 07/01/2011 1:55 PM CDT ORTHOPAEDIC CLINIC DISCHARGE INSTRUCTIONS SHEET Follow Up: Please keep previously scheduled follow up appointment at [facility]. Limit strenuous activity--no running, jumping, playground equipment, physical education activities,sports activities until released. School excuse: 07/01/2011 Tylenol (over the counter medication) may be [...] encounter Progress Notes * Evette Wei - 07/01/2011 3:25 PM CDT Removed SLC right. Applied SLC right. Cast Care instructions given to patient and family. They acknowledged understanding. * Leonora Pelaez PA - 07/01/2011 1:54 PM CDT 07/01/2011 HISTORY: Cammy Bullock is a 5 y.o. 10 m.o. female who presents 2.5 week(s) status post a right ankle fracture. Cammy Bullock was treated with short leg walking cast and presents for follow up evaluation early as her cast is wet because she accidentally urinated on it. The patient rates her pain as a [...] of the right lower extremity is reduced when compared to the other side. The distal neurovascular examination is intact in the lower extremities. RADIOGRAPHS: None today. ASSESSMENT: right ankle injury with possible SH I distal fibula fracture. PLAN: We recommend the patient's short leg walking cast be changed today as it is wet. She tolerated this well. Cast care and fracture precautions were reviewed today. The patient will stay out of PE/sports until further notice. The patient will keep her previously scheduled follow up visit at the [place] office and get an AP, lateral, and mortise xray of the right ankle out of the cast. They will call in the interim with questions or concerns. documented in this encounter Miscellaneous Notes * Miscellaneous Scans - Document, Scanned - 08/06/2011 5:49 AM CST GE CONTROL COORDINATOR documented in this encounter Plan of Treatment Not on file documented as of this encounter Visit Diagnoses Diagnosis Ankle injury Injury, other and unspecified, knee, leg, ankle, and foot documented in this encounter Care Teams Insurance Verifier Relationship Specialty Start Date End Date Sam Riojas license in 2016 PCP - General 02/05/11 09/23/16 documented as of this encounter
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
--- OUTSIDE RECORDS SUMMARY | 2024-08-23 23:22 | XMS_ITS | Encounter Summary ---
Author Organization [facility] Address [address] [address] Care Team Providers Care Retail Pos Specialist Name Role Phone Sam Riojas Primary Care Provider Dimitry valdovinos Reason for Visit * Reason Comments Injury Ankle Encounter Details Date Type Department Care Team (Latest Contact Info) Description 11/02/2011 9:15 AM MAIL HANDLER SORTER - 11/02/2011 11:59 PM MAIL HANDLER SORTER Hospital Encounter [facility] Pediatrics - Orthopedics [address] [address] Discharge Disposition: Home or Self Care Social [...] * Patient Instructions* Mark Peck PA-C - 11/02/2011 9:43 AM MAIL HANDLER SORTER ORTHOPAEDIC CLINIC DISCHARGE INSTRUCTIONS SHEET Follow Up: As needed only Follow up with Dr. Riojas for further evaluation. Continue with Physical Therapy and exercises at home. Continue encouraging her to walk at home. School excuse: 11/02/2011 Tylenol and Ibuprofen (over the counter medication) may be used per instructions. If you have any questions or concerns in the interim, or if you need to schedule surgery for your child, you may contact our orthopedic office at . If you need to make a clinic appointment, please call . HANDLER SORTER documented in this encounter Medications at Time of Discharge Medication Sig Dispensed Refills Start Date End Date ibuprofen (IBU-DROPS) 40 MG/ML suspension Take 12.5 mL by mouth every 6 hours as needed. 10/26/2012 documented as of this encounter Progress Notes * Mark Peck PA-C - 11/02/2011 10:56 AM CST PEDIATRIC ORTHOPAEDIC CLINIC NOTE NAME: Cammy Bullock DATE OF SERVICE: 11/02/2011 DATE: 2005 PCP: Sam Riojas MD HISTORY: Cammy Bullock is a 6 y.o. 2 m.o. female with a history of chronic right ankle pain who presents for follow up evaluation today. She was last seen in clinic 1 month ago for re-evaluation of her right ankle pain and inability to bear weight. This has been an ongoing issue for Cammy since February 2011. She has had several negative xrays and a normal MRI and negative Rheumatology workup. We recommended a course of PT to get her weight bearing and desensitizing her ankle. Mom states that she has been going to therapy, but thinks that she is being pushed too hard. She reports that Cammy has a significant increase in her ankle pain after therapy, and will cry and refuse to bear weightwhile at home. Mom states that she recently had an accident, urinating in her pants, because she was unable to make it to the bathroom in time due to her ankle pain. She is here today for further evaluation. Cammy currently reports 10/10 ankle pain. She denies any numbness or tingling in the right lower extremity. PHYSICAL EXAM: Patient is well-developed, well-nourished and in no acute distress. She is smiling, and resting comfortably on the exam table. She is observed to be swinging her legs around, in no obvious pain. She is observed to grab her ankle and move it behind her, without any obvious pain. Examination of the right lower extremity, shows no obvious malalignment or abnormalities. There is no edema, ecchymosis, or erythema at the right ankle. She has mild diffuse tenderness throughout thelateral and anterior aspect of the ankle. She refuses ROM testing today. She refuses to weight bearin the office today. She is able to actively move her ankle and wiggle her toes, and sensation is intact to light touch. RADIOGRAPHS: None today. ASSESSMENT: right ankle pain PLAN: Mom was reassured that once again her ankle exam is benign. I informed her that I have spokenwith her therapist, and that Cammy is able to fully weight bear, both walk and run, in therapy without any pain. She was even jumping on the trampoline at her last PT session without any pain. Mom immediately cut in and only spoke of the increased pain Cammy has after PT and that she needs to carry her out of here and while at home. I once again reassured her that there are no orthopedic reasons for her to be having this pain. Our recommendation is for her to continue with Physical Therapy,since she is doing well there, and for her to see her Data Solutions Architect, Dr. Riojas, for further evaluation for other possible reasons for her to not weight bear at home, or at school (since she is reportedly still using a wheel chair while at school). We will see her back as needed. They will call in the interim with any questions/concerns. HANDLER SORTER * Ira Jain RN - 11/02/2011 9:31 AM CST Patient here for follow-up. Complaining of intense pain,but not showing any outward signs. Ramesh Peck made aware of 10 scoring of pain per patient. Pain medication was given by Mom at 0800. HANDLER SORTER documented in this encounter Miscellaneous Notes * Miscellaneous Scans - Document, Scanned - 11/30/2011 10:12 AM CDT documented in this encounter Plan of Treatment Not on file documented as of this encounter Visit Diagnoses Not on filedocumented in this encounter Care Teams Retail Pos Specialist Relationship Specialty Start Date End Date Sam Riojas license in 2016 PCP - General 02/05/11 09/23/16 documented as of this encounter
--- OUTSIDE RECORDS SUMMARY | 2024-08-23 23:22 | XMS_ITS | Encounter Summary ---
Author Organization [facility] Address [address] [place] [address] Care Team Providers Care Ice Rink Attendant Name Role Phone Sam Riojas Primary Care Provider Dimitry valdovinos Reason for Visit * Reason Comments Follow-up right radius fx Encounter Details Date Type Department Care Team (Latest Contact Info) Description 05/09/2014 1:00 PM CDT - 05/09/2014 11:59 PM CDT Hospital Encounter [facility] Pediatrics - Orthopedics [address] [place] [address] [place] [address] Natalie Villafuerte MD [facility] [place] [address] Discharge Disposition: Home or Self Care Social [...] * Patient Instructions* Natalie Villafuerte MD - 05/09/2014 1:39 PM CDT ORTHOPAEDIC CLINIC DISCHARGE INSTRUCTIONS SHEET DIAGNOSIS: Radius fracture, right, closed, with routine healing, subsequent encounter - Plan: XR FOREARM 2 VW RIGHT Follow Up: Please make a return appointment for 1 week(s) after reduction. If you cannot keep an appointment, please call and notify In DC clinic - Yes X-Rays next visit- Yes - right Forearm in cast Activity Restrictions/Excuses: no PE, no team sports and no collision sports Excused from School on 05/09/2014 She will need to have surgery on the forearm next Tuesday or Tuesday Medications prescribed: Over the counter medication may be used per instructions. Physicians orders: none. Physical therapy - No To make an appointment, please call . To schedule the surgery discussed with the doctor during your child's office visit, call Aurelia at [phone], ext. [phone]. If you have a question for the orthopaedic nurse, call [phone], ext. [phone]. After visit summary completed by Natalie Villafuerte MD. documented in this encounter Medications at Time of Discharge Medication Sig Dispensed Refills Start Date End Date IBUPROFEN PO Take by mouth as needed. documented as of this encounter Progress Notes * Natalie Villafuerte MD - 05/09/2014 1:13 PM CDT PEDIATRIC ORTHOPAEDIC CLINIC NOTE NAME: aCmmy Bullock DATE OF SERVICE: (Not on file) DATE: 2005 PCP: Sam Riojas HISTORY: Cammy Bullock is a 8 y.o. 8 m.o. female who presents 1 week(s) status post a right radial shaft re-fracture. Cammy Bullock was treated with long arm casting and presents for follow up evaluation. The patient rates her pain as a 3 out of 10. The patient denies new onset of numbness inher upper extremities. She does feel as if there is no elbow padding remaining and that the forearmpart [where it is molded] is snug. MEDICATIONS: Current outpatient prescriptions:IBUPROFEN PO, Take by mouth as needed., Disp: , Rfl: , ALLERGIES: Allergies as of 05/09/2014 - reviewed 05/02/2014 Allergen Reaction Noted ??? Augmentin 02/09/2011 ??? [...] extremity. General appearance: no acute distress, alert/oriented x3 and appropriate mood and affect The examination was performed in splint/cast Skin: normal and no irritation about the edges of the cast Swelling: none Tenderness: unable to assess due to cast Deformity: unable to assess due to cast ROM: full to shoulders and fingers Strength: normal, equal bilaterally to shoulders and fingers Gait: normal Neurological Exam: normal Vascular Exam: normal RADIOGRAPHS: AP and lateral xrays of the right forearm were taken and assessed today. -Radiographic Assessment: They show displacement at the fracture site that is volar apex, unacceptable for age ASSESSMENT: right radial shaft re-fracture PLAN: We recommend the patient continue her cast today. Cast care and fracture precautions were reviewed today. The patient will stay out of PE/sports until further notice. Due to her position, I recommend attempted closed reduction in the procedure room. I discussed withmother that with closed reduction, she will likely heal without the need for surgery, but that due to this being a re-fracture, it is difficult to maintain position. We will schedule her for follow up in the procedure room for closed reduction and repeat long arm casting. The patient will follow up1 week after the procedure and get an AP and lateral xray of the right forearm in the cast. They will call in the interim with questions or concerns. documented in this encounter Plan of Treatment Not on file documented as of this encounter Visit Diagnoses Diagnosis Radius fracture, right, closed, with routine healing, subsequent encounter- Primary Closed fracture of unspecified part of radius (alone) documented in this encounter Care Teams Ice Rink Attendant Relationship Specialty Start Date End Date Sam Riojas license in 2016 PCP - General 02/05/11 09/23/16 documented as of this encounter
--- OUTSIDE RECORDS SUMMARY | 2024-08-23 23:22 | XMS_ITS | Encounter Summary ---
Author Organization [facility] Address [address] [place] [address] Care Team Providers Care Survey Project Manager Name Role Phone Sam Riojas Primary Care Provider Dimitry valdovinos Reason for Visit * Reason Comments Injury Ankle Not walking and swel ling of ankle Encounter Details Date Type Department Care Team (Latest Contact Info) Description 08/03/2011 2:10 PM PLAIN [employer]OTH[employer] POLICE OFFICER Hospital Encounter [facility] Pediatrics - Orthopedics [address] [place] [address] Discharge Disposition: Home or Self Care Social History Tobacco Use Types Packs/Day Years Used Date Smoking Tobacco: Never Assessed Sex and Gender Information Value Date Recorded Sex Assigned at Not on file Gender Identity Not on file Sexual Orientation Not on file documented as of this encounter Discharge Instructions * Patient Instructions* Ira Jain RN - 08/03/2011 2:30 PM [employer]ICE OFFICER ORTHOPAEDIC CLINIC DISCHARGE INSTRUCTIONS SHEET Follow Up: We will call with MRI results. Limit strenuous activity--no running, jumping, playground equipment, physical education activities,sports activities until released. School excuse: 08/03/2011 Tylenol and Ibuprofen (over the counter medication) may be used per instructions. If you have any questions or concerns in the interim, or if you need to schedule surgery for your child, you may contact our orthopedic office at . If you need to make a clinic appointment, please call . MRI is scheduled [id number] at [facility]. Please arrive at 1 pm for 2 pm test. N [employer]OTHES POLICE OFFICER documented in this encounter Medications at Time of Discharge Medication Sig Dispensed Refills Start Date End Date acetaminophen, disintegrating, (TYLENOL CHILDRENS MELTAWAYS) 80 MG tablet Take 160 mg by mouth every 4 hours as needed. 11/02/2011 Albuterol Sulfate (PROAIR HFA IN) Inhale by mouth as needed. 11/02/2011 documented as of this encounter Progress Notes * Mark Peck PA-C - 08/03/2011 3:38 PM CST 08/03/2011 HISTORY: Cammy Bullock is a 5 y.o. 11 m.o. female who presents for follow up evaluation for right ankle pain. She recently was treated for a possible SH I distal fibula fracture. She came out of her cast/splint at her last visit 2 weeks ago. She had a sore over her heel from her splint, and mom states that has healed up. We also recommended PT and she reportedly went to one session and felt like this helped some. Mom states that they are back early today because Cammy is continuing to complain of a significant amount of pain. She is reportedly up a lot at night saying her ankle hurts. She is having difficulties weight bearing as well. She is here today with her mom for further evaluation. The patient denies new onset of numbness in her lower extremities. PHYSICAL EXAM: Patient is well-developed, well-nourished and in no acute distress. Examination of the lower extremities shows the quarter sized sore on her heel to be nearly healed. There is no residual edema laterally. She reports pain to light touch along the lateral and posterior aspect of her ankle. She is passively brought through full ROM with the right ankle without hesitation. She is minimally tender to palpation at the lateral malleolus and ATFL. She is hesitant with any weight bearingin the office today and mom is carrying her. The distal neurovascular examination is intact in the lower extremities. RADIOGRAPHS: AP, lateral, and mortise xrays of the right ankle from 07/15/11 show no acute or healing fractures. She has a tiny ossification center distal to her lateral malleolus. ASSESSMENT: right ankle injury PLAN: We recommend getting an MRI of the right ankle for further evaluation. She will have this done on 08/08/11 at [facility] and we will call her with the results. If the MRI is negative, we will continue with physical therapy for ROM, strengthening exercises, and desensitization exercises to help alleviate her pain and encourage her weight bearing. She will stay out of PE until further notice. They will call in the interim with questions or concerns. [employer]ICE OFFICER documented in this encounter Plan of Treatment Not on file documented as of this encounter Visit Diagnoses Diagnosis Injury of right ankle Injury, other and unspecified, knee, leg, ankle, and foot documented in this encounter Care Teams Survey Project Manager Relationship Specialty Start Date End Date Sam Riojas license in 2016 PCP - General 02/05/11 09/23/16 documented as of this encounter
--- OUTSIDE RECORDS SUMMARY | 2024-08-23 23:22 | XMS_ITS | Encounter Summary ---
Author Organization [facility] Address [address] [place] [address] Care Team Providers Care Laborer Adjustable Steel Joist Name Role Phone Sam Riojas Primary Care Provider Dimitry valdovinos Reason for Visit * Reason Comments Injury Foot right foot fx Encounter Details Date Type Department Care Team (Latest Contact Info) Description 02/09/2011 10:29 AM CDT - 02/09/2011 11:59 PM CDT Hospital Encounter [facility] Pediatrics - Orthopedics [address] [place], [place] [id number] Discharge Disposition: Home or Self Care Social History Tobacco Use Types Packs/Day Years Used Date Smoking Tobacco: Never Assessed Sex and Gender Information Value Date Recorded Sex Assigned at Not on file Gender Identity Not on file Sexual Orientation Not on file documented as of this encounter Discharge Instructions * Patient Instructions* Mark Peck PA-C - 02/09/2011 10:57 AM CDT ORTHOPAEDIC CLINIC DISCHARGE INSTRUCTIONS SHEET Follow Up: Please make a return appointment for 3 week(s) May walk on the cast. Limit strenuous activity--no running, jumping, playground equipment, physical education activities,sports activities until released. School excuse: 02/09/2011 Tylenol and Ibuprofen (over the counter medication) [...] encounter Progress Notes * Evette Wei - 02/09/2011 11:18 AM CDT Removed SAC right. * Mark Peck PA-C - 02/09/2011 10:48 AM CDT 02/09/2011 HISTORY: Cammy Bullock is a 5 y.o. 5 m.o. female who presents 5 day(s) status post a right ankleinjury. She reportedly was running and hit her ankle on a wagon wheel that was in the yard. Jose Manuel Bullock was splinted at [facility] and presents for further evaluation. Mom states that Cammy has not been walking on the right leg, and that they have been carrying her everywhere for the past few days. The patient rates her pain as a 0 out of 10 currently. The patient denies new onset of numbness in her lower extremities. PAST MEDICAL HISTORY: No past medical history on file. PAST SURGICAL HISTORY: No past surgical history on file. MEDICATIONS: Current outpatient prescriptions:Albuterol Sulfate (PROAIR HFA IN), Inhale by mouth asneeded., Disp: , Rfl: ALLERGIES: Allergies as of 02/09/2011 - reviewed 02/09/2011 Allergen Reaction Noted ??? Augmentin 02/09/2011 IMMUNIZATIONS: [...] of the lower extremities out of the splint shows the skin to be intact and in good condition. Ankle Exam: 2+ tenderness over the lateral malleolus 2+ effusion noted laterally Positive findings: decreased ROM Negative findings: no ecchymosis no tenderness over medial malleolus or throughout the rest of the right foot/ankle. The distal neurovascular examination is intact in the lower extremities. RADIOGRAPHS: AP, lateral, and mortise xrays of the right ankle show soft tissue swelling laterally.There are no obvious fractures identified. ASSESSMENT: right ankle injury PLAN: We recommend the patient go into a short leg walking cast today for a possible SH I distal fibula fracture. The patient tolerated this well. Cast care and fracture precautions were reviewed today. The patient will stay out of PE/sports until further notice. Patient's weight bearing status will be WBAT. The patient will follow up in 3 week(s) and get AP, lateral, and mortise xrays of the right ankle out of the cast. They will call in the interim with questions or concerns. * Evette Wei - 02/09/2011 10:31 AM CDT She fell and hit her foot on a wagon wheel. She was seen at [facility] and had xrays done. She was splinted and referred here. She is not having any pain right now. This happened 02/04/11. documented in this encounter Miscellaneous Notes * Miscellaneous Scans - Document, Scanned - 05/11/2011 6:56 PM CDT documented in this encounter Plan of Treatment Scheduled Orders Name Type Priority Associated Diagnoses Orde r Schedule CAST REMOVAL Procedures Routine Injury of right ankle Ordered: 02/09/2011 documented as of this encounter Visit Diagnoses Diagnosis Injury of right ankle Injury, other and unspecified, knee, leg, ankle, and foot documented in this encounter Care Teams Laborer Adjustable Steel Joist Relationship Specialty Start Date End Date Sam Riojas license in 2016 PCP - General 02/05/11 09/23/16 documented as of this encounter
--- OUTSIDE RECORDS SUMMARY | 2024-08-23 23:22 | XMS_ITS | Encounter Summary ---
Author Organization [facility] Address [address] [place] [address] Care Team Providers Care Rental Clerk Tool And Equipment Name Role Phone Sam Riojas Primary Care Provider Dimitry valdovinos Reason for Visit * Reason Comments Injury Wrist right wrist Encounter Details Date Type Department Care Team (Latest Contact Info) Description 05/02/2014 1:00 PM CDT - 05/02/2014 11:59 PM CDT Hospital Encounter [facility] Pediatrics - Orthopedics [address] [place], [place] [id number] Natalie Villafuerte MD [address] [place] [id number] Discharge Disposition: Home or Self Care Social [...] - Inhaled Oxygen Concentration - - Weight 44.5 kg (98 lb 0.6 oz) 05/02/2014 1:18 PM CDT Height 136 cm (4' 5.54 ) 05/02/2014 1:18 PM CDT Body Mass Index 24.04 05/02/2014 1:18 PM CDT Body Mass Index Percentile 96.32% 05/02/2014 1:1 8 PM CDT Growth Chart: [facility] (Girls, 2- 20 Years) documented in this encounter Discharge Instructions * Patient Instructions* Leonora Pelaez PA - 05/02/2014 1:33 PM CDT ORTHOPAEDIC CLINIC DISCHARGE INSTRUCTIONS SHEET Follow Up: Please make a return appointment for 1 week(s) - X-rays at [facility] priorto appointment Limit strenuous activity--no running, jumping, playground equipment, physical education activities,sports activities until released. School excuse: 05/02/2014 Tylenol or Motrin (over the counter medication) [...] as of this encounter Progress Notes * Leonora Pelaez PA - 05/02/2014 1:31 PM CDT PEDIATRIC ORTHOPAEDIC CLINIC NOTE NAME: Cammy Bullock DATE OF SERVICE: 05/02/2014 DATE: 2005 PCP: Sam Riojas HISTORY: Cammy Bullock is a 8 y.o. 8 m.o. female who presents 1 day(s) status post a right forearm injury she sustained rollerskating. Cammy Bullock was splinted at [place] [facility] and presents forfurther evaluation. The patient rates her pain as a 0 out of 10. The patient denies new onset of numbness in her upper extremities. She has a history of a right proximal radius fracture 3 months ago that we treated with a cast followed by a velcro splint. She was last seen in our clinic on 03/07/14 and was instructed to follow up in 1 month. They did not return for their follow up appointment. MEDICATIONS: Current outpatient prescriptions:IBUPROFEN PO, Take by mouth as needed., Disp: , Rfl: , ALLERGIES: Allergies as of 05/02/2014 - reviewed 05/02/2014 Allergen Reaction Noted ??? Augmentin 02/09/2011 ??? Bee venom Swelling 10/26/2012 IMMUNIZATIONS: Immunization status: stated as current, but no records available. ROS: A 12 point review of systems was obtained today and is positive for what is stated above. PHYSICAL EXAMINATION: Wt 98 lb 0.6 oz (44.471 kg) BMI 24.04 kg/m2 General appearance: alert, cooperative, no distress. She [...] performed out of splint/cast Skin: normal Swelling: mild in the proximal forearm Tenderness: severe, located proximal radial shaft. Deformity: No ROM: limited by pain Gait: normal Neurological Exam: normal Vascular Exam: normal RADIOGRAPHS: AP and lateral xrays of the right forearm were assessed today from [place] [facility]. -Radiographic Assessment: They show proximal third radial shaft re-fracture. ASSESSMENT: 1. Fracture of right radius, closed, with routine healing, subsequent encounter PLAN: We recommend the patient go into a long arm cast today. The patient tolerated this well. Castcare and fracture precautions were reviewed today. The patient will stay out of PE/sports until further notice. The patient will follow up in 1 week(s) and get an AP and lateral xray of the right forearm in the cast at [facility] on their way to the appointment (family has order). Darren call in the interim with questions or concerns. * Glenda Quinonez - 05/02/2014 1:19 PM CDT 05/01/2014 was roller skating and fell on right out stretched hand. Went to [facility]. X rays taken and placed in splint. No pain today. documented in this encounter Plan of Treatment Not on file documented as of this encounter Visit Diagnoses Diagnosis Fracture of right radius, closed, with routine healing, subsequent encounter- Primary Other closed fractures of distal end of radius (alone) documented in this encounter Care Teams Rental Clerk Tool And Equipment Relationship Specialty Start Date End Date Sam Riojas license in 2016 PCP - General 02/05/11 09/23/16 documented as of this encounter
--- OUTSIDE RECORDS SUMMARY | 2024-08-23 23:44 | XMS_ITS | Encounter Summary ---
Author Organization [facility] Address [address] [address] Care Team Providers Care Ring Rolling Machine Operator Name Role Phone Sam Riojas Primary Care Provider Dimitry valdovinos Reason for Visit * Reason Comments Injury Ankle Encounter Details Date Type Department Care Team (Latest Contact Info) Description 11/02/2011 9:15 AM VETERINARY ASSISTANT - 11/02/2011 11:59 PM VETERINARY ASSISTANT Hospital Encounter [facility] Pediatrics - Orthopedics [address] [place] [address] Discharge Disposition: Home or Self Care Social [...] Mark Peck PA-C - 11/02/2011 9:43 AM VETERINARY ASSISTANT ORTHOPAEDIC CLINIC DISCHARGE INSTRUCTIONS SHEET Follow [...] make a clinic appointment, please call . RINARY ASSISTANT documented in this encounter Medications at [...] there, and for her to see her Mis Director, Dr. Riojas, for further evaluation for other possible reasons for her to not weight bear at home, or at school (since she is reportedly still using a wheel chair while at school). We will see her back as needed. They will call in the interim with any questions/concerns. RINARY ASSISTANT * Ira Jain RN - 11/02/2011 9:31 AM CST Patient here for follow-up. Complaining of intense pain,but not showing any outward signs. Ramesh Peck made aware of 10 scoring of pain per patient. Pain medication was given by Mom at 0800. RINARY ASSISTANT documented in this encounter Miscellaneous Notes * Miscellaneous Scans - Document, Scanned - 11/30/2011 10:12 AM CDT documented in this encounter Plan of Treatment Not on file documented as of this encounter Visit Diagnoses Not on filedocumented in this encounter Care Teams Ring Rolling Machine Operator Relationship Specialty Start Date End Date Sam Riojas license in 2016 PCP - General 02/05/11 09/23/16 documented as of this encounter
--- OUTSIDE RECORDS SUMMARY | 2024-08-23 23:44 | XMS_ITS | Encounter Summary ---
Author Organization [facility] Address [address] [place] [address] Care Team Providers Care Data Support Analyst Name Role Phone Sam Riojas Primary Care Provider Dimitry valdovinos Reason for Visit * Hospital - Outpatient (Routine) - Closed Specialty Diagnoses / Procedures Referred By Johnna hills Referred To Contact Procedure Suites Procedures ID CLOSED RX RADIAL SHAFT FX,MANIPULATN [address] [id number] Cg Special Procedures [address] [place] [id number] Referral ID Status Reason Start Date Expiration Date Visits Re quested Visits Authorized [id number] Closed 05/10/2014 06/09/2014 1 1 Encounter Details Date Type Department Care Team (Latest Contact Info) Description 05/14/2014 1:00 PM CDT - 05/14/2014 3:07 PM CDT Hospital Encounter [facility] - Procedure Suites [address] [place] [id number] Juan Manuel Bueno MD [address] [place] [address] [address] [facility] [place] [address] Discharge Disposition: Home or Self [...] radius, closed, with routine healing, subsequent encounter [[id number]] Follow up with Primary Care Provider (PCP) [...] not put anything inside cast. May use [id number] Benadryl as needed for itching. documented in [...] questions please call: Dept: special procedures Phone #:[phone] ext [phone] If unable to contact the department, seek medical care from your it program auditor or [facility]. documented in this encounter Medications at [...] radius, closed, with routine healing, subsequent encounter [facility] Procedure Report NAME: Cammy Bullock : 2005 DATE OF OPERATION: 05/14/2014 ATTENDING SURGEON: Jua nManuel Bueno MD PCP: Sam Riojas Preprocedural Diagnosis: Closed right radius fracture. ICD-9 CODE 813.21 Postprocedural Diagnosis: same Procedure: 1. Closed reduction right radius fracture. CPT CODE 60361 2. Application long arm cast Surgeon: Juan [...] CDT PROCEDURAL SEDATION NOTE Cammy Bullock 2005 [id number] Evaluated By: Renée Juarez MD, 05/14/2014 Cammy [...] Manuel Bueno MD ? 05/14/2014 ??5:14 PM [facility] Procedure Report NAME: ??Cammy Bullock : ??2005 DATE OF OPERATION: ??05/14/2014 ATTENDING SURGEON: ??Juan Manuel Bueno MD PCP: Sam Riojas Preprocedural Diagnosis: Closed right radius fracture. ICD-9 CODE 813.21 Postprocedural Diagnosis: same Procedure: 1. Closed reduction right radius fracture. CPT CODE 32776 2. Application long arm cast Surgeon: Juan [...] mL/hr documented in this encounter Care Teams Data Support Analyst Relationship Specialty Start Date End Date Sam Riojas license in 2016 PCP - General 02/05/11 09/23/16 documented as of this encounter
--- OUTSIDE RECORDS SUMMARY | 2024-08-23 23:44 | XMS_ITS | Encounter Summary ---
Author Organization [facility] Address [address] [address] [place] [address] Care Team Providers Care Supervisor Television Chassis Repair Name Role Phone Sam Riojas Primary Care Provider Dimitry valdovinos Encounter Details Date Type Department Care Team (Latest Contact Info) Description 05/28/2014 8:48 AM CDT - 05/28/2014 11:59 PM CDT Hospital Encounter [facility] Pediatrics - Radiology [address] [place] [address] Juana Larson MD Discharge Disposition: Home or [...] Primary documented in this encounter Care Teams Supervisor Television Chassis Repair Relationship Specialty Start Date End Date Sam Riojas license in 2016 PCP - General 02/05/11 09/23/16 documented as of this encounter
--- OUTSIDE RECORDS SUMMARY | 2024-08-23 23:44 | XMS_ITS | Encounter Summary ---
Author Organization [facility] Address [address] [place] [address] Care Team Providers Care Explosive Ordnance Technician Name Role Phone Sam Riojas Primary Care Provider Dimitry valdovinos Encounter Details Date Type Department Care Team (Latest Contact Info) Description 05/14/2014 3:08 PM CDT - 05/14/2014 11:59 PM CDT Hospital Encounter [facility] Pediatrics - Radiology [address] [place] [address] Fawn Pascal MD [address] [place] [address] Discharge Disposition: Home or Self Care Social [...] Manuel Bueno MD ? 05/14/2014 ??5:14 PM [employer] [facility] Procedure Report NAME: ??Cammy Bullock : ??2005 DATE OF OPERATION: ??05/14/2014 ATTENDING SURGEON: ??Juan Manuel Bueno MD PCP: Sam Riojas Preprocedural Diagnosis: Closed right radius fracture. ICD-9 CODE 813.21 Postprocedural Diagnosis: same Procedure: 1. Closed reduction right radius fracture. CPT CODE 93223 2. Application long arm cast Surgeon: Juan [...] Primary documented in this encounter Care Teams Explosive Ordnance Technician Relationship Specialty Start Date End Date Sam Riojas license in 2016 PCP - General 02/05/11 09/23/16 documented as of this encounter
--- OUTSIDE RECORDS SUMMARY | 2024-08-23 23:44 | XMS_ITS | Encounter Summary ---
Author Organization [facility] Address [address] [facility] [place] [address] Care Team Providers Care Poultry Sexer Name Role Phone Sam Riojas Primary Care Provider Dimitry valdovnios Reason for Visit * Reason Comments Injury Ankle Right ankle Encounter Details Date Type Department Care Team (Latest Contact Info) Description 10/26/2012 9:15 AM DRAFTER TOPOGRAPHICAL - 10/26/2012 11:59 PM DRAFTER TOPOGRAPHICAL Hospital Encounter [facility] Pediatrics - Orthopedics [address] [place] [address] Leonora Pelaez PA [address] [place] [address] Discharge Disposition: Home or Self Care Social [...] Leonora Pelaez PA - 10/26/2012 9:57 AM DRAFTER TOPOGRAPHICAL ORTHOPAEDIC CLINIC DISCHARGE INSTRUCTIONS SHEET Follow Up: [...] make a clinic appointment, please call . TER TOPOGRAPHICAL documented in this encounter Medications at Time of Discharge Medication Sig Dispensed Refills Start Date End Date Ibuprofen (IBU-200 PO) Take 100 mg by mouth. 11/23/2012 documented as of this encounter Progress Notes * Glenda Quinonez - 10/26/2012 11:37 AM CST Applied [facility] Right side. Cast Care instructions given to patient and family. They acknowledged understanding. TER TOPOGRAPHICAL * Leonora Pelaez PA - 10/26/2012 9:48 AM CST PEDIATRIC ORTHOPAEDIC CLINIC NOTE NAME: Cammy Bullock DATE OF SERVICE: 10/26/2012 DATE: 2005 PCP: Sam Riojas Chief Complaint Patient presents with ??? Injury Ankle Right ankle HISTORY: Cammy Bullock is a 7 y.o. 2 m.o. female who presents 5 day(s) status post a right ankleinjury. Cammy Bullock was splinted at [facility] and presents for further evaluation. The patient [...] in the interim with questions or concerns. TER TOPOGRAPHICAL * Glenda Quinonez - 10/26/2012 9:23 AM CST Was playing with father and got on his back and fell over hitting right ankle on bed. 10/21/2012 went to [facility] taken and was put in air cast. Was rubbing so removed 10/25/2012. Pt was using crutches that were at home. TER TOPOGRAPHICAL documented in this encounter Miscellaneous Notes * Miscellaneous Scans - Document, Scanned - 11/23/2012 12:33 PM CDT documented in this encounter Plan of Treatment Not on file documented as of this encounter Visit Diagnoses Diagnosis Pain in joint, ankle and foot documented in this encounter Care Teams Poultry Sexer Relationship Specialty Start Date End Date Sam Riojas license in 2016 PCP - General 02/05/11 09/23/16 documented as of this encounter
--- OUTSIDE RECORDS SUMMARY | 2024-08-23 23:44 | XMS_ITS | Patient Health Summary ---
Author Organization [facility] Address [address] [place] [address] Care Team Providers Care Field Property Loss Specialist Name Role Phone Jaylen Cazares MD Primary Care Provider [phone] Note from [facility],non-owned Affiliates and Associated Physician Practices is amultiple site organization consisting of ambulatory clinics and hospital sitesin [place], [place], [place] and [place]. This disclosure is being madepursuant to the Care Everywhere program and may not contain all information available regarding this patient. Last updated 18.[facility] Allergies * Augmentin * Bee Venom(Swelling) Medications * Be aware that medications may not be up to date on this document. Alwaysverify current medications with the patient. * ibuprofen (MOTRIN) 200 MG tablet Take by mouth every 6 hours as needed for Pain * Etonogestrel-Ethinyl Estradiol ([facility]) Active Problems Problem Noted Date Diagnosed [...] Comments Blood Pressure 122/62 08/05/2020 5:34 PM BOATING SAFETY OFFICER Pulse 88 08/05/2020 5:34 PM BOATING SAFETY OFFICER Temperature 36.8 ??C (98.2 ??F) 08/05/2020 5:34 PM CS T Respiratory Rate 18 08/05/2020 5:34 PM BOATING SAFETY OFFICER Oxygen Saturation 98% 08/05/2020 5:34 PM BOATING SAFETY OFFICER Inhaled Oxygen Concentration - - Weight 79.4 kg (175 lb) 08/05/2020 5:34 PM BOATING SAFETY OFFICER Height 139.8 cm (4' 7.04 ) 07/18/2014 [...] SARS-COV-2 PCR QUAL ([facility]) (08/05/2020 5:42 PM BOATING SAFETY OFFICER) SARS-CoV-2 FABIAN Detected( A) Not Detected [employer] INSURANCE BILL Comment: This nucleic acid amplification test was developed and its performance characteristics determined by [employer]. Nucleic acid amplification tests include PCR and [...] NASOPHARYNGEAL STRUCTURE / Unknown 08/05/2020 5:42 PM BOATING SAFETY OFFICER 08/06/2020 Narrative Resulting Agency Comment Lab Testing performed at: [facility] ?? [facility] [phone] Zachary Gillespie [facility] - MICROBIOLOG Y ORDERABLES [facility] INSURANCE BILL [address] [place] [address] * STREP A SCREEN - POINT OF CARE (AMB) ST[facility] (08/05/2020 5:36 PM BOATING SAFETY OFFICER) Strep A Rapid POCT Negative Negative [facility] Strep A Internal Control Present [facility] Lot # [id number] [facility] Expiration Date 08 04 2021 [facility] Throat ENTIRE THROAT (SURFACE REGION OF NECK) / Unknown 08/05/2020 5:36 PM BOATING SAFETY OFFICER Zachary Gillespie [facility] - POINT OF CA RE ORDERABLES [facility] [address] [phone] * INFLUENZA A+B - POINT OF CARE (AMB) (08/05/2020 5:36 PM BOATING SAFETY OFFICER) Influenza A Antigen Rapid Negative Negative [facility] Influenza B Antigen Rapid Negative Negative [facility] Influenza Internal Control present NEGATIVE - POSITIVE [facility] Influenza Lot Number [id number] [facility] Influenza Expiration Date 08 10 2021 [facility] Other NASOPHARYNGEAL SWAB / Unknown 08/05/2020 5:36 PM BOATING SAFETY OFFICER Zachary Gillespie EXPOSURE MACHINE OPERATOR-ACID PUMP OPERATOR LAB - POINT OF CA RE ORDERABLES [facility] [address] [place], [place] [address] [phone] * XR FOREARM 2 VW RIGHT (05/28/2014 [...] * IMAGING/RADIOLOGY/XRAY RESULTS ORDER (08/09/2012 1:41 PM BOATING SAFETY OFFICER) Only the most recent of4 resultswithin the time period is included. Anatomical Region Laterality Modality Other Narrative 08/09/2012 1:41 PM BOATING SAFETY OFFICER Procedure Note Document, Scanned - 08/09/2012 1:41 PM CST Scanned Document IMAGING Care Teams Field Property Loss Specialist Relationship Specialty Start Date End Date Jaylen Cazares MD [address] [address] PCP - General Family Medicine 09/24/16
--- OUTSIDE RECORDS SUMMARY | 2024-08-23 23:44 | XMS_ITS | Referral Summary ---
Author Organization [facility] Address [address] [facility] [place] [address] Care Team Providers Care Ion Implant Machine Operator Name Role Phone Jaylen Cazares MD Primary Care Provider [phone] Source Comments [facility],non-[facility] Affiliates and Associated Physician Practices is amultiple site organization consisting of ambulatory clinics and hospital sitesin [place], [place], [place] and [place]. This disclosure is being madepursuant to the Care Everywhere program and may not contain all information available regarding this patient. Last updated 18.[facility] Allergies Active Allergy Reactions Criticality Noted Date [...] as needed for Pain Active Etonogestrel-Ethinyl Estradiol ([facility]) Active Active Problems Problem Noted [...] Comments Blood Pressure 122/62 08/05/2020 5:34 PM TALENT BUYER Pulse 88 08/05/2020 5:34 PM TALENT BUYER Temperature 36.8 ??C (98.2 ??F) 08/05/2020 5:34 PM CS T Respiratory Rate 18 08/05/2020 5:34 PM TALENT BUYER Oxygen Saturation 98% 08/05/2020 5:34 PM TALENT BUYER Inhaled Oxygen Concentration - - Weight 79.4 kg (175 lb) 08/05/2020 5:34 PM TALENT BUYER Height 139.8 cm (4' 7.04 ) 07/18/2014 1:17 PM CS T Body Mass Index - - Plan of Treatment Not on file Care Teams Ion Implant Machine Operator Relationship Specialty Start Date End Date Jaylen Cazares MD [address] [facility] [address] [place] [address] PCP - General Family Medicine 09/24/16
--- OUTSIDE RECORDS SUMMARY | 2024-08-23 23:44 | XMS_ITS | Encounter Summary ---
Author Organization [facility] Address [address] [place] [address] Care Team Providers Care Programming Director Name Role Phone Sam Riojas Primary Care Provider Dimitry valdovinos Reason for Visit * Reason Comments Cast problem cast rubbing Encounter Details Date Type Department Care Team (Latest Contact Info) Description 05/21/2014 10:30 AM CDT - 05/21/2014 11:59 PM CDT Hospital Encounter [facility] Pediatrics - Orthopedics [address] [place], [place] [id number] Natalie Villafuerte MD [address] [place] [address] Mark Peck PA-C [address] [place] [address] Discharge Disposition: Home or Self Care Social [...] Primary documented in this encounter Care Teams Programming Director Relationship Specialty Start Date End Date Sam Riojas license in 2016 PCP - General 02/05/11 09/23/16 documented as of this encounter
--- OUTSIDE RECORDS SUMMARY | 2024-08-23 23:44 | XMS_ITS | Encounter Summary ---
Author Organization [facility] Address [address] [facility] [place] [address] Care Team Providers Care Grain Combine Driver Name Role Phone Sam Riojas Primary Care Provider Dimitry valdovinos Reason for Visit * Reason Comments Injury Elbow left elbow fracture Encounter Details Date Type Department Care Team (Latest Contact Info) Description 02/10/2012 9:45 AM CDT - 02/10/2012 11:59 PM CDT Hospital Encounter [facility] Pediatrics - Orthopedics [address] [place] [address] Leonora Pelaez PA [address] [place] [address] Discharge Disposition: Home or Self Care Social [...] unspecified documented in this encounter Care Teams Grain Combine Driver Relationship Specialty Start Date End Date Sam Riojas license in 2017 PCP - General 02/05/11 09/23/16 documented as of this encounter
--- OUTSIDE RECORDS SUMMARY | 2024-08-23 23:44 | XMS_ITS | Encounter Summary ---
Author Organization [facility] Address [address] [facility] [place] [address] Care Team Providers Care Acid Extractor Name Role Phone Sam Riojas Primary Care Provider Dimitry valdovinos Reason for Visit * Reason Comments Injury Elbow left Encounter Details Date Type Department Care Team (Latest Contact Info) Description 06/22/2012 1:00 PM CDT - 06/22/2012 11:59 PM CDT Hospital Encounter [facility] Pediatrics - Orthopedics [address] [place] [address] Natalie Villafuerte MD [address] [place] [address] Discharge Disposition: Home or Self Care Social [...] arm documented in this encounter Care Teams Acid Extractor Relationship Specialty Start Date End Date Sam Riojas license in 2016 PCP - General 02/05/11 09/23/16 documented as of this encounter
--- OUTSIDE RECORDS SUMMARY | 2024-08-23 23:44 | XMS_ITS | Encounter Summary ---
Author Organization [facility] Address [address] [place] [address] Care Team Providers Care Director Of In Service Education Name Role Phone Sam Riojas Primary Care Provider Dimitry valdovinos Reason for Visit * Reason Comments Fracture Arm oop, xray Encounter Details Date Type Department Care Team (Latest Contact Info) Description 08/01/2012 10:45 AM RUSSET REPAIRER - 08/01/2012 11:59 PM RUSSET REPAIRER Hospital Encounter [facility] Pediatrics - Orthopedics [address] [facility] [address] [place] [address] Mark Peck PA-C [address] [place] [address] Discharge Disposition: Home or Self Care Social [...] Mark Peck PA-C - 08/01/2012 11:43 AM RUSSET REPAIRER ORTHOPAEDIC CLINIC DISCHARGE INSTRUCTIONS SHEET Follow Up: [...] make a clinic appointment, please call . ET REPAIRER documented in this encounter Medications at Time [...] this plan and will follow up PRN. ET REPAIRER * Evette Wei - 08/01/2012 11:31 AM CST Removed LAC right. Skin dry and intact. ET REPAIRER * Ira Jain RN - 08/01/2012 10:51 AM CST Patient complaining of pain level of an eight. Mom gave her ibu 100 mg this am. Verbally made S. Hietpas aware of pain level. Awaiting any orders given thereafter. ET REPAIRER documented in this encounter Procedure Notes * [place], Scanned - 08/09/2012 1:41 PM CSTAssociated Order(s): IMAGING/RADIOLOGY/XRAY RESULTS ORDER ET REPAIRER documented in this encounter Plan of Treatment Not on file documented as of this encounter Procedures Procedure Name Priority Date/Time Associated Diagnosis Comments IMAGING/RADIOLOGY/X RAY RESULTS ORDER 08/09/2012 1:41 PM RUSSET REPAIRER documented in this encounter Results * IMAGING/RADIOLOGY/XRAY RESULTS ORDER (08/09/2012 1:41 PM RUSSET REPAIRER) Anatomical Region Laterality Modality Other Narrative 08/09/2012 1:41 PM RUSSET REPAIRER Procedure Note Document, Scanned - 08/09/2012 1:41 PM CST Scanned Document IMAGING documented in this encounter Visit Diagnoses Diagnosis Injury of right elbow Injury, other and unspecified, elbow, forearm, and wrist Pain in joint, upper arm documented in this encounter Care Teams Director Of In Service Education Relationship Specialty Start Date End Date Sam Riojas license in 2017 PCP - General 02/05/11 09/23/16 documented as of this encounter
--- OUTSIDE RECORDS SUMMARY | 2024-08-23 23:44 | XMS_ITS | Encounter Summary ---
Author Organization [facility] Address [address] [place] [address] Care Team Providers Care Area Operations Director Name Role Phone Sam Riojas Primary Care Provider Dimitry valdovinos Reason for Visit * Reason Comments Fracture Arm Encounter Details Date Type Department Care Team (Latest Contact Info) Description 01/25/2012 1:19 PM CDT - 01/25/2012 11:59 PM CDT Hospital Encounter [facility] Pediatrics - Orthopedics [address] [place] [address] Discharge Disposition: Home or Self Care Social [...] of humerus Return appointment: 3 weeks Call [phone], option [phone], for return if your child has new symptoms or problems, or if you have concerns. Call [phone] for questions. Physicians orders: Keep cast clean and dry. Do not insert any objects into cast. Call for urgent appointment if cast gets wet or object is stuck in cast - [phone]. Medications prescribed: none Activity Restrictions: No sports [...] elbow injury. Cammy Bullock was splinted at [facility] and presents for further evaluation. The patient [...] area falling on left arm. Taken to [facility] for xrays and soft casting. Here for further treatment. documented in this encounter Miscellaneous Notes * Miscellaneous Scans - Document, Scanned - 05/16/2012 10:03 AM CDT documented in this encounter Plan of Treatment Not on file documented as of this encounter Visit Diagnoses Diagnosis Supracondylar fracture of humerus Closed fracture of supracondylar humerus documented in this encounter Care Teams Area Operations Director Relationship Specialty Start Date End Date Sam Riojas license in 2016 PCP - General 02/05/11 09/23/16 documented as of this encounter
--- OUTSIDE RECORDS SUMMARY | 2024-08-23 23:44 | XMS_ITS | Encounter Summary ---
Author Organization [facility] Address [address] [place] [address] Care Team Providers Care Senior Interactive Producer Name Role Phone Sam Riojas Primary Care Provider Dimitry valdovinos Encounter Details Date Type Department Care Team (Late st Contact Info) Description 06/17/2014 Orders Only [facility] Pediatrics - Orthopedics [address] [facility] [address] [place] [address] Natalie Villafuerte MD [address] [place] [address] Closed fracture of right radius, with [...] Primary documented in this encounter Care Teams Senior Interactive Producer Relationship Specialty Start Date End Date Sam Riojas license in 2017 PCP - General 02/05/11 09/23/16 documented as of this encounter
--- OUTSIDE RECORDS SUMMARY | 2024-08-23 23:44 | XMS_ITS | Encounter Summary ---
Author Organization [facility] Address [address] [facility] [place] [address] Care Team Providers Care Supervisor Drying And Winding Name Role Phone Sam Riojas Primary Care Provider Dimitry valdovinos Reason for Visit * Reason Comments Follow-up right radius fx Encounter Details Date Type Department Care Team (Latest Contact Info) Description 05/09/2014 1:00 PM CDT - 05/09/2014 11:59 PM CDT Hospital Encounter [facility] Pediatrics - Orthopedics [address] [place] [address] [place] [address] Natalie Villafuerte MD [facility] [place] [address] Discharge Disposition: Home or Self Care Social [...] an appointment, please call and notify In ID clinic - Yes X-Rays next visit- Yes [...] your child's office visit, call Aurelia at [phone], ext. [phone]. If you have a question for the orthopaedic nurse, call [phone], ext. [phone]. After visit summary completed by Natalie Villafuerte MD. documented in this encounter Medications at Time of Discharge Medication Sig Dispensed Refills Start Date End Date IBUPROFEN PO Take by mouth as needed. documented as of this encounter Progress Notes * Natalie Villafuerte MD - 05/09/2014 1:13 PM CDT PEDIATRIC ORTHOPAEDIC CLINIC NOTE NAME: Cammy Bullock DATE OF SERVICE: (Not on file) [...] (alone) documented in this encounter Care Teams Supervisor Drying And Winding Relationship Specialty Start Date End Date Sam Riojas license in 2016 PCP - General 02/05/11 09/23/16 documented as of this encounter
--- OUTSIDE RECORDS SUMMARY | 2024-08-23 23:44 | XMS_ITS | Encounter Summary ---
Author Organization [facility] Address [address] [place] [address] Care Team Providers Care Director Of Epidemiology Name Role Phone Jaylen Cazares MD Primary Care Provider [phone] Encounter Details Date Type Department Care Team [...] on filedocumented in this encounter Care Teams Director Of Epidemiology Relationship Specialty Start Date End Date Jaylen Cazares MD [address] [place] [address] PCP - General Family Medicine 09/24/16 documented as of this encounter
--- OUTSIDE RECORDS SUMMARY | 2024-08-23 23:44 | XMS_ITS | Encounter Summary ---
Author Organization [facility] Address [address] [place] [address] Care Team Providers Care Publicity Writer Name Role Phone Jaylen Cazares MD Primary Care Provider [phone] Encounter Details Date Type Department Care Team (Late st Contact Info) Description 06/14/2020 10:30 AM CDT - 06/14/2020 12:30 PM CDT Hospital Encounter [facility] Pediatrics [address] [place] [address] Sushil Ro MD [facility] [place] [address] Emergency Medicine Discharge Disposition: Home or Self [...] encounter documented in this encounter Care Teams Publicity Writer Relationship Specialty Start Date End Date Jaylen Cazares MD [address] [place] [id number] PCP - General Family Medicine 09/24/16 documented as of this encounter
--- OUTSIDE RECORDS SUMMARY | 2024-08-23 23:44 | XMS_ITS | Encounter Summary ---
Author Organization [facility] Address [address] [place] [address] Care Team Providers Care Office Rn Name Role Phone Jaylen Cazares MD Primary Care Provider [phone] Encounter Details Date Type Department Care Team (Latest Contact Info) Description 05/05/2021 1:00 PM CDT - 05/05/2021 11:59 PM CDT Hospital Encounter [facility] at [address] [address] Ewa Beard MD [address] [place] [address] Discharge Disposition: Home or Self Care Social [...] unspecified documented in this encounter Care Teams Office Rn Relationship Specialty Start Date End Date Jaylen Cazares MD [address] [facility] [address] [facility] [address] [place] [phone] PCP - General Family Medicine 09/24/16 documented as of this encounter
--- OUTSIDE RECORDS SUMMARY | 2024-08-23 23:44 | XMS_ITS | Encounter Summary ---
Author Organization [facility] Address [address] [place] [address] Care Team Providers Care Platform Worker Name Role Phone Sam Riojas Primary Care Provider Dimitry valdovinos Reason for Visit * Reason Comments Follow-up right radius fractur e/xray/oop Encounter Details Date Type Department Care Team (Latest Contact Info) Description 07/18/2014 1:00 PM OVEREDGER - 07/18/2014 11:59 PM [facility] Hospital Encounter [facility] Pediatrics - Orthopedics [address] [place] [address] Natalie Villafuerte MD [address] [place] [address] Discharge Disposition: Home or Self Care Social [...] 46.7 kg (103 lb) 07/18/2014 1:17 PM OVEREDGER Height 139.8 cm (4' 7.04 ) 07/18/2014 1:17 PM CS T Body Mass Index 23.91 07/18/2014 1:17 PM OVEREDGER Body Mass Index Percentile 95.97% 07/18/2014 1:1 7 PM OVEREDGER Growth Chart: [facility] (Girls, 2- 20 Years) documented in this encounter Discharge Instructions * Patient Instructions* Natalie Villafuerte MD - 07/18/2014 1:47 PM OVEREDGER ORTHOPAEDIC CLINIC DISCHARGE INSTRUCTIONS SHEET DIAGNOSIS: No diagnosis found. Follow Up: No return appointment is needed, but call for return appointment if you have concerns oryour child has new symptoms or problems.. If you cannot keep an appointment, please call and [phone] ?? In [place] clinic - No ?? [...] your child's office visit, call Aurelia at [phone], ext. [phone]. If you have a question for the orthopaedic nurse, call [phone], ext. [phone]. After visit summary completed by Natalie Villafuerte MD. EDGER documented in this encounter Medications at Time of Discharge Medication Sig Dispensed Refills Start Date End Date IBUPROFEN PO Take by mouth as needed. documented as of this encounter Progress Notes * Sunshine Thibodeaux - 07/18/2014 3:26 PM CST Removed right SAC. Skin dry and intact. EDGER * Natalie Villafuerte MD - 07/18/2014 1:45 [...] in the interim with questions or concerns. EDGER documented in this encounter Plan of Treatment Not on file documented as of this encounter Visit Diagnoses Diagnosis Closed fracture of right radius, with routine healing, subsequent encounter- Primary Closed fracture of unspecified part of radius (alone) documented in this encounter Care Teams Platform Worker Relationship Specialty Start Date End Date Sam Riojas license in 2016 PCP - General 02/05/11 09/23/16 documented as of this encounter
--- OUTSIDE RECORDS SUMMARY | 2024-08-23 23:44 | XMS_ITS | Encounter Summary ---
Author Organization [facility] Address [address] [place] [address] Care Team Providers Care Ash Conveyor Operator Name Role Phone Jaylen Cazares MD Primary Care Provider [phone] Reason for Visit * Reason Comments Injury Knee right Encounter Details Date Type Department Care Team (Latest Contact Info) Description 01/17/2018 3:30 PM CDT - 01/17/2018 11:59 PM CDT Hospital Encounter [facility] Pediatrics - Orthopedics [address] [place] [address] Juana Larson MD Discharge Disposition: [...] was it treated: had xrays done at [facility] and put in knee immobilizer - Pain level 5 out of 10 taking otc motrin prn documented in this encounter Plan of Treatment Not on file documented as of this encounter Visit Diagnoses Diagnosis Right knee injury, initial encounter- Primary documented in this encounter Care Teams Ash Conveyor Operator Relationship Specialty Start Date End Date Jaylen Cazares MD [address] [facility] [address] [place] [address] PCP - General Family Medicine 09/24/16 documented as of this encounter
--- OUTSIDE RECORDS SUMMARY | 2024-08-23 23:44 | XMS_ITS | Encounter Summary ---
Author Organization [facility] Address [address] [facility] [place] [address] Care Team Providers Care Exceptional Children Teacher Name Role Phone Sam Riojas Primary Care Provider Dimitry valdovinos Reason for Visit * Reason Comments Evaluation right forearm fx Encounter Details Date Type Department Care Team (Latest Contact Info) Description 02/05/2014 1:00 PM CDT - 02/05/2014 11:59 PM CDT Hospital Encounter [facility] Pediatrics - Orthopedics [address] [place] [address] Juana Larson MD Discharge Disposition: Home or [...] encounter Yes Return appointment: 3 weeks Call [phone], option [phone], for return if your child has new symptoms or problems, or if you have concerns. Call [phone] for questions. Physicians orders: Keep cast clean [...] acknowledged understanding. * Juana Larson MD - 02/05/2014 1:58 PM CDT PEDIATRIC ORTHOPAEDIC CLINIC NOTE NAME: Cammy Bullock DATE OF SERVICE: 02/05/2014 DATE: 2005 PCP: Sam Riojas HISTORY: Cammy Bullock is a 8 y.o. 5 m.o. female who presents 3 day(s) status post a right forearm injury. Cammy Bullock was splinted at [facility] and presents for further evaluation. The patient [...] injuring her right forearm. She went to [facility] for xrays and soft cast. She [...] Primary documented in this encounter Care Teams Exceptional Children Teacher Relationship Specialty Start Date End Date Sam Riojas license in 2016 PCP - General 02/05/11 09/23/16 documented as of this encounter
--- OUTSIDE RECORDS SUMMARY | 2024-08-23 23:44 | XMS_ITS | Clinical Summary ---
Author Organization [facility] Address [address] [place] [address] Care Team Providers Care Director Product Development Name Role Phone Jaylen Cazares MD Primary Care Provider [phone] Source Comments [facility] Affiliates and Associated Physician Practices is amultiple site organization consisting of ambulatory clinics and hospital sitesin [place], [place], [place] and [place]. This disclosure is being madepursuant to the Care Everywhere program and may not contain all information available regarding this patient. Last updated 18.[facility] [employer] Allergies Active Allergy Reactions Criticality Noted Date [...] as needed for Pain Active Etonogestrel-Ethinyl Estradiol ([facility]) Active Active Problems Problem Noted Date Diagnosed [...] Comments Blood Pressure 122/62 08/05/2020 5:34 PM SOFTWARE APPLICATIONS SPECIALIST Pulse 88 08/05/2020 5:34 PM SOFTWARE APPLICATIONS SPECIALIST Temperature 36.8 ??C (98.2 ??F) 08/05/2020 5:34 PM CS T Respiratory Rate 18 08/05/2020 5:34 PM SOFTWARE APPLICATIONS SPECIALIST Oxygen Saturation 98% 08/05/2020 5:34 PM SOFTWARE APPLICATIONS SPECIALIST Inhaled Oxygen Concentration - - Weight 79.4 kg (175 lb) 08/05/2020 5:34 PM SOFTWARE APPLICATIONS SPECIALIST Height 139.8 cm (4' 7.04 ) 07/18/2014 [...] age to complete this topic Care Teams Director Product Development Relationship Specialty Start Date End Date Jaylen Cazares MD [address] [facility] [address] [facility] [address] [place] [address] PCP - General Family Medicine 09/24/16
--- OUTSIDE RECORDS SUMMARY | 2024-08-23 23:44 | XMS_ITS | Encounter Summary ---
Author Organization [facility] Address [address] [facility] [place] [address] Care Team Providers Care Qc Scientist Name Role Phone Sam Riojas Primary Care Provider Dimitry valdovinos Reason for Visit * Reason Comments Follow-up oop then xray Encounter Details Date Type Department Care Team (Latest Contact Info) Description 03/07/2014 1:00 PM CDT - 03/07/2014 11:59 PM CDT Hospital Encounter [facility] Pediatrics - Orthopedics [facility] [place] [address] Natalie Villafuerte MD [address] [place] [address] Discharge Disposition: Home or Self Care Social [...] 03/07/2014 1:2 7 PM CDT Growth Chart: [facility] (Girls, 2- 20 Years) documented [...] encounter documented in this encounter Care Teams Qc Scientist Relationship Specialty Start Date End Date Sam Riojas license in 2016 PCP - General 02/05/11 09/23/16 documented as of this encounter
--- OUTSIDE RECORDS SUMMARY | 2024-08-23 23:44 | XMS_ITS | Encounter Summary ---
Author Organization [facility] Address [address] [facility] [place] [address] Care Team Providers Care Nursery Supervisor Name Role Phone Jaylen Cazares MD Primary Care Provider [phone] Reason for Visit * Reason Onset Date Comments Results 08/08/2020 Encounter Details Date Type Department Care Team (Late st Contact Info) Description 08/08/2020 Telephone [facility] [employer] [facility] AT [address] [phone] Zachary Gillespie APRN-CNP [address] [place] [address] Results Social History Tobacco Use [...] Uriah Pearson APRN-CNP - 08/08/2020 2:03 PM MACHINE STEMMER See note on lab INE STEMMER * Telephone Encounter - Treva Child - 08/08/2020 1:03 PM CST Who is calling? Parents Shanta Yes on Hippa What is the reason for call? Mom request result from daughter covid 19 test. Expected Response from the Clinic? (Please give Shanta a call back to advise [phone]. Thank you INE STEMMER documented in this encounter Plan of Treatment Not on file documented as of this encounter Visit Diagnoses Not on filedocumented in this encounter Additional Health Concerns Infection Onset Date Last Indicated Resolved Time COVID-19 Under Investigation 08/05/2020 08/05/2020 08/08/2020 12:10 PM MACHINE STEMMER COVID-19 Confirmed 08/05/2020 08/05/2020 0 4:35 AM MACHINE STEMMER documented as of this encounter Care Teams Nursery Supervisor Relationship Specialty Start Date End Date Jaylen Cazares MD [address] [place] [phone] PCP - General Family Medicine 09/24/16 documented as of this encounter
--- OUTSIDE RECORDS SUMMARY | 2024-08-23 23:44 | XMS_ITS | Encounter Summary ---
Author Organization [facility] Address [address] [place] [address] Care Team Providers Care Neon Sign Installer Name Role Phone Sam Riojas Primary Care Provider Dimitry valdovinos Reason for Visit * Reason Comments Follow-up oop Encounter Details Date Type Department Care Team (Latest Contact Info) Description 06/20/2014 1:06 PM CDT - 06/20/2014 11:59 PM CDT Hospital Encounter [facility] Pediatrics - Orthopedics [address] [place], [place] [id number] Natalie Villafuerte MD [facility] [place] [address] Discharge Disposition: Home or Self Care Social [...] 06/20/2014 1:2 6 PM CDT Growth Chart: [facility] [...] a question for the orthopaedic nurse, call [phone], ext. [phone]. After visit summary completed by [...] in the interim with questions or concerns. K CATCHER documented in this encounter Plan of Treatment Not on file documented as of this encounter Visit Diagnoses Diagnosis Closed fracture of right radius, with routine healing, subsequent encounter- Primary documented in this encounter Care Teams Neon Sign Installer Relationship Specialty Start Date End Date Sam Riojas license in 2016 PCP - General 02/05/11 09/23/16 documented as of this encounter
--- OUTSIDE RECORDS SUMMARY | 2024-08-23 23:44 | XMS_ITS | Encounter Summary ---
Author Organization [facility] Address [address] [place] [address] Care Team Providers Care Lens Inserter Name Role Phone TristanjerilynSam julien Primary Care Provider Dimitry valdovinos Reason for Visit * Reason Comments Injury Ankle Right ankle injury f ollow up. Encounter Details Date Type Department Care Team (Latest Contact Info) Description 11/23/2012 12:57 PM CDT - 11/23/2012 11:59 PM CDT Hospital Encounter [facility] Pediatrics - Orthopedics [address] [place] [address] Natalie Villafuerte MD [address] [place] [address] Discharge Disposition: Home or Self Care Social [...] fibula documented in this encounter Care Teams Lens Inserter Relationship Specialty Start Date End Date Sam Riojas license in 2016 PCP - General 02/05/11 09/23/16 documented as of this encounter
--- OUTSIDE RECORDS SUMMARY | 2024-08-23 23:44 | XMS_ITS | Encounter Summary ---
Author Organization [facility] Address [address] [facility] [place] [address] Care Team Providers Care Rubber Press Tender Name Role Phone Jaylen Cazares MD Primary Care Provider [phone] Reason for Visit * Reason Comments URI Encounter Details Date Type Department Care Team (Late st Contact Info) Description 08/05/2020 5:20 PM ELECTRIC CRANE OPERATOR Office Visit [facility] AT [address] [phone] Provider, Shelley Laird [place] Nasopharyngitis acute (Primary Dx) Social History Tobacco [...] Comments Blood Pressure 122/62 08/05/2020 5:34 PM ELECTRIC CRANE OPERATOR Pulse 88 08/05/2020 5:34 PM ELECTRIC CRANE OPERATOR Temperature 36.8 ??C (98.2 ??F) 08/05/2020 5:34 PM CS T Respiratory Rate 18 08/05/2020 5:34 PM ELECTRIC CRANE OPERATOR Oxygen Saturation 98% 08/05/2020 5:34 PM ELECTRIC CRANE OPERATOR Inhaled Oxygen Concentration - - Weight 79.4 kg (175 lb) 08/05/2020 5:34 PM ELECTRIC CRANE OPERATOR Height - - Body Mass Index - - documented in this encounter Patient Instructions * Patient Instructions* Zachary Gillespie, BUSINESS SYSTEMS ADMINISTRATOR-HARBOR DEPARTMENT MANAGER - 08/05/2020 5:45 PM ELECTRIC CRANE OPERATOR Images from the original note were not included. Patient Education Cold Symptoms in Children CLINICAL SUPPORT NURSE: A common cold is caused by a [...] or manage other symptoms. Do not give ahgt-tmg-gqxjewr cough or cold medicines to children younger [...] ask them during your visits. ?? Copyright June [employer] 2019 Information is for End User's use only and may not be sold, redistributed or otherwise used for commercial purposes. All illustrations and images included in CareNotes?? are the copyrighted property of [employer].A[employer] Inc[employer] or [employer] The above information is an custodial aide only. It is not intended as medical advice for individual conditions or treatments. Talk to your doctor, nurse or pharmacist before following any medical regimen to see if it is safe and effective for you. TRIC CRANE OPERATOR documented in this encounter Progress Notes * [...] encounter (Office Visit) with Provider, Shelley Exp [place] Medication Sig ??? Etonogestrel-Ethinyl Estradiol ([facility]) Past Medical History: Diagnosis Date ??? Radius [...] Strep A Internal Control Present Lot # [id number] Expiration Date 08 04 2021 INFLUENZA A+B [...] CDC. (Select all that apply) Answer: Chills [[id number]] Order Specific Question: Symptoms as described by CDC. (Select all that apply) Answer: Cough [[id number]] Order Specific Question: Symptoms as described by CDC. (Select all that apply) Answer: Nasal congestion [[id number]] Order Specific Question: Symptoms as described by CDC. (Select all that apply) Answer: Headache [[id number]] Order Specific Question: Symptoms as described by CDC. (Select all that apply) Answer: Runny nose [[id number]] Order Specific Question: Symptoms as described by CDC. (Select all that apply) Answer: Sore throat [[id number]] Order Specific Question: Hospitalized for COVID-19? Answer: [...] Specific Question: Release to patient Answer: Immediate TRIC CRANE OPERATOR documented in this encounter Plan of Treatment Not on file documented as of this encounter Procedures Procedure Name Priority Date/Time Associated Diagnosis Comments COVID-19 SARS-COV-2 PCR QUAL ([facility]) Routine 08/05/2020 5:42 PM ELECTRIC CRANE OPERATOR Nasopharyngitis acute STREP A SCREEN - POINT OF CARE (AMB) STL Routine 08/05/2020 5:36 PM ELECTRIC CRANE OPERATOR Nasopharyngitis acute INFLUENZA A+B - POINT OF CARE (AMB) Routine 08/05/2020 5:36 PM ELECTRIC CRANE OPERATOR Nasopharyngitis acute documented in this encounter Results * (ABNORMAL) COVID-19 SARS-COV-2 PCR QUAL ([facility]) (08/05/2020 5:42 PM ELECTRIC CRANE OPERATOR) SARS-CoV-2 FABIAN Detected( A) Not Detected [facility] INSURANCE BILL Comment: This nucleic acid amplification test was developed and its performance characteristics determined by [facility]. Nucleic acid amplification tests include PCR and [...] NASOPHARYNGEAL STRUCTURE / Unknown 08/05/2020 5:42 PM ELECTRIC CRANE OPERATOR 08/06/2020 Narrative Resulting Agency Comment Lab Testing performed at: [facility] [address] ?? [place] [phone] Zachary Gillespie BUSINESS SYSTEMS ADMINISTRATOR-HARBOR DEPARTMENT MANAGER LAB - MICROBIOLOG Y ORDERABLES [facility] INSURANCE BILL [address] [place] [address] * INFLUENZA A+B - POINT OF CARE (AMB) (08/05/2020 5:36 PM ELECTRIC CRANE OPERATOR) Influenza A Antigen Rapid Negative Negative [facility] Influenza B Antigen Rapid Negative Negative [facility] Influenza Internal Control present NEGATIVE - POSITIVE [facility] Influenza Lot Number [id number] [facility] Influenza Expiration Date 08 10 2021 [facility] Other NASOPHARYNGEAL SWAB / Unknown 08/05/2020 5:36 PM ELECTRIC CRANE OPERATOR Delprakash Jose Miguel [facility] - POINT OF CA RE ORDERABLES [facility] [address] [phone] * STREP A SCREEN - POINT OF CARE (AMB) STL (08/05/2020 5:36 PM ELECTRIC CRANE OPERATOR) Strep A Rapid POCT Negative Negative [facility] Strep A Internal Control Present [facility] Lot # [id number] [facility] Expiration Date 08 04 2021 [facility] Throat ENTIRE THROAT (SURFACE REGION OF NECK) / Unknown 08/05/2020 5:36 PM ELECTRIC CRANE OPERATOR Zachary Gillespie APRN-[facility] - POINT OF CA RE ORDERABLES Performing Organization Address City/[facility]/ZIP Co de Phone Number [facility] [address] [place] [address] documented in this encounter Visit Diagnoses Diagnosis Nasopharyngitis acute- Primary Acute nasopharyngitis (common cold) documented in this encounter Additional Health Concerns Infection Onset Date Last Indicated Resolved Time COVID-19 Under Investigation 08/05/2020 08/05/2020 08/08/2020 12:10 PM ELECTRIC CRANE OPERATOR documented as of this encounter Care Teams Rubber Press Tender Relationship Specialty Start Date End Date Jaylen Cazares MD [address] [facility] [address] [place] [address] PCP - General Family Medicine 09/24/16 documented as of this encounter
--- OUTSIDE RECORDS SUMMARY | 2024-08-23 23:44 | XMS_ITS | Encounter Summary ---
Author Organization [facility] Address [address] [facility] [place] [address] Care Team Providers Care Cut Order Hand Name Role Phone Sam Riojas Primary Care Provider Dimitry valdovinos Reason for Visit * Reason Comments Injury Elbow left JENNY fx Encounter Details Date Type Department Care Team (Latest Contact Info) Description 03/07/2012 12:57 PM CDT - 03/07/2012 11:59 PM CDT Hospital Encounter [facility] Pediatrics - Orthopedics [address] [place], [place] [id number] Juana Larson MD Discharge Disposition: Home or [...] unspecified documented in this encounter Care Teams Cut Order Hand Relationship Specialty Start Date End Date Sam Riojas license in 2017 PCP - General 02/05/11 09/23/16 documented as of this encounter
--- OUTSIDE RECORDS SUMMARY | 2024-08-23 23:44 | XMS_ITS | Encounter Summary ---
Author Organization [facility] Address [address] [facility] [place] [address] Care Team Providers Care Life Insurance Sales Name Role Phone Sam Riojas Primary Care Provider Dimitry valdovinos Encounter Details Date Type Department Care Team (Latest Contact Info) Description 05/07/2014 9:52 AM CDT - 05/07/2014 11:59 PM CDT Hospital Encounter [facility] Pediatrics - Orthopedics [address] [place] [address] Mark Peck, PAMaxC [address] [place] [phone] Discharge Disposition: Home or Self Care Social [...] on filedocumented in this encounter Care Teams Life Insurance Sales Relationship Specialty Start Date End Date Sam Riojas license in 2016 PCP - General 02/05/11 09/23/16 documented as of this encounter
--- OUTSIDE RECORDS SUMMARY | 2024-08-23 23:44 | XMS_ITS | Encounter Summary ---
Author Organization [facility] Address [address] [place] [address] Care Team Providers Care Transcription Coordinator Name Role Phone Sam Riojas Primary Care Provider Dimitry valdovinos Reason for Visit * Reason Comments Fracture Arm f/u right arm fractu re Encounter Details Date Type Department Care Team (Latest Contact Info) Description 05/28/2014 8:30 AM CDT - 05/28/2014 8:47 AM CDT Hospital Encounter [facility] Pediatrics - Orthopedics [address] [place] [address] Juana Larson MD Discharge Disposition: Home or [...] weeks with xrays in the cast Call [phone], option 1, for return if your child has new symptoms or problems, or if you have concerns. Call [phone] for questions. Physicians orders: Keep cast clean [...] Primary documented in this encounter Care Teams Transcription Coordinator Relationship Specialty Start Date End Date Sam Riojas license in 2016 PCP - General 02/05/11 09/23/16 documented as of this encounter
--- OUTSIDE RECORDS SUMMARY | 2024-08-23 23:44 | XMS_ITS | Encounter Summary ---
Author Organization [facility] Address [address] [facility] [place] [address] Care Team Providers Care Solution Maker Name Role Phone Sam Riojas Primary Care Provider Dimitry valdovinos Reason for Visit * Reason Comments Injury Wrist right wrist Encounter Details Date Type Department Care Team (Latest Contact Info) Description 05/02/2014 1:00 PM CDT - 05/02/2014 11:59 PM CDT Hospital Encounter [facility] Pediatrics - Orthopedics [address] [place], [place] [phone] Natalie Villafuerte MD [address] [place] [address] Discharge Disposition: Home or Self Care Social [...] 05/02/2014 1:1 8 PM CDT Growth Chart: [facility] (Girls, 2- 20 Years) documented in this encounter Discharge Instructions * Patient Instructions* Leonora Pelaez PA - 05/02/2014 1:33 PM CDT ORTHOPAEDIC CLINIC DISCHARGE INSTRUCTIONS SHEET Follow Up: Please make a return appointment for 1 week(s) - X-rays at [facility] priorto appointment Limit strenuous activity--no running, jumping, [...] sustained rollerskating. Cammy Bullock was splinted at [facility] and presents forfurther evaluation. The patient [...] the right forearm were assessed today from [facility]. -Radiographic Assessment: They show proximal third [...] the right forearm in the cast at [facility] on their way to the appointment (family has order). Darren call in the interim with questions or concerns. * Glenda Quinonez - 05/02/2014 1:19 PM CDT 05/01/2014 was roller skating and fell on right out stretched hand. Went to [facility]. X rays taken and placed in splint. No pain today. documented in this encounter Plan of Treatment Not on file documented as of this encounter Visit Diagnoses Diagnosis Fracture of right radius, closed, with routine healing, subsequent encounter- Primary Other closed fractures of distal end of radius (alone) documented in this encounter Care Teams Solution Maker Relationship Specialty Start Date End Date Sam Riojas license in 2016 PCP - General 02/05/11 09/23/16 documented as of this encounter
--- OUTSIDE RECORDS SUMMARY | 2024-08-23 23:44 | XMS_ITS | Encounter Summary ---
Author Organization [facility] Address [address] [place] [address] Care Team Providers Care Gun Stock Maker Name Role Phone Sam Riojas Primary Care Provider Dimitry valdovinos Reason for Visit * Reason Comments Injury Foot right foot injury Encounter Details Date Type Department Care Team (Latest Contact Info) Description 05/22/2013 1:00 PM CDT - 05/22/2013 11:59 PM CDT Hospital Encounter [facility] Pediatrics - Orthopedics [address] [place] [address] Juana Larson MD Discharge Disposition: Home or [...] right Yes Return appointment: As needed Call [phone], option 1, for return if your child has new symptoms or problems, or if you have concerns. Call [phone] for questions. Physicians orders: Wear hard soled [...] [facility] foot. [facility]. She was given [...] limb documented in this encounter Care Teams Gun Stock Maker Relationship Specialty Start Date End Date Sam Riojas license in 2016 PCP - General 02/05/11 09/23/16 documented as of this encounter
--- OUTSIDE RECORDS SUMMARY | 2024-08-23 23:45 | XMS_ITS | Encounter Summary ---
Author Organization [facility] Address [address] [place] [address] Care Team Providers Care Linoleum Layer Helper Name Role Phone Sam Riojas Primary Care Provider Dimitry valdovinos Reason for Referral * Evaluate & Treat Specialty Diagnoses / Procedures [facility] Referred To Contact Juan Manuel Bueno MD [address] [place] [address] [address] [place] [address] Referral ID Status Reason Start Date Expiration Date V isits Requested Visits Authorized Specialty Services Required Scheduling Instructions 2-3 times a week, 4 weeks Instruct in home exercise program ICIST [facility] * Specialty Diagnoses / Procedures [facility] By [facility] Referred To Contact [address] [address] Referral ID Status Reason Start Date Expiration Date Visits Re quested Visits Authorized [facility] Reason for Visit * Reason Comments Follow-up right ankle injury Encounter Details Date Type Department Care Team (Latest Contact Info) Description 07/20/2011 9:30 AM PHYSICIST [facility] - 07/20/2011 11:59 PM PHYSICIST [facility] Hospital Encounter [facility] Pediatrics - Orthopedics [address] [place] [address] [place] [address] Discharge Disposition: Home or Self Care Social History Tobacco Use Types Packs/Day Years Used Date Smoking Tobacco: Never Assessed Sex and Gender Information Value Date Recorded Sex Assigned at Not on file Gender Identity Not on file Sexual Orientation Not on file documented as of this encounter Discharge Instructions * Patient Instructions* Mark Peck PA-C - 07/20/2011 10:02 AM PHYSICIST [facility] CLINIC DISCHARGE INSTRUCTIONS SHEET Follow Up: [...] make a clinic appointment, please call . ICIST [facility] documented in this encounter Medications at Time [...] down her cast. She was seen at [facility] where her cast was removed and [...] in the interim with questions or concerns. ICIST [facility] * Evette Wei - 07/20/2011 9:33 AM [...] wont put weight on her right leg. ICIST [employer]ID STATE documented in this encounter Miscellaneous Notes * Miscellaneous Scans - Document, Scanned - 08/19/2011 7:07 PM CST ICIST [employer] STATE documented in this encounter Plan of Treatment [...] foot documented in this encounter Care Teams Linoleum Layer Helper Relationship Specialty Start Date End Date Sam Riojas license in 2017 PCP - General 02/05/11 09/23/16 documented as of this encounter
--- OUTSIDE RECORDS SUMMARY | 2024-08-23 23:45 | XMS_ITS | Encounter Summary ---
Author Organization [facility] Address [address] [facility] [address] [place] [address] Care Team Providers Care College Professor Name Role Phone Sam Riojas Primary Care Provider Dimitry valdovinos Encounter Details Date Type Department Care Team (Latest Contact Info) Description 07/01/2011 1:25 PM CDT - 07/01/2011 1:30 PM CDT Hospital Encounter [facility] Pediatrics - Orthopedics [address] [place] [address] Discharge Disposition: Home or Self Care Social [...] keep previously scheduled follow up appointment at [facility]. Limit strenuous activity--no running, jumping, playground [...] previously scheduled follow up visit at the [place] office and get an AP, lateral, and mortise xray of the right ankle out of the cast. They will call in the interim with questions or concerns. documented in this encounter Miscellaneous Notes * Miscellaneous Scans - Document, Scanned - 08/06/2011 5:49 AM CST CE AUTOMATION CLERK documented in this encounter Plan of Treatment Not on file documented as of this encounter Visit Diagnoses Diagnosis Ankle injury Injury, other and unspecified, knee, leg, ankle, and foot documented in this encounter Care Teams College Professor Relationship Specialty Start Date End Date Sam Riojas license in 2016 PCP - General 02/05/11 09/23/16 documented as of this encounter
--- OUTSIDE RECORDS SUMMARY | 2024-08-23 23:45 | XMS_ITS | Encounter Summary ---
Author Organization [facility] Address [address] [facility] [place] [address] Care Team Providers Care Vacuum System Tester Name Role Phone Sam Riojas Primary Care Provider Dimitry valdovinos Reason for Visit * Reason Comments Follow-up right ankle injury Encounter Details Date Type Department Care Team (Latest Contact Info) Description 03/16/2011 11:00 AM CDT - 03/16/2011 11:59 PM CDT Hospital Encounter [facility] Pediatrics - Orthopedics [address] [place], [place] [id number] Discharge Disposition: Home or Self Care Social [...] foot documented in this encounter Care Teams Vacuum System Tester Relationship Specialty Start Date End Date Sam Riojas license in 2016 PCP - General 02/05/11 09/23/16 documented as of this encounter
--- OUTSIDE RECORDS SUMMARY | 2024-08-23 23:45 | XMS_ITS | Continuity of Care Document ---
Author Organization [facility] Address [address] [place] [address] [place] [address] Phone Care Team Providers Care Crozer Operator Name Role Phone Jaylen Cazares MD Unavailable [...] Copied on Encounter OFFICE/OUTPA TIENT VISIT, EST [facility], [address], [place], [address], tel:[phone] [facility] suicide thought1 (chief complaint) DepressionSuicidal ideations 0 Sage York. [address], [facility] [place], [address]. tel:[phone] [facility], [address], [place], [address], [place] tel:[phone] [facility] No Information 0 Sage Schwartz [address], [address], [place], [address]. tel:[phone] OFFICE/OUTPA TIENT VISIT, EST [facility], [address], [place], [address], tel:[phone] [facility] otitis media1 (chief complaint) Acute serous otitis media, bilateral Mar-0 5-202 0 [address] York. [address], [address], [place], [address]. tel:[phone] Referring Provider: Jaylen Cazares, [address], [place], [address]. tel:[phone] PREV VISIT, EST, AGE 12-17 [facility], [address], [place], [address], [place] tel:[phone] [facility] Physical (chief complaint) Encntr for routine child health exam w/o abnormal findings May-0 201 9 [address] York. [address], [address], [place], [place], On license of [facility]. tel:[phone] Referring Provider: Bijal Singleton [address], [place], [address]. tel:[phone] OFFICE/OUTPA TIENT VISIT, EST [facility], [address], [place], [address], [place] tel:[phone] [facility] headache1 (chief complaint) Headache 8 S[address] York. [address], [address], [place], [address]. tel:[phone] Referring Provider: Bijal Singleton [address], [place], [address]. tel:[phone] OFFICE/OUTPA TIENT VISIT, EST [facility], [address], [place], [address], tel:[phone] [facility] neck pain1 (chief complaint) asthma1 (chief complaint) allergy1 (chief complaint) neck pain1 (chief complaint) Mild persistent asthmaBee allergy status 7 Sage York. [address], [address], [place], [address]. tel:[phone] Referring Provider: Jaylen Cazares, [address], [place], [address]. tel:[phone] PREV VISIT, EST, AGE 12-17 [facility], [address], [place], [address], [place] tel:[phone] [facility] PHysical (chief complaint) Encntr for routine child health exam w/o abnormal findings 7 S[address] York. [address], [address], [place], [address]. tel:[phone] Referring Provider: Bijal Singleton [address], [place], [address]. tel:[phone] PREV VISIT, NEW, AGE 5-11 [facility], [address], [place], [address], [place] tel:[phone] [facility] Physical (chief complaint) Encntr for routine child health exam w/o abnormal findings 6 S[address] York. [address], [address], [place], [address]. tel:[phone] Referring Provider: Bijal Singleton [address], [place], [address]. tel:[phone] Family History Family Member Type Diagnosis Age At Onset Father Problem (finding) Alive and well Brother Problem (finding) Alive and well Mother Problem (finding) Alive and well Payers Payer name Insurance type Covered constitution party ID Authoriza tion(s) No Information Social [...] complaints Instructions Date Instruction Additional Infor mation Weight control education Related to Body mass index (BMI) 31.0-31.9, adult Increase physical activity Relat ed to Encntr for routine child health exam w/o abnormal findings Diet and exercise Related to Hea dache Increase physical activity Relat ed to Mild persistent asthma Assessments Type Assessment Date assessment Depression assessment Suicidal ideations Mental Status Date Cognitive Assessment Orientation - [place] ed to time, place, person, situation.
--- OUTSIDE RECORDS SUMMARY | 2024-08-23 23:45 | XMS_ITS | Encounter Summary ---
Author Organization [facility] Address [address] [facility] [place] [address] Care Team Providers Care Proposal Manager Name Role Phone Sam Riojas Primary Care Provider Dimitry valdovinos Reason for Visit * Reason Comments Injury Foot right foot fx Encounter Details Date Type Department Care Team (Latest Contact Info) Description 02/09/2011 10:29 AM CDT - 02/09/2011 11:59 PM CDT Hospital Encounter [facility] Pediatrics - Orthopedics [address] [place], [place] [id number] Discharge Disposition: Home or Self Care Social [...] 11:18 AM CDT Removed SAC right. * Mrak Peck PA-C - 02/09/2011 10:48 AM CDT 02/09/2011 HISTORY: Cammy Bullock is a 5 y.o. 5 m.o. female who presents 5 day(s) status post a right ankleinjury. She reportedly was running and hit her ankle on a wagon wheel that was in the yard. Jose Manuel Bullock was splinted at [facility] and presents for further evaluation. [...] a wagon wheel. She was seen at [facility] and had xrays done. She [...] foot documented in this encounter Care Teams Proposal Manager Relationship Specialty Start Date End Date Sam Riojas license in 2016 PCP - General 02/05/11 09/23/16 documented as of this encounter
--- OUTSIDE RECORDS SUMMARY | 2024-08-23 23:45 | XMS_ITS | Encounter Summary ---
Author Organization [facility] Address [address] [place] [address] Care Team Providers Care Roll Up Machine Operator Name Role Phone Sam Riojas Primary Care Provider Dimitry valdovinos Reason for Visit * Reason Comments Injury Ankle Encounter Details Date Type Department Care Team (Latest Contact Info) Description 06/22/2011 9:50 AM CDT - 06/22/2011 11:59 PM CDT Hospital Encounter [facility] Pediatrics - Orthopedics [address] [facility] [place] [address] Discharge Disposition: Home or Self [...] concrete block. Cammy Bullock was seen at [facility] and placed into an [...] mortise xrays of the right ankle from [place] show soft tissue swelling laterally but no [...] weeks while chasing dog she fell onto [email or web address]. Taken to [place] for x[place] that same night. Sent home in air cast. documented in this encounter Miscellaneous Notes * Miscellaneous Scans - Document, Scanned - 08/03/2011 8:11 PM CST TRY FARM LABORER * Miscellaneous Scans - Document, Scanned - 08/03/2011 8:01 PM CST TRY FARM LABORER documented in this encounter Plan of Treatment [...] foot documented in this encounter Care Teams Roll Up Machine Operator Relationship Specialty Start Date End Date Sam Riojas license in 2017 PCP - General 02/05/11 09/23/16 documented as of this encounter
--- OUTSIDE RECORDS SUMMARY | 2024-08-23 23:45 | XMS_ITS | Encounter Summary ---
Author Organization [facility] Address [address] [facility] [place] [address] Care Team Providers Care Facilities Project Manager Name Role Phone Sam Riojas Primary Care Provider Dimitry valdovinos Reason for Referral * Evaluate & Treat Specialty Diagnoses / Procedures Referred By Johnna hills Referred To Contact [address] [address] Referral ID Status Reason Start Date Expiration Date Visits Re quested Visits Authorized Scheduling Instructions 2-3 times a week, 2-3 weeks OR INFORMATION SECURITY ARCHITECT Reason for Visit * Reason Comments Injury Ankle Multiple falls, xray s done 2 weeks ago Encounter Details Date Type Department Care Team (Latest Contact Info) Description 10/05/2011 9:15 AM SENIOR INFORMATION SECURITY ARCHITECT - 10/05/2011 11:59 PM SENIOR INFORMATION SECURITY ARCHITECT Hospital Encounter [facility] Pediatrics - Orthopedics [facility] [facility] [place] [address] Discharge Disposition: Home or Self Care Social History Tobacco Use Types Packs/Day Years Used Date Smoking Tobacco: Never Assessed Sex and Gender Information Value Date Recorded Sex Assigned at Not on file Gender Identity Not on file Sexual Orientation Not on file documented as of this encounter Discharge Instructions * Patient Instructions* Mark Peck PA-C - 10/05/2011 9:38 AM SENIOR INFORMATION SECURITY ARCHITECT ORTHOPAEDIC CLINIC DISCHARGE INSTRUCTIONS SHEET Follow Up: [...] make a clinic appointment, please call . OR INFORMATION SECURITY ARCHITECT documented in this encounter Medications at Time [...] Mom states that they saw someone at [facility], and their work up was reportedly negative. She had been doing well until someone fell on her ankle about 2 weeks ago. After having pain for a few days, she was seen at [facility] for xrays on 09/23/11. The xrays were [...] call in the interim with any questions/concerns. OR INFORMATION SECURITY ARCHITECT documented in this encounter Miscellaneous Notes * Miscellaneous Scans - Document, Scanned - 10/27/2011 11:18 AM CST OR INFORMATION SECURITY ARCHITECT documented in this encounter Plan of Treatment Scheduled Referrals Name Type Priority Associated Diagnoses Orde r Schedule AMB REFERRAL TO PHYSICAL THERAPY Outpatient Referral Routine Injury of right ankle Ordered: 10/05/2011 documented as of this encounter Visit Diagnoses Diagnosis Injury of right ankle Injury, other and unspecified, knee, leg, ankle, and foot documented in this encounter Care Teams Facilities Project Manager Relationship Specialty Start Date End Date Sam Riojas license in 2016 PCP - General 02/05/11 09/23/16 documented as of this encounter
--- OUTSIDE RECORDS SUMMARY | 2024-08-23 23:45 | XMS_ITS | Encounter Summary ---
Author Organization [facility] Address [address] [place] [address] Care Team Providers Care It Technician Name Role Phone Sam Riojas Primary Care Provider Dimitry valdovinos Encounter Details Date Type Department Care Team (Latest Contact Info) Description 08/03/2011 2:11 PM ANALYST SALES - 08/03/2011 11:59 PM [facility] Hospital Encounter [facility] Pediatrics - Orthopedics [address] [facility] [place] [address] Juana Larson MD Orthopedics Discharge Disposition: Home [...] limb documented in this encounter Care Teams It Technician Relationship Specialty Start Date End Date Sam Riojas license in 2016 PCP - General 02/05/11 09/23/16 documented as of this encounter
--- OUTSIDE RECORDS SUMMARY | 2024-08-23 23:45 | XMS_ITS | Encounter Summary ---
Author Organization [facility] Address [address] [facility] [place] [address] Care Team Providers Care Optical Technician Name Role Phone Sam Riojas Primary Care Provider Dimitry valdovinos Reason for Visit * Reason Comments Follow-up right ankle injury Encounter Details Date Type Department Care Team (Latest Contact Info) Description 08/10/2011 12:58 PM STUDENT ASSISTANT - 08/10/2011 11:59 PM STUDENT ASSISTANT Hospital Encounter [facility] Pediatrics - Orthopedics [address] [facility] [place] [address] Discharge Disposition: Home or Self Care Social History Tobacco Use Types Packs/Day Years Used Date Smoking Tobacco: Never Assessed Sex and Gender Information Value Date Recorded Sex Assigned at Not on file Gender Identity Not on file Sexual Orientation Not on file documented as of this encounter Discharge Instructions * Patient Instructions* Mark Peck PA-C - 08/10/2011 1:27 PM STUDENT ASSISTANT ORTHOPAEDIC CLINIC DISCHARGE INSTRUCTIONS SHEET Follow [...] make a clinic appointment, please call . ENT ASSISTANT documented in this encounter Medications at [...] if they decide to resume Physical Therapy. ENT ASSISTANT documented in this encounter Procedure Notes * Document, Scanned - 09/07/2011 11:14 AM CSTAssociated Order(s): IMAGING/RADIOLOGY/XRAY RESULTS ORDER ENT ASSISTANT documented in this encounter Miscellaneous Notes * Miscellaneous Scans - Document, Scanned - 09/08/2011 5:22 PM CST ENT ASSISTANT documented in this encounter Plan of Treatment Not on file documented as of this encounter Procedures Procedure Name Priority Date/Time Associated Diagnosis Comments IMAGING/RADIOLOGY/X RAY RESULTS ORDER 09/07/2011 11:14 AM STUDENT ASSISTANT documented in this encounter Results * IMAGING/RADIOLOGY/XRAY RESULTS ORDER (09/07/2011 11:14 AM STUDENT ASSISTANT) Anatomical Region Laterality Modality Other Narrative Transcriptions Document, Scanned - 09/07/2011 11:14 AM CST Scanned Document IMAGING documented in this encounter Visit Diagnoses Diagnosis Right ankle pain Pain in joint, ankle and foot documented in this encounter Care Teams Optical Technician Relationship Specialty Start Date End Date Sam Riojas license in 2017 PCP - General 02/05/11 09/23/16 documented as of this encounter
--- OUTSIDE RECORDS SUMMARY | 2024-08-23 23:45 | XMS_ITS | Encounter Summary ---
Author Organization [facility] Address [address] [facility] [place] [address] Care Team Providers Care Shingle Shearing Machine Operator Name Role Phone Sam Riojas Primary Care Provider Dimitry valdovinos Reason for Visit * Reason Comments Injury Ankle Not walking and swel ling of ankle Encounter Details Date Type Department Care Team (Latest Contact Info) Description 08/03/2011 2:10 PM WELL SERVICE DERRICK WORKER Hospital Encounter [facility] Pediatrics - Orthopedics [address] [facility] [address] [place] [address] Discharge Disposition: Home or Self Care Social History Tobacco Use Types Packs/Day Years Used Date Smoking Tobacco: Never Assessed Sex and Gender Information Value Date Recorded Sex Assigned at Not on file Gender Identity Not on file Sexual Orientation Not on file documented as of this encounter Discharge Instructions * Patient Instructions* Ira Jain RN - 08/03/2011 2:30 PM WELL SERVICE DERRICK WORKER ORTHOPAEDIC CLINIC DISCHARGE INSTRUCTIONS SHEET Follow Up: [...] appointment, please call . MRI is scheduled [id number] at [facility]. Please arrive at 1 pm for 2 pm test. SERVICE DERRICK WORKER documented in this encounter Medications at Time [...] that they are back early today because Cmamy is continuing to complain of a significant [...] will have this done on 08/08/11 at [facility] and we will call her with the results. If the MRI is negative, we will continue with physical therapy for ROM, strengthening exercises, and desensitization exercises to help alleviate her pain and encourage her weight bearing. She will stay out of PE until further notice. They will call in the interim with questions or concerns. SERVICE DERRICK WORKER documented in this encounter Plan of Treatment Not on file documented as of this encounter Visit Diagnoses Diagnosis Injury of right ankle Injury, other and unspecified, knee, leg, ankle, and foot documented in this encounter Care Teams Shingle Shearing Machine Operator Relationship Specialty Start Date End Date Sam Riojas license in 2016 PCP - General 02/05/11 09/23/16 documented as of this encounter
--- OUTSIDE RECORDS SUMMARY | 2024-08-23 23:45 | XMS_ITS | Encounter Summary ---
Author Organization [facility] Address [address] [facility] [place] [address] Care Team Providers Care Closing Machine Operator Name Role Phone Sam Riojas Primary Care Provider Dimitry valdovinos Reason for Visit * Reason Comments Follow-up right ankle injury Encounter Details Date Type Department Care Team (Latest Contact Info) Description 02/23/2011 10:30 AM CDT - 02/23/2011 11:59 PM CDT Hospital Encounter [facility] Pediatrics - Orthopedics [address] [facility] [place] [place] [address] Discharge Disposition: Home or Self Care Social [...] after that and was seen in [facility] ER for xrays. No new injuries were [...] foot documented in this encounter Care Teams Closing Machine Operator Relationship Specialty Start Date End Date Sam Riojas license in 2017 PCP - General 02/05/11 09/23/16 documented as of this encounter
--- OUTSIDE RECORDS SUMMARY | 2024-08-23 23:45 | XMS_ITS | Encounter Summary ---
Author Organization [facility] Address [address] [facility] [place] [address] Care Team Providers Care Security Officer Name Role Phone Sam Riojas Primary Care Provider Dimitry valdovinos Encounter Details Date Type Department Care Team (Latest Contact Info) Description 07/01/2011 1:31 PM CDT - 07/01/2011 11:59 PM CDT Hospital Encounter [facility] Pediatrics - Orthopedics [address] [place] [address] Desi Argueta MD RETIRED Orthopedics Discharge Disposition: [...] on filedocumented in this encounter Care Teams Security Officer Relationship Specialty Start Date End Date Sam Riojas license in 2016 PCP - General 02/05/11 09/23/16 documented as of this encounter
== END 2024-08-19 12:21 | disposition home or self-care (01) ==
PROVIDERS: Emergency Provider Nurse Practitioner; PCP Physician Assistant
DX: H66.93 Otitis media, unspecified, bilateral (principal); R06.2 Wheezing
CPT/HCPCS: 71046; 99213; G0463

== ENCOUNTER 2024-09-17 10:20 | Outpatient (CLI) | payer OTHER, SELFPAY | END 2024-09-17 10:21 | disposition home or self-care (01) | LOC: ANHAUDIO 10:20 | PROVIDERS: PCP Physician Assistant; Visit Provider Otolaryngology | DX: H74.01 Tympanosclerosis, right ear (principal); Z96.22 Myringotomy tube(s) status; H90.3 Sensorineural hearing loss, bilateral | CPT/HCPCS: 92557; 92567 ==

== ENCOUNTER 2025-06-17 09:45 | Emergency (ER) | payer OTHER, SELFPAY ==
--- NOTE | 2025-06-17 09:48 | ED.SKABFB ---
HPI - Skin/Abscess/Foreign Bdy General Chief complaint: Extremity Problem,Nontraumatic Stated complaint: Nail in foot Time Seen by Provider: 06/17/25 09:47 Source: patient Mode of arrival: ambulatory Limitations: no limitations History of Present Illness HPI narrative: Cammy is a 19-year-old female patient presenting to the clinic today with complaints of a puncture wound to her left foot. She reports she stepped on a nail that was stuck in a board. She was able to pull the nail out of her foot. Cleansed the area with peroxide last night. Last Tdap was in 2022. Rates pain 02/12. Does not feel as that the nail struck the bone. Has not taken anything for pain. Related Data Home Medications ?Medication ?Instructions ?Recorded ?Confirmed ?Last Taken ?Type epinephrine 0.3 mg/0.3 mL 0.3 ml IM PRN Anaphylaxis 07/28/21 08/23/23 Unknown History injection, auto-injector etonogestrel 0.12 mg-ethinyl See Rx Instructions .Route .COMPLEX 08/10/22 08/23/23 Unknown History estradiol 0.015 mg/24 hr vaginal ring (NuvaRing) Allergies Allergy/AdvReac Type Severity Reaction Status Date / Time venom-honey bee Allergy Severe Anaphylaxis Verified 06/17/25 09:47 AMOXICILLIN TRIHYDRATE AdvReac Intermediate Nausea and Uncoded 08/19/24 11:14 Vomiting POTASSIUM CLAVULANATE AdvReac Intermediate Nausea and Uncoded 08/19/24 11:14 Vomiting Review of Systems Review of Systems: Pertinent positives per HPI. Patient denies any fever, chills, rash, headache, visual changes, dizziness, cough, runny nose, sore throat, shortness of breath, chest pain, palpitations, nausea, vomiting, diarrhea, constipation, abdominal pain, or any urinary issues. [facility] Past Medical History Medical History No pertinent past medical history Surgical History Surgical History History of tympanostomy tube placement History of tonsillectomy Family History Family History Mother Family history non-contributory Social History Social History Smoking status: Never smoker Substance use: never Living arrangements: with family Gender identity (if verbalized by the patient): Female Comments At the time of my signature, I reviewed and agree with the nursing past medical, surgical, social, and family history. There is no relevant family history pertinent to the patient complaint. Exam Narrative: General: Well-developed, well nourished, in no apparent distress Head: Normocephalic, atraumatic. Cardio: Regular rate and rhythm, s1 and s2 normal, no murmur appreciated. Resp: Clear to auscultation bilaterally, no rhonchi, rales, wheezing or rubs. Integumentary: [place], warm, and dry, puncture wound to the plantar Course Course Emergency Course: Portions of this record may have been created with voice recognition software. Level of Care: Express Care Visit Vital Signs Vital signs: Vital Signs Temperature 36.8 C 06/17/25 09:54 Pulse Rate 78 06/17/25 09:54 Respiratory Rate 16 06/17/25 09:54 Blood Pressure 120/70 06/17/25 09:54 Pulse Oximetry 100 06/17/25 09:54 Temperature 36.8 C 06/17/25 09:54 Pulse Rate 78 06/17/25 09:54 Respiratory Rate 16 06/17/25 09:54 Blood Pressure 120/70 06/17/25 09:54 Pulse Oximetry 100 06/17/25 09:54 Vital signs reviewed MDM - Skin/Abscess/Foreign Bdy MDM Narrative Medical decision making narrative: At the time of visit patient is resting comfortably on the exam table. Patient appears to be nontoxic. Complaints of a puncture wound to her left foot. She reports she stepped on a nail that was stuck in a board. She was able to pull the nail out of her foot. Cleansed the area with peroxide last night. Last Tdap was in 2022. Rates pain 6/10. Does not feel as that the nail struck the bone. Has not taken anything for pain. On exam has a puncture wound to the left plantar midfoot below the 3rd and 4th toes. Plan: Patient has puncture wound to the left mid foot just below the 3rd and 4th toes. Her tetanus is UTD. Area is red, swollen, and erythemic. Will place patient on cephalexin to cover for bacterial infection. Signs and symptoms of worsening infection was reviewed with the patient. Supportive measures were discussed with the patient and they voiced understanding discharge instructions and agrees to treatment plan. Return precautions reviewed Differential Diagnosis Differential diagnosis: Likely cellulitis and other (Puncture wound, wound infection, foot fracture) Discharge Plan Discharge Clinical Impression: Puncture wound of foot, left Qualifiers: Encounter type: initial encounter Qualified Code(s): S91.332A - Puncture wound without foreign body, left foot, initial encounter Patient Disposition: Home Condition: Stable Instructions: Antibiotic Form, Puncture Wound in the Foot (ED) Additional Instructions: Tetanus is up to date. Increase fluids and stay well hydrated Take cephalexin as prescribed May apply Band-Aid with triple antibiotic ointment to the area twice daily for the next 48 hours Keep wound clean and dry. Watch for signs and symptoms of infection-increase in redness, streaking, swelling, purulent discharge, or increase in pain. Follow up with your PCP in 2-3 days for wound check Patient Language: Macedonian Prescriptions: New cephalexin 500 mg capsule 500 mg PO Q8H 7 Days Qty: 21 0RF No Action epinephrine 0.3 mg/0.3 mL auto-injector 0.3 ml IM PRN etonogestrel-ethinyl estradiol [NuvaRing] 0.12-0.015 mg/24 hr ring See Rx Instructions .ROUTE .COMPLEX Rx Instructions: 1 vag ring vaginally Follow-up/Referrals: Jose,ISAURA Perez [Primary Care Provider, Family Practice] Time of Disposition: 10:06 Quality NIHSS Nursing Documentation ED NIHSS nursing documentation: reviewed/agree
[2025-06-17 09:54] VITALS: BP 120/70; PULSE 78; RESP 16; TEMP 36.8; O2SAT 100
--- OUTSIDE RECORDS SUMMARY | 2025-06-17 10:29 | XMS_ITS | Clinical Summary ---
Author Organization [facility] Address [address] [place] [address] Care Team Providers Care Senior Accounting Associate Name Role Phone Jaylen Cazares MD Primary Care Provider [phone] Source Comments [facility],non-[facility] Affiliates and Associated Physician Practices is amultiple site organization consisting of ambulatory clinics and hospital sitesin [place], [place], [place] and [place]. This disclosure is being madepursuant to the Care Everywhere program and may not contain all information available regarding this patient. Last updated 18.[facility] [employer] Allergies Active Allergy Reactions Criticality Noted Date Comments Augmentin 02/09/2011 Bee Venom Swelling 10/26/2012 Bee stings Medications * Be aware that medications may not be up to date on this document. Alwaysverify current medications with the patient. ibuprofen (MOTRIN) 200 MG tablet Take by mouth every 6 hours as needed for Pain Active Etonogestrel-Eth inyl Estradiol ([facility]) Active Active Problems Problem Noted Date Diagnosed [...] drink = 0.6 oz pur e alcohol) Comments No Sex and Gender Information Value Date Recorded Sex Assigned at Not on file Legal Sex Female 5:43 AM [employer] GUIDE Gender Identity Not on file Sexual Orientation Not on file Last Filed Vital Signs Vital Sign Reading Time Taken Comments Blood Pressure 122/62 08/05/2020 5:34 PM [employer] GUIDE Pulse 88 08/05/2020 5:34 PM [employer]PINE GUIDE Temperature 36.8 C (98.2 F) 08/05/2020 5:34 PM ALPINE GUIDE Respiratory Rate 18 08/05/2020 5:34 PM ALPINE GUIDE Oxygen Saturation 98% 08/05/2020 5:34 PM ALPINE GUIDE Inhaled Oxygen Concentration - - Weight 79.4 kg (175 lb) 08/05/2020 5:34 PM ALPINE GUIDE Height 139.8 cm (4' 7.04) 07/18/2014 1:17 PM CS T Body Mass Index - - Plan of Treatment Health Maintenance Due Date Last Done Comments HIV SCREENING 2019 HPV VACCINE (1 - 3-dose series) 2019 CHLAMYDIA/GONORRHEA SCREENING 2020 MENINGOCOCCAL (Group B) VACC INE SHARED DECISION-MAKING (1 of 2 - Standard) 2020 HEPATITIS C SCREENING 08/17/2022 DTAP/TDAP/TD VACCINES (1 - Tdap) 2023 HEPATITIS B VACCINE (1 of 3 - 19+ 3-dose series) 2023 DEPRESSION SCREENING 09/05/2024 COVID-19 VACCINE (1 - 2023-2 5 season) 2025 INFLUENZA VACCINE (#1) 2025 ZOSTER VACCINE (1 of 2) 2054 HIB VACCINE Aged Out No longer eligi ble based on patient's age to complete this topic MENINGOCOCCAL GROUPS A/C/Y/W VACCINE Aged Out No longer eligible b ased on patient's age to complete this topic PNEUMOCOCCAL VACCINE Aged Out No long er eligible based on patient's age to complete this topic Insurance [facility] Care Teams Senior Accounting Associate Relationship Specialty Start Date End Date Jaylen Cazares MD [address] [place] [address] PCP - General Family Medicine 09/24/16
--- OUTSIDE RECORDS SUMMARY | 2025-06-17 10:29 | XMS_ITS | Data Portability ---
Author Organization [facility] Address [address] [place] [address] Care Team Providers Care Brake Repairer Air Name Role Phone LISA BERRIOS Primary Care Provider [phone] Assessment Encounter Date Assessment Date Assessment LastModified by Organization Details LastModified Time 11/05/2021 11/05/2021 Annual gynecological exam performed. Patient will come back in a year unless there are new symptoms. [email or web address] Not available 11/05/2021 15:11:37 10/05/2023 10/05/2023 Annual gynecological exam performed. Patient will come back in a year unless there are new symptoms. [email or web address] Not available 10/05/2023 14:59:48 Plan of Treatment Reminders Order Date Submit Date Provider Last Modified By Organization Details Last Modified Time Details Appointments None recorded. Lab test, urine 2021 022 [facility], [address], [address], [place], [address], 11:30:01 Referral None recorded. Procedures None recorded. Surgeries None recorded. Imaging None recorded. Medication Orders NuvaRing 0.12 mg-0.015 mg/24 hr vaginal 2024 025 [id number], [address], [place], [place], [id number], 5 12:36:50 NuvaRing 0.12 mg-0.015 mg/24 hr vaginal 2023 024 [facility] #[id number], [address], [place], [place], [id number], 4 15:29:04 NuvaRing 0.12 mg-0.015 mg/24 hr vaginal 2021 022 [facility] #[id number], [address], [place], [place], [id number], 2 15:10:40 Patient TargetsNo targets recorded. Patient InstructionsNo instructions recorded. Reason for Referral None Reported. Results Created Date Observation Date Name Description Value Unit Range Abnormal Flag Note LastModifiedBy Organization Detail LastModifiedTime 11/06/19 22 11/05/2021 pregn george test, urine HCG negati ve Not Available [facility] [address], [place], [address], 11/05/2021 15:10:41 Result Notes None recorded. Problems Name Problem SNOMED Code Status Onset Date Resolution Date Notes Provider Name and Address Organization Details Recorded Time Procedure by method Completed 201811/05/2021 Encounter for oth general cnsl and advice on contracept ion;Practi ce ID: [id number] Elaine Carcamo [facility] 2 14:34:38 Finding of regularit y of menstrual cycle Completed 201911/05/2021 Irregular menstruati on, unspecifie d;Recorded Elsewhere: No Locatio n: [facility] Amalia rce: EHR Chroni c: N Practice ID: [id number] Billa ble Time: 03:30:00 PM Elaine Carcamo [facility] 2 14:34:[address] Concept Completed 201911/05/2021 Encounter for other contracept juhi management ;Practice ID: 0001 Elaine apple [facility] 2 14:34:41 Problem Notes None recorded. Procedures Surgical History Date Name Laterality Status Provider Name and Address Organization Details Recorded Time operation on the ear completed [facility] 11/05/2021 14:53:07 procedure on adenoids completed [facility] 11/05/2021 14:53:16 closed reduction of fracture of upper limb completed [facility] 11/05/2021 14:53:33 Imaging Results None recorded. Procedure Notes None recorded. Medical Equipment None Reported. Allergies Allergen ID Allergen Name Allergen Category Reaction Reaction Severity Criticality Documentation Date Start Date Code Code System Note Provider Name and Address Organization Details Recorded Time 07823 Augmentin medicatio n Not available Not available Not available 11/05/2021 75003 2 [facility] 14:50:13 Medications Name Sig Start Date Stop Date Status Note LastModified by Organization Details LastModified Time azelastine 0.05 % eye drops 10/05 completed Not Available Not Available Not Available doxycycline hyclate 100 mg capsule TAKE 1 CAPSULE BY MOUTH TWICE DAILY 12/24 completed Not Available Not Available Not Available valacyclovi r 1 gram tablet 11/05 completed Not Available Not Available Not Available epinephrine (Jr) 0.15 mg/0.3 mL injection,a uto-injecto r Take by injection route. active Not Available Not Available No t Available topiramate 25 mg tablet 11/05 completed Not Available Not Available Not Available amoxicillin 875 mg tablet 11/05 completed Not Available Not Available Not Available cephalexin 500 mg capsule TAKE 1 CAPSULE BY MOUTH EVERY 8 HOURS FOR 7 DAYS 12/24 completed Not Available Not Available Not Available prednisone 50 mg tablet TAKE 1 TABLET BY MOUTH DAILY 12/24 completed Not Available Not Available Not Available omeprazole 20 mg capsule,del ayed release 11/05 completed Not Available Not Available Not Available ondansetron 4 mg disintegrat ing tablet 11/05 completed Not Available Not Available Not Available cefdinir 300 mg capsule TAKE 1 CAPSULE BY MOUTH EVERY 12 HOURS FOR 10 DAYS 12/24 completed Not Available Not Available Not Available fluticasone propionate 50 mcg/actuati on nasal spray,suspe nsion SHAKE LIQUID AND USE 2 SPRAYS IN EACH NOSTRIL EVERY DAY 12/24 completed Not Available Not Available Not Available neomycin-po lymyxin-hyd rocort 3.5 mg-10,000 unit/mL-1 % ear drops,susp SHAKE LIQUID AND INSTILL 4 DROPS TO AFFECTED EAR THREE TIMES DAILY FOR 4 DAYS 12/24 completed Not Available Not Available Not Available NuvaRing 0.12 mg-0.015 mg/24 hr vaginal INSERT 1 RING VAGINALLY FOR 3 WEEKS, THEN REPLACE WITH NEW RING, SKIPPING PLACEBO WEEK; FOR CONTINUOU S CYCLING. 2024 active Not Available Not Available Not Avai lable Vitals Date Recorded Body height Body mass index (BMI) Body mass index (BMI) [Percentile] Per age and sex Body weight Systolic And Diastolic Provider Name and Address Organization Details Last Updated DateTime 10/05/2023 158.75 cm 34 kg/m2 96.5 % 17497.9 6 g 119/76 mm[Hg] Rita Huitron [facility] 4 15:04:14 Date Recorded Body weight Systolic And Diastolic Provider Name and Address Organization Details Last Updated DateTime 11/05/2021 82335.31 g 110/70 mm[Hg] Elaine Carcamo [facility] 11/05/2021 14:49:57 Date Recorded Body height Body mass index (BMI) Body mass index (BMI) [Percentile] Per age and sex Body weight Systolic And Diastolic Provider Name and Address Organization Details Last Updated DateTime 12/24/2024 158.75 cm 35 kg/m2 97 % 49304.0 8 g 115/76 mm[Hg] Lexi Hunt [facility] 5 12:03:34 Social History Question Answer Notes LastModified by Organizat ion Details LastModified Time Tobacco Smoking Status Never Smoker Elaine apple [facility] 11/05/2021 14:52:45 Are You Blind Or Do You Have Difficulty Seeing? No Information n ot available 11/05/2021 What Is Your Level Of Caffeine Consumption? Occasional Information not available 11/05/2021 In The 14 Days Before Symptom Onset, Have You Had Close Contact With A Laboratory-confirm ed COVID-19 While That Case Was Ill? No [email or web address] Information n ot available 12/24/2024 In The 14 Days Before Symptom Onset, Have You Had Close Contact With A Person Who Is Under Investigation For COVID-19 While That Person Was Ill? No [email or web address] Information not available 12/24/2024 Have You Been To An Area Known To Be High Risk For COVID-19? No [email or web address] Information not available 12/24/2024 Are You Deaf Or Do You Have Serious Difficulty Hearing? No Information not available 11/05/2021 What Type Of Diet Are You Following? REGULAR Information n ot available 11/05/2021 Do You Use Your Seat Belt Or Car Seat Routinely? Yes Information not available 11/05/2021 Do You Have Smoke And Carbon Monoxide Detectors In Your Home? Yes Information not available 11/05/2021 Do You Use Sunscreen Routinely? Yes Information not available 11/05/2021 Do You Have Difficulty Walking Or Climbing Stairs? No Information not available 11/05/2021 Sex: Unknown Functional Status Question Answer Note LastModified by Organizat ion Details LastModified Time Do you use any illicit or recreational drugs? No Information not available 11/05/2021 What is your level of alcohol consumption? None Information not available 11/05/2021 Are you able to walk independently without assistance or assistive devices? [email or web address] Information not available 11/05/2021 Are you able to care for yourself independently? Yes Information not available 11/05/2021 Do you have difficulty dressing, bathing, grooming, or toileting? No Information not available 11/05/2021 What is your exercise level? Moderate Information not available 11/05/2021 Mental Status Question Answer Note LastModified by Organization D etails LastModified Time Do you feel stressed (tense, restless, nervous, or anxious, or unable to sleep at night)? [id number] Information not available 11/05/2021 Family History Relationship Description Onset Age of this Age Resolved Age Notes LastModified by Organization Details LastModified Time Maternal Grandmother Diabetes mellitus Not available 2021 14:51:50 Maternal Grandmother Hypertensive disorder Not available 2021 14:51:56 Maternal Grandmother Heart disease Not available 2021 14:52:02 Mother Hypertensive disorder Not available 2021 14:52:08 Mother Asthma Not available 11/2021 14:52:17 Mother Cyst of ovary Not available 2021 14:52:25 Medical History Condition Response Allergies (Food, seasonal, environmental ) Y Other N Breast Cancer N Drug/Latex Allergies/Reactions N Blood Transfusion N Dermatologic Disorders N Lung Disease N Defects or Inherited Disease N Breast Problem N Gestational Diabetes N Hematologic disorders N Anesthesia Complications N History of STI N Deep Vein Thrombosis N Polycystic ovary syndrome N Anxiety Disorder N Autoimmune disease N Arthritis N Infertility N Polyps N Acid Reflux (GERD) N History of abnormal pap N Cancer N Stroke N Varicosities N Neurologic/Epilepsy N Endometriosis N High Cholesterol N Headaches N Fibromyalgia N Kidney Disease N Heart Problems N Kidney or Bladder Problems N Thyroid Problems N GI Problems N Eating Disorder N Anemia N Art (IVF or FET) N Psychiatric Illness N Ovarian Cancer N Diabetes N Pulmonary (TB, Asthma) N Hepatitis/Liver Disease N No Past Medical History N Eczema N Urinary Tract Infection N Abuse/Domestic Violence N Asthma N Trauma/Violence N Depression/ depression N Heart Disease N Pre-Eclampsia N Hypertension N Osteoporosis N Thrombophilias N Gynecological History Statement/Question Response Flow Moderate Date of LMP 12/14/2024 Was last menstrual period normal Y STIs/STDs N HPV Vaccine N Duration of Flow (days) 7 Current Control Method Other If Post Menopausal, Age at Menopause 10 Are cycles usually normal Y Frequency of Cycle (Q days) 28 Sexually Active? Y Menses Monthly Y Date of Last Pap Smear Sexual Problems? N Desired Control Method Other LMP Definite Obstetrics History GPAL:G 0 P 0 0 0 0 Type Value Living 0 Total 0 Past Encounters Encounter ID Performer Location Encounter Start Date Encounter Closed Date Diagnosis/Indication Diagnosis SNOMED-CT Code Diagnosis ICD10 Code Diagnosis IMO Codes Diagnosis Note [id number] [facility] [address] [address] 11/05/2021 14:32:59 11/05/2021 15:24:13 Gynecologic examination 63990698 Z01.419 Take Calcium with Vitamin D 1200mg daily if not receiving in daily diet. It is strongly advised to have an annual flu shot and up can obtain at most pharmacies . If you have not had a TDap shot in the last 10 years you should obtain one as well. Discussed with patient & provided with informatio n regarding Gardisil vaccine to prevent the 4 strains for HPV that cause cervical cancer. Encourage safe sexual practices, to use condoms and limit partners if not already in a monogamous relationsh ip. Do monthly self breast exams. BRCA testing is now available for patients with strong genetic history of female cancer. If interested contact the office. Engage in daily exercise of low impact aerobic exercise 45-60 minutes 4-5 times weekly. Avoid tobacco, illicit drugs, and alcohol. This lifestyle behavior pattern will lead to less health conditions and longer life span. If BMI greater than 25 weight watchers or dietary consult advised. Pap smear is not recommende d prior to the age of 21. If you have any concerns, pelvic, or vaginal problems we can discuss testing. Patient received above instructio ns, and questions have been answered. If you have any questions please call or respond to this email. 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 Will return if any issues or by 1yr Additional precaution danielle measures were taken to minimize potential exposure to the Covid-19 virus during this patient s visit, including available hand field hockey coach upon arrive, temperatur e check and being asked a series of screening questions. All staff wore face coverings during this encounter, as well as provided additional cleaning and sanitizing of all surfaces, including countertop s, pens, chairs, door handles, light switches, etc, prior to and following the patient s visit. Irregular periods 119496 07 N92.6 [id number] [facility] [address] [address] 10/05/2023 14:41:03 10/05/2023 15:37:15 Gynecologic examination 91623032 Z01.419 Take Calcium with Vitamin D 1200mg daily if not receiving in daily diet. It is strongly advised to have an annual flu shot and up can obtain at most pharmacies . If you have not had a TDap shot in the last 10 years you should obtain one as well. Discussed with patient & provided with informatio n regarding Gardisil vaccine to prevent the 4 strains for HPV that cause cervical cancer. Encourage safe sexual practices, to use condoms and limit partners if not already in a monogamous relationsh ip. Do monthly self breast exams. BRCA testing is now available for patients with strong genetic history of female cancer. If interested contact the office. Engage in daily exercise of low impact aerobic exercise 45-60 minutes 4-5 times weekly. Avoid tobacco, illicit drugs, and alcohol. This lifestyle behavior pattern will lead to less health conditions and longer life span. If BMI greater than 25 weight watchers or dietary consult advised. Pap smear is not recommende d prior to the age of 21. If you have any concerns, pelvic, or vaginal problems we can discuss testing. Patient received above instructio ns, and questions have been answered. If you have any questions please call or respond to this email. Patient was made aware of the patient portal and may obtain a paper copy of today's plan if desired.Pr scott pap age 20yoSTD SCREEN declined Secondary dysmenorrhea [id number] N94.5 Currently on NuvaringLo ves this device but requests if can use continuous use cycling for break through dysmenorrh ea with menses. Rx sentWill call if issues.Und erstanding reviewed of ivana hussein. [id number] CHRISTY Bah [facility] [address] [address] 12/24/2024 11:45:51 12/24/2024 12:46:17 Gynecologic examination [id number] Z01.438 [id number] Doing well with Nuvaring and desires to continue - refills sent x 12 months, r/b/a reviewedST I screen declinedHP V vaccine recommende d if not already completeds afe sexual practices discussed if SARTC in 1 yr, pap next yr at 20 Secondary dysmenorrhea [id number] N94.5 Health Concerns Section Related Observation LastModified by Organization Detai ls LastModified Time None Recorded Concern Status LastModified by Organization Details LastModified Time None Recorded Advance Directives Directive None Recorded Payers Insurance Date Sequence Insurance Name Policy Number Policy Barraza Covered Member ID Barraza Member ID Guarantor Name 12/24/2024 1 [place] [facility] [employer] Cammy Bullock [id number] 12/24/2024 1 [facility] ON OR AFTER 03/05/21 (MEDICAID REPLACEMENT - HMO) Cammy Bullock [id number] 12/24/2024 1 [facility] ON OR AFTER 03/05/21 (MEDICAID REPLACEMENT - HMO) Cammy Worleyjoseph [id number] Notes Date Note Type Note Provider Name and Address Organization Details Recorded Time 2 text/html Annual GYNReported by PatientHistoryFor history, patient reportsno gynecologic complaints.Genitourinary symptomsFor menstrual cycle, patient reportsirregular cycle intervals (hx of irregular cycles & dysmenorrhea.). For urinary symptoms, patient reportsno hematuriaandno incontinence. For vulva, patient reportsno genital lesion. For vagina, patient reportsnormal vaginal discharge.Breast symptomsFor breast, patient reportsno breast pain,no breast lump, andno nipple discharge.ContraceptionFo r current contraception, patient reportsnuvaring.Endocrine symptomsFor sexual complaints, patient reportsno sexual complaints,no pain during intercourse, andnormal libido. For menopausal symptoms, patient reportsno menopausal symptomsandnormal vaginal lubrication.Psychological symptomsFor psychological symptoms, patient reportsno depression,no anxiety, andno pmdd.Preventative measuresFor preventive measures, patient reportsencourage self breast examination,encourage regular exercise,encourage no tobacco use, andencourage regular mammograms starting age 40. Jaelyn Laird, [facility] [address], [place], [address], [facility] 11/05/2021 15:14:49 4 text/html Annual GYNReported by PatientGenitourinary symptomsFor menstrual cycle, patient reportsnormal menses. For urinary symptoms, patient reportsno hematuriaandno incontinence. For vulva, patient reportsno genital lesion. For vagina, patient reportsnormal vaginal discharge.Breast symptomsFor breast, patient reportsno breast pain,no breast lump, andno nipple discharge.Endocrine symptomsFor sexual complaints, patient reportsno sexual complaints,no pain during intercourse, andnormal libido. For menopausal symptoms, patient reportsno menopausal symptomsandnormal vaginal lubrication.Psychological symptomsFor psychological symptoms, patient reportsno depression,no anxiety, andno pmdd.Preventative measuresFor preventive measures, patient reportsencourage self breast examination,encourage regular exercise,encourage no tobacco use, andencourage regular mammograms starting age 40. CHRISTY Hamlin- [address], [place], [address], [facility] 10/05/2023 15:30:45 5 text/html Annual GYNReported by PatientGenitourinary symptomsFor menstrual cycle, patient reportsnormal menses. For urinary symptoms, patient reportsno hematuriaandno incontinence. For vulva, patient reportsno genital lesion. For vagina, patient reportsnormal vaginal discharge.Breast symptomsFor breast, patient reportsno breast pain,no breast lump, andno nipple discharge.ContraceptionFo r current contraception, patient reportssatisfied with current contraceptionandnuvaring. Endocrine symptomsFor sexual complaints, patient reportsno sexual complaints,no pain during intercourse, andnormal libido. For menopausal symptoms, patient reportsno menopausal symptomsandnormal vaginal lubrication.Psychological symptomsFor psychological symptoms, patient reportsno depression,no anxiety, andno pmdd.Preventative measuresFor preventive measures, patient reportsencourage self breast examination,encourage regular exercise,encourage no tobacco use, andencourage regular mammograms starting age 40.19yo wweBC - Nuvaringshe is unsure if she has had the HPV vaccine CHRISTY Bah [address], [place], [address], [facility] 12/24/2024 12:38:08 OBGyn Episode No OBEpisode recorded.
== END 2025-06-17 10:08 | disposition home or self-care (01) ==
PROVIDERS: Emergency Provider Nurse Practitioner Family; PCP Physician Assistant
DX: S91.332A Puncture wound without foreign body, left foot, initial encounter (principal); W45.0XXA Nail entering through skin, initial encounter
CPT/HCPCS: 99213; G0463